=== PATIENT | male | born 2005 | race Hispanic/Latino ===

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

== ENCOUNTER 2023-07-24 20:32 | Emergency (ER) | payer OTHER ==
[~2023-07-24] VITALS: Ht 162.6 cm; Wt 83.9 kg
[~2023-07-24 20:32] MED LIST: HYDR-3421 PO
[2023-07-25] MEDS: 0.9%NACL 1000ML 1,000 ML IV ONE (00:01)
[2023-07-25] MEDS: KETOROLAC 30MG VIAL (30MG/ML) IVP ONE (00:01)
[2023-07-25] MEDS: METOCLOPRAMIDE 10 MG/2 ML VIAL IVP ONE (00:01)
[2023-07-25] MEDS: FAMOTIDINE 20MG VIAL IV ONE (00:01)
[2023-07-25 00:41] LABS: BASOPHILS # (AUTO) 0.09 K/uL (0.00-0.20); EOSINOPHILS # (AUTO) 0.29 K/uL (0.00-0.70); EOSINOPHILS % (AUTO) 3.1 % (0.0-8.0); HEMATOCRIT 44.3 % (42-54); IMMATURE GRANULOCYTE ABSOLUTE 0.05 K/uL (0-1); LYMPHOCYTES # (AUTO) 2.3 K/uL (1.0-4.8); LYMPHOCYTES % (AUTO) 24.4 % (21.0-51.0); MEAN CORPUSCULAR HEMOGLOBIN 29.5 pg (27.0-33.0); MEAN CORPUSCULAR HGB CONC 34.3 g/dL (32.0-36.0); MEAN CORPUSCULAR VOLUME 85.9 fL (80-100); MONOCYTES # (AUTO) 0.6 K/uL (0.1-1.0); MONOCYTES % (AUTO) 6.6 % (3.0-13.0); NEUTROPHILS # (AUTO) 5.9 K/uL (1.8-7.7); NEUTROPHILS % (AUTO) 64.4 % (40.0-77.0); PLATELET COUNT (AUTO) 288 K/uL (130-400); RED BLOOD CELL COUNT(AUTO) 5.16 MIL/uL (4.50-6.20); RED CELL DISTRIBUTION WIDTH 12.5 % (11.0-15.5); WHITE BLOOD COUNT (AUTO) 9.2 K/uL (4.8-10.8)
[2023-07-25 00:43] LABS: APPEARANCE,URINE CLEAR (CLEAR); BILIRUBIN,URINE NEGATIVE (NEGATIVE); COLOR,URINE LIGHT-YELLOW (YELLOW); GLUCOSE, URINE (UA) NEGATIVE (NEGATIVE); KETONES,URINE NEGATIVE (NEGATIVE); LEUKOCYTE ESTERASE ,URINE NEGATIVE Leu/uL (NEGATIVE); NITRATE,URINE NEGATIVE (NEGATIVE); OCCULT BLOOD,URINE NEGATIVE (NEGATIVE); PROTEIN,URINE 10 mg/dL (NEGATIVE); UROBILINOGEN,URINE 0.2 mg/dL (0.2-1.0)
[2023-07-25 00:46] LABS: ADD UA MICROSCOPIC NO
[2023-07-25 00:53] LABS: BACTERIA,URINE None Seen /HPF (None Seen); MUCUS,URINE Rare LPF (None Seen); WBC,URINE 0-1 /HPF (0-1)
[2023-07-25 01:43] LABS: CREATININE 0.8 mg/dL (0.5-1.5); POTASSIUM 4.1 mmol/L (3.5-5.1)
[2023-07-25 02:29] VITALS: BP 124/73; PULSE 80; RESP 18; O2SAT 99
== END 2023-07-25 02:30 | disposition home or self-care (01) ==
LOC: EDH 20:32
DX: S76.012A Strain of muscle, fascia and tendon of left hip, initial encounter (principal); X58.XXXA Exposure to other specified factors, initial encounter; Y93.89 Activity, other specified; Y92.89 Other specified places as the place of occurrence of the external cause; Y99.8 Other external cause status
CPT/HCPCS: 99284; 71045; 80048; 85025; 81001; 36415; 81003; 96374; 96375; J3490; J7030; J1885; J2765

== ENCOUNTER 2024-02-14 22:02 | Emergency (ER) | payer BC ==
[~2024-02-14] VITALS: Ht 165.1 cm; Wt 77.1 kg
[2024-02-14 22:04] VITALS: BP 140/78; PULSE 103; RESP 20; TEMP 98.4
[2024-02-14] MEDS ORDERED: ondanSETRON 4MG INJ IVP ONE (23:00)
[2024-02-14] MEDS ORDERED: 0.9%NACL 1000ML 1,000 ML IV ONE (23:00)
[2024-02-14 23:25] LABS: BASOPHILS # (AUTO) 0.05 K/uL (0.00-0.20); BASOPHILS % (AUTO) 0.5 % (0.0-5.0); EOSINOPHILS # (AUTO) 0.08 K/uL (0.00-0.70); EOSINOPHILS % (AUTO) 0.9 % (0.0-8.0); HEMATOCRIT 43.4 % (42-54); IMMATURE GRANULOCYTE ABSOLUTE 0.04 K/uL (0-1); LYMPHOCYTES % (AUTO) 21.2 % (21.0-51.0); MEAN CORPUSCULAR HEMOGLOBIN 29.2 pg (27.0-33.0); MEAN CORPUSCULAR HGB CONC 33.6 g/dL (32.0-36.0); MEAN CORPUSCULAR VOLUME 86.8 fL (80-100); MONOCYTES # (AUTO) 0.5 K/uL (0.1-1.0); MONOCYTES % (AUTO) 5.4 % (3.0-13.0); NEUTROPHILS # (AUTO) 6.7 K/uL (1.8-7.7); NEUTROPHILS % (AUTO) 71.6 % (40.0-77.0); PLATELET COUNT (AUTO) 283 K/uL (130-400); RED CELL DISTRIBUTION WIDTH 12.2 % (11.0-15.5); WHITE BLOOD COUNT (AUTO) 9.4 K/uL (4.8-10.8)
[2024-02-14 23:34] LABS: CREATININE 0.9 mg/dL (0.5-1.3); POTASSIUM 3.7 mmol/L (3.5-5.1)
[2024-02-14 23:36] LABS: APPEARANCE,URINE CLEAR (CLEAR); BILIRUBIN,URINE NEGATIVE (NEGATIVE); COLOR,URINE COLORLESS (YELLOW); GLUCOSE, URINE (UA) NEGATIVE (NEGATIVE); KETONES,URINE NEGATIVE (NEGATIVE); LEUKOCYTE ESTERASE ,URINE NEGATIVE Leu/uL (NEGATIVE); NITRATE,URINE NEGATIVE (NEGATIVE); OCCULT BLOOD,URINE NEGATIVE (NEGATIVE); PROTEIN,URINE NEGATIVE (NEGATIVE); UROBILINOGEN,URINE 0.2 mg/dL (0.2-1.0)
[2024-02-14 23:37] LABS: ADD UA MICROSCOPIC NO
[2024-02-14 23:40] LABS: ALBUMIN 3.8 g/dL (3.5-5.0); BILIRUBIN,DIRECT 0.1 mg/dL (0.0-0.3); BILIRUBIN,TOTAL 0.3 mg/dL (0.2-1.0); TOTAL PROTEIN, SERUM 7.6 g/dL (6.0-8.3)
[2024-02-14 23:43] LABS: AMPHET/METH SCREEN,URINE NEGATIVE (NEGATIVE); BARBITURATE SCREEN, URINE NEGATIVE (NEGATIVE); BENZODIAZEPINES SCREEN,URINE NEGATIVE (NEGATIVE); CANNABINOID SCREEN,URINE NEGATIVE (NEGATIVE); COCAINE SCREEN,URINE NEGATIVE (NEGATIVE); OPIATE SCREEN,URINE NEGATIVE (NEGATIVE); PHENCYCLIDINE SCREEN,URINE NEGATIVE (NEGATIVE)
[2024-02-16] MEDS ORDERED: FAMO-136 PO (17:30)
[2024-02-16] MEDS ORDERED: ONDA-243 PO (17:30)
== END 2024-02-15 04:16 | disposition left against medical advice (07) ==
LOC: EDH 22:02
DX: R42 Dizziness and giddiness (principal); R53.1 Weakness; F41.9 Anxiety disorder, unspecified; Z79.899 Other long term (current) drug therapy; Z53.29 Procedure and treatment not carried out because of patient's decision for other reasons
CPT/HCPCS: 36415; 80048; 80076; 80305; 81003; 82550; 83690; 85025

== ENCOUNTER 2024-02-16 15:52 | Emergency (ER) | payer BC ==
[~2024-02-16] VITALS: Ht 165.1 cm; Wt 80.7 kg
[2024-02-16 16:36] LABS: BASOPHILS # (AUTO) 0.05 K/uL (0.00-0.20); BASOPHILS % (AUTO) 0.6 % (0.0-5.0); EOSINOPHILS # (AUTO) 0.02 K/uL (0.00-0.70); EOSINOPHILS % (AUTO) 0.3 % (0.0-8.0); HEMATOCRIT 43.2 % (42-54); IMMATURE GRANULOCYTE ABSOLUTE 0.04 K/uL (0-1); LYMPHOCYTES # (AUTO) 1.5 K/uL (1.0-4.8); LYMPHOCYTES % (AUTO) 18.9 % (21.0-51.0); MEAN CORPUSCULAR HEMOGLOBIN 28.7 pg (27.0-33.0); MEAN CORPUSCULAR HGB CONC 33.6 g/dL (32.0-36.0); MEAN CORPUSCULAR VOLUME 85.5 fL (80-100); MONOCYTES # (AUTO) 0.4 K/uL (0.1-1.0); MONOCYTES % (AUTO) 4.4 % (3.0-13.0); NEUTROPHILS % (AUTO) 75.3 % (40.0-77.0); PLATELET COUNT (AUTO) 287 K/uL (130-400); RED BLOOD CELL COUNT(AUTO) 5.05 MIL/uL (4.50-6.20); RED CELL DISTRIBUTION WIDTH 12.1 % (11.0-15.5); WHITE BLOOD COUNT (AUTO) 7.9 K/uL (4.8-10.8)
[2024-02-16 16:41] LABS: CREATININE 0.9 mg/dL (0.5-1.3); POTASSIUM 4.1 mmol/L (3.5-5.1)
[2024-02-16] MEDS: ondanSETRON 4MG INJ IVP ONE (16:51)
[2024-02-16] MEDS: FAMOTIDINE 20MG VIAL IV ONE (16:51)
[2024-02-16] MEDS ORDERED: FAMO-136 PO (17:30)
[2024-02-16] MEDS ORDERED: ONDA-243 PO (17:30)
[2024-02-16 17:40] VITALS: BP 106/80; PULSE 92; RESP 18; TEMP 98.4; O2SAT 98
== END 2024-02-16 18:06 | disposition home or self-care (01) ==
LOC: EDH 15:52
DX: F41.9 Anxiety disorder, unspecified (principal); K29.70 Gastritis, unspecified, without bleeding; Z79.899 Other long term (current) drug therapy
CPT/HCPCS: 99284; 74176; 96374; 96375; 80048; 85025; 36415; 93005; J3490; J2405

== ENCOUNTER 2024-05-03 01:57 | Emergency (ER) | payer BC ==
[~2024-05-03] VITALS: Ht 165.1 cm; Wt 81.6 kg
[~2024-05-03 01:57] MED LIST changes: +FAMO-136 PO; +ONDA-243 PO
[2024-05-03 01:59] VITALS: TEMP 97.3
[2024-05-03 02:37] LABS: BASOPHILS # (AUTO) 0.05 K/uL (0.00-0.20); BASOPHILS % (AUTO) 0.6 % (0.0-5.0); EOSINOPHILS # (AUTO) 0.21 K/uL (0.00-0.70); EOSINOPHILS % (AUTO) 2.4 % (0.0-8.0); HEMATOCRIT 47.4 % (42-54); IMMATURE GRANULOCYTE ABSOLUTE 0.04 K/uL (0-1); LYMPHOCYTES # (AUTO) 2.7 K/uL (1.0-4.8); LYMPHOCYTES % (AUTO) 30.8 % (21.0-51.0); MEAN CORPUSCULAR HEMOGLOBIN 28.9 pg (27.0-33.0); MEAN CORPUSCULAR VOLUME 85.1 fL (80-100); MONOCYTES # (AUTO) 0.5 K/uL (0.1-1.0); NEUTROPHILS # (AUTO) 5.3 K/uL (1.8-7.7); NEUTROPHILS % (AUTO) 59.7 % (40.0-77.0); PLATELET COUNT (AUTO) 314 K/uL (130-400); RED BLOOD CELL COUNT(AUTO) 5.57 MIL/uL (4.50-6.20); RED CELL DISTRIBUTION WIDTH 12.3 % (11.0-15.5); WHITE BLOOD COUNT (AUTO) 8.9 K/uL (4.8-10.8)
[2024-05-03 02:39] VITALS: BP 120/75; PULSE 85; RESP 18; O2SAT 99
[2024-05-03 02:54] LABS: CARBON DIOXIDE 32 mmol/L (21-32); CHLORIDE 103 mmol/L (101-111); CREATINE KINASE, TOTAL 106 U/L (21-232); GLOMERULAR FILTR. RATE CALC 110 mL/min (>90); GLUCOSE,RANDOM 89 mg/dL (70-105); SODIUM SERUM 140 mmol/L (136-145); UREA NITROGEN, BLOOD 9 mg/dL (7-18)
--- NOTE | 2024-05-03 04:06 | ERN ---
General Chief Complaint: Multiple Complaints Stated Complaint: DIFFICULTY SLEEPING, SOB, MUSCLE CRAMPS, CONSTIPAT Time Seen by MD: 02:03 History of Present Illness Initial Comments 19-year-old male who comes in with a chief complaint of difficulty sleeping and shortness of breath. Patient reports he occasionally gets pain over his chest. Patient reports he has also having muscle cramps 3 Allergies: Coded Allergies: No Known Drug Allergies (Unverified Allergy, Unknown, 10/26/19) Home Meds Active Scripts Famotidine (Pepcid) 20 Mg Tablet, 20 MG PO DAILY for 5 Days, #5 TAB Prov:RAMON SAN 02/16/24 Ondansetron (Ondansetron Odt) 4 Mg Tab.rapdis, 4 MG PO BID for 7 Days, #14 TAB Prov:RAMON SAN 02/16/24 Hydroxyzine HCl (Hydroxyzine HCl) 25 Mg Tablet, 25 MG PO BID for anxiety, #15 TAB Prov:HERMELINDA PATEL 11/24/22 Past Medical History Past Medical History: No Pertinent History Past Surgical History: Other Surgical History Other: CHEST SX Social History Social History: ETOH ROS Dictation Constitutional: Negative for fever,chills, and weight loss Eyes: Negative for injury, pain,redness, and discharge ENT: Negative for injury,pain or swelling Cardiovascular: Positive for chest pain Respiratory: Positive shortness of breath Abdomen/GI: Negative for abdominal pain, nausea, vomiting, diarrhea, and constipation Back: Negative for injury and pain : Negative for injury, bleeding and discharge MS/Extremity: Negative for injury and deformity Skin: Negative for rash, and discoloration Neuro: Negative for headache, weakness, numbness, tingling, and seizure Psych: Negative for suicide ideation, homicidal ideation, and hallucinations Physical Exam Physical Exam Dictation General: awake, alert, NAD Head/Face: Normocephalic, atraumatic Eyes: PERRL, EOMI ENT: oral cavity clear, Neck: Trachea midline, suppl Cardiovascular: RRR, normal S1/S2, No MRGs, no JVD Respiratory: CTAB, no respiratory distress, No rales or wheezes Abdomen: Soft, non-tender, non-distended, normal bowel sounds, no guarding or rebound. Skin: Warm, dry, normal turgor, no rash MS/Extremity: Pulses equal, no cyanosis, neurovascular intact, FROM Neuro: COAx4, GCS 15, strength 5/5, CN 2-12 intact, normal cerebellar exam, normal gait, Psych: Normal behavior, mood, and affect normal General Appearance: (+) no apparent distress Results Laboratory and Microbiology Lab and Micro Result Laboratory Tests Test 05/03/24 02:30 White Blood Count 8.9 K/uL (4.8-10.8) Red Blood Count 5.57 MIL/uL (4.50-6.20) Hemoglobin 16.1 g/dL (14.0-18.0) Hematocrit 47.4 % (42-54) Mean Corpuscular Volume 85.1 fL (80-100) Mean Corpuscular Hemoglobin 28.9 pg (27.0-33.0) Mean Corpuscular Hemoglobin Concent 34.0 g/dL (32.0-36.0) Red Cell Distribution Width 12.3 % (11.0-15.5) Platelet Count 314 K/uL (130-400) Mean Platelet Volume 10.7 fL (7.5-10.5) H Immature Granulocyte % (Auto) 0.5 % (0-1) Neutrophils (%) (Auto) 59.7 % (40.0-77.0) Lymphocytes (%) (Auto) 30.8 % (21.0-51.0) Monocytes (%) (Auto) 6.0 % (3.0-13.0) Eosinophils (%) (Auto) 2.4 % (0.0-8.0) Basophils (%) (Auto) 0.6 % (0.0-5.0) Neutrophils # (Auto) 5.3 K/uL (1.8-7.7) Lymphocytes # (Auto) 2.7 K/uL (1.0-4.8) Monocytes # (Auto) 0.5 K/uL (0.1-1.0) Eosinophils # (Auto) 0.21 K/uL (0.00-0.70) Basophils # (Auto) 0.05 K/uL (0.00-0.20) Absolute Immature Granulocyte (auto 0.04 K/uL (0-1) Nucleated Red Blood Cells 0.0 % (0.0-0.19) Sodium Level 140 mmol/L (136-145) Potassium Level 4.0 mmol/L (3.5-5.1) Chloride Level 103 mmol/L (101-111) Carbon Dioxide Level 32 mmol/L (21-32) Blood Urea Nitrogen 9 mg/dL (7-18) Creatinine 1.0 mg/dL (0.5-1.3) Glomerular Filtration Rate Calc 110 mL/min (>90) Random Glucose 89 mg/dL (70-105) Total Calcium 9.3 mg/dL (8.5-10.1) Total Creatine Kinase 106 U/L (21-232) Troponin I High Sensitivity < 4.0 ng/L (4-75) L MDM Patient has a negative workup as labs and chest x-ray are within normal limits MDM: Differential diagnosis: Insomnia Rationale: Tests considered and ordered secondary to shared decision making include: Previous outside records reviewed: Old ER visits. Risk of complication and/or morbidity or mortality of patient management: None Medications-Per medication reconciliation Need for hospitalization: Patient does not meet criteria for hospitalization. Need for emergency major/minor surgery: No There are no social concerns with this patient. Prescription drug management Prescriptions will include symptomatic care Patient's prior external medical records from other ER visits were reviewed by me as indicated. Prior testing and results from previous visits were reviewed. Prior tests were taken into account with medical decision making and resource utilization, independent historian/historians were used to obtain complete medical history. I independently interpreted the test that were performed, results were reviewed by me and considered findings on radiology if ordered. Medical management and examination interpretation discussions were had by me with other qualified healthcare professionals as indicated for the patient's care. ED Course Orders Procedure Category Date Status Time Cbc With Differential LAB 05/03/24 Complete 02:14 Cardiac Panel LAB 05/03/24 Complete 02:14 Chest 1vw RAD 05/03/24 Taken 02:14 12 Lead Ekg Tracing- EKG 05/03/24 Logged Technical 02:14 Basic Metabolic Panel LAB 05/03/24 Complete 02:14 Vital Signs Date Time Temp Pulse Resp B/P (MAP) Pulse Ox O2 Delivery O2 Flow Rate FiO2 05/03/24 02:39 85 18 120/75 99 Room Air* 0 05/03/24 01:59 97.3 85 16 126/86 97 Room Air* 0 05/03/24 01:59 97.3 85 16 126/86 97 Room Air 0 DX & DISP Disposition: Discharge Departure Impression: Primary Impression: Anxiety Additional Impression: Insomnia Condition: Stable Additional Instructions: Please follow up with your primary care physician in the next 1-7 days to discuss your anxiety. Please make sure you have good sleep hygiene in not have any screen time 3 hours before he would like to go to bed Referrals: JERONIMO LARA MD (PCP) HERBIE CHANDLER MD May 03, 2024 04:05
--- NOTE | 2024-05-03 05:11 | EKG ---
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
--- NOTE | 2024-05-03 08:48 | HMCIMG ---
CHEST 1VW HISTORY: Shortness of breath COMPARISON: 07/25/2023 FINDINGS: A frontal projection of the chest was obtained. No acute pulmonary infiltrates is seen. The heart is normal in size. Prominent interstitial markings are seen. Degenerative changes are seen. No evidence of aortic calcification is seen. IMPRESSION: 1. No acute pulmonary infiltrate is seen.
== END 2024-05-03 04:20 | disposition home or self-care (01) ==
LOC: EDH 01:57
DX: G47.00 Insomnia, unspecified (principal); F41.9 Anxiety disorder, unspecified; Z79.899 Other long term (current) drug therapy; Z98.890 Other specified postprocedural states
CPT/HCPCS: 36415; 71045; 80048; 82550; 84484; 85025; 93005; 99284

== ENCOUNTER 2024-05-18 20:33 | Emergency (ER) | payer BC ==
[~2024-05-18] VITALS: Ht 165.1 cm; Wt 81.6 kg
[2024-05-18] MEDS: LACTATED RINGERS 1000ML 1,000 ML IV ONE (21:04)
[2024-05-18 21:05] LABS: BASOPHILS # (AUTO) 0.06 K/uL (0.00-0.20); BASOPHILS % (AUTO) 0.8 % (0.0-5.0); EOSINOPHILS # (AUTO) 0.13 K/uL (0.00-0.70); EOSINOPHILS % (AUTO) 1.8 % (0.0-8.0); HEMATOCRIT 43.5 % (42-54); IMMATURE GRANULOCYTE ABSOLUTE 0.03 K/uL (0-1); LYMPHOCYTES # (AUTO) 1.6 K/uL (1.0-4.8); LYMPHOCYTES % (AUTO) 22.2 % (21.0-51.0); MEAN CORPUSCULAR HEMOGLOBIN 29.1 pg (27.0-33.0); MEAN CORPUSCULAR VOLUME 85.5 fL (80-100); MONOCYTES # (AUTO) 0.5 K/uL (0.1-1.0); MONOCYTES % (AUTO) 6.8 % (3.0-13.0); NEUTROPHILS # (AUTO) 4.9 K/uL (1.8-7.7); PLATELET COUNT (AUTO) 278 K/uL (130-400); RED BLOOD CELL COUNT(AUTO) 5.09 MIL/uL (4.50-6.20); RED CELL DISTRIBUTION WIDTH 12.3 % (11.0-15.5); WHITE BLOOD COUNT (AUTO) 7.2 K/uL (4.8-10.8)
[2024-05-18] MEDS: ondanSETRON 4MG INJ IVP ONE (21:06)
[2024-05-18] MEDS: PANTOPrazole 40 MG/VIAL IVP ONE (21:06)
[2024-05-18 21:08] LABS: APPEARANCE,URINE CLEAR (CLEAR); BILIRUBIN,URINE NEGATIVE (NEGATIVE); COLOR,URINE LIGHT-YELLOW (YELLOW); GLUCOSE, URINE (UA) NEGATIVE (NEGATIVE); KETONES,URINE NEGATIVE (NEGATIVE); LEUKOCYTE ESTERASE ,URINE NEGATIVE Leu/uL (NEGATIVE); NITRATE,URINE NEGATIVE (NEGATIVE); OCCULT BLOOD,URINE NEGATIVE (NEGATIVE); PROTEIN,URINE NEGATIVE (NEGATIVE); UROBILINOGEN,URINE 0.2 mg/dL (0.2-1.0)
[2024-05-18 21:09] LABS: ADD UA MICROSCOPIC NO
[2024-05-18 21:15] LABS: AMPHET/METH SCREEN,URINE NEGATIVE (NEGATIVE); BARBITURATE SCREEN, URINE NEGATIVE (NEGATIVE); BENZODIAZEPINES SCREEN,URINE NEGATIVE (NEGATIVE); CANNABINOID SCREEN,URINE NEGATIVE (NEGATIVE); COCAINE SCREEN,URINE NEGATIVE (NEGATIVE); OPIATE SCREEN,URINE NEGATIVE (NEGATIVE); PHENCYCLIDINE SCREEN,URINE NEGATIVE (NEGATIVE)
[2024-05-18 21:28] LABS: CREATININE 0.9 mg/dL (0.5-1.3); POTASSIUM 4.3 mmol/L (3.5-5.1)
[2024-05-18 21:32] LABS: ALBUMIN 3.6 g/dL (3.5-5.0); BILIRUBIN,TOTAL 0.3 mg/dL (0.2-1.0); TOTAL PROTEIN, SERUM 7.6 g/dL (6.0-8.3)
[2024-05-18] MEDS ORDERED: PANT40TA55 PO (21:43)
--- NOTE | 2024-05-18 21:44 | ERN ---
General Chief Complaint: Nausea,Vomiting,Diarrhea Stated Complaint: WEAKNESS, NAUSEA, DIARRHEA X 1 DAY Time Seen by MD: 20:37 Source: patient, family History of Present Illness Initial Comments PATIENT IS A 19-YEAR-OLD MALE COMING IN TO BE EVALUATED FOR NAUSEOUSNESS AND VOMITING. HE STATES HE WAS TOLD BEFORE TO AVOID GREASY FOODS THAT THIS CAUSES GASTRITIS. HE STATES THAT HE HAS BEEN EATING GREASY FOODS SECONDARY TO THE HOLIDAYS. CAME IN TO BE EVALUATED FOR THESE SYMPTOMS. Allergies: Coded Allergies: No Known Drug Allergies (Unverified Allergy, Unknown, 10/26/19) Home Meds Active Scripts Famotidine (Pepcid) 20 Mg Tablet, 20 MG PO DAILY for 5 Days, #5 TAB Prov:RAMON SAN 02/16/24 Ondansetron (Ondansetron Odt) 4 Mg Tab.rapdis, 4 MG PO BID for 7 Days, #14 TAB Prov:RAMON SAN 02/16/24 Hydroxyzine HCl (Hydroxyzine HCl) 25 Mg Tablet, 25 MG PO BID for anxiety, #15 TAB Prov:HERMELINDA PATEL 11/24/22 Past Medical History Past Medical History: No Pertinent History Past Surgical History: None Surgical History Other: CHEST SX Social History Social History: ETOH ROS Dictation CONSTITUTIONAL: NO CHILLS, NO FEVER, NO WEAKNESS, NO DIAPHORESIS, NO MALAISE. HEAD/FACE: NO SIGNS OF TRAUMA. EENT: NO EYE PAIN, NO BLURRED VISION, NO TEARING, NO DOUBLE VISION, NO EAR PAIN, NO EAR DISCHARGE, NO NOSE PAIN, NO NASAL CONGESTION, NO THROAT PAIN, NO THROAT SWELLING, NO MOUTH PAIN. RESPIRATORY: NO COUGH, NO ORTHOPNEA, NO SOB, NO STRIDOR, NO WHEEZING. CARDIOVASCULAR: NO CHEST PAIN, NO EDEMA, NO PALPITATIONS, NO SYNCOPE. GASTROINTESTINAL/ABDOMINAL: NO ABDOMINAL PAIN, NO CONSTIPATION, DIARRHEA, NAUSEA, VOMITING. GENITOURINARY: NO ABNORMAL DISCHARGE, NO DYSURIA, NO FREQUENT URINATION, NO HEMATURIA. NO COMPLAINTS OF PAIN IN THE GENITALS. MUSCULOSKELETAL: NO BACK PAIN, NO GOUT, NO JOINT PAIN, NO JOINT SWELLING, NO MUSCLE PAIN, NO MUSCLE STIFFNESS, NO NECK PAIN. INTEGUMENTARY: NO CHANGE IN COLOR, NO CHANGE IN HAIR/NAILS, NO DRYNESS, NO LESION, NO LUMPS, NO RASH. NEUROLOGICAL/PSYCH: NO ANXIETY, NOT DEPRESSED, NO EMOTIONAL PROBLEM, NO HEADACHE, NO NUMBNESS, NO PRE-EXISTING DEFICIT, NO HISTORY OF SEIZURES, NO TREMORS, NO WEAKNESS. HEMATOLOGIC/LYMPHATIC: NOT ANEMIC, NO HISTORY OF BLOOD CLOTS, NO APPARENT BLEEDING, NO BRUISING, GLANDS NOT SWOLLEN. ALL SYSTEMS NEGATIVE, EXCEPT NOTED. Physical Exam Physical Exam Dictation VITAL SIGNS: REVIEWED. GENERAL APPEARANCE: ALERT, ORIENTED X3, NO ACUTE DISTRESS, OBESE. HEAD AND FACE: NON-TRAUMATIC. EYES: PERRL, PINK CONJUNCTIVAS, EYELID NO TRAUMA, ANTERIOR CHAMBER CLEAR. EARS: PINNAS INTACT AND NO SIGNS OF TRAUMA OR ERYTHEMA. EAR CANALS CLEAR AND NO DISCHARGE. TMS NO ERYTHEMA. NOSE: NO DISCHARGE, NO BLEEDING. OROPHARYNX: MOUTH NORMAL, TEETH NO CARIES, TONGUE PINK. PHARYNX CLEAR, NO ERYTHEMA. TONSILS NO EXUDATES, NO ABSCESSES NOTED. MUCOUS MEMBRANE MOIST. NECK: SUPPLE, NON-TENDER, NO THYROMEGALY, NO MASSES, NO JVD, NO BRUITS. BREAST: DEFERRED. CHEST: NO TENDERNESS, NO CREPITUS, NO PARADOXICAL MOVEMENT, NO RETRACTIONS. LUNGS: CLEAR, WELL-VENTILATED, SYMMETRIC, NO RALES, NO WHEEZING, NO RHONCHI, NO STRIDOR, GOOD BREATH SOUNDS BILATERALLY. HEART: REGULAR RATE, REGULAR RHYTHM, NO MURMUR, NO GALLOPS. VASCULAR: NO PERIPHERAL EDEMA. ABDOMEN: SOFT, POSITIVE BOWEL SOUNDS, NONDISTENDED, NO GUARDING, NONTENDER, NO REBOUND, NO MASSES NO HEPATOMEGALY, NO SPLENOMEGALY, NO DE LEON'S SIGN, NO HERNIAS. RECTAL: DEFERRED. GENITAL: DEFERRED. NEUROLOGICAL: NORMAL SPEECH, GROSS MOTOR FUNCTION INTACT, GROSS SENSORY FUNCTION INTACT. MUSCULOSKELETAL: NECK NONTENDER, FULL RANGE OF MOTION, BACK NONTENDER, FULL RANGE OF MOTION. EXTREMITIES: NONTENDER, FULL RANGE OF MOTION. SKIN: COLOR PINK, DRY, NO TURGOR, NO RASH, NO LACERATIONS, NO ABRASIONS, NO CONTUSIONS. LYMPHATICS: DEFERRED. Results Laboratory and Microbiology Lab and Micro Result Laboratory Tests Test 05/18/24 20:42 05/18/24 20:56 05/18/24 20:58 Urine Color LIGHT-YELLOW (YELLOW) Urine Appearance CLEAR (CLEAR) Urine pH 6.0 (5.0-8.0) Urine Specific Olga 1.024 (1.001-1.031) Urine Protein NEGATIVE mg/dL (NEGATIVE) Urine Glucose (UA) NEGATIVE mg/dL (NEGATIVE) Urine Ketones NEGATIVE mg/dL (NEGATIVE) Urine Occult Blood NEGATIVE (NEGATIVE) Urine Nitrate NEGATIVE (NEGATIVE) Urine Bilirubin NEGATIVE mg/dL (NEGATIVE) Urine Urobilinogen 0.2 mg/dL (0.2-1.0) Urine Leukocyte Esterase NEGATIVE Andre/uL Urine Opiates Screen NEGATIVE (NEGATIVE) Urine Barbiturates Screen NEGATIVE (NEGATIVE) Urine Phencyclidine Screen NEGATIVE (NEGATIVE) Urine Amphetamines Screen NEGATIVE (NEGATIVE) Urine Benzodiazepines Screen NEGATIVE (NEGATIVE) Urine Cocaine Screen NEGATIVE (NEGATIVE) Urine Marijuana (THC) Screen NEGATIVE (NEGATIVE) Sodium Level 143 mmol/L (136-145) Potassium Level 4.3 mmol/L (3.5-5.1) Chloride Level 104 mmol/L (101-111) Carbon Dioxide Level 29 mmol/L (21-32) Blood Urea Nitrogen 11 mg/dL (7-18) Creatinine 0.9 mg/dL (0.5-1.3) Glomerular Filtration Rate Calc 125 mL/min (>90) Random Glucose 80 mg/dL (70-105) Total Calcium 9.3 mg/dL (8.5-10.1) Total Bilirubin 0.3 mg/dL (0.2-1.0) Aspartate Amino Transf (AST/SGOT) 23 U/L (10-37) Alanine Aminotransferase (ALT/SGPT) 33 U/L (12-78) Alkaline Phosphatase 109 U/L (50-136) Total Creatine Kinase 102 U/L (21-232) Total Protein 7.6 g/dL (6.0-8.3) Albumin 3.6 g/dL (3.5-5.0) Lipase 15 U/L (16-77) L White Blood Count 7.2 K/uL (4.8-10.8) Red Blood Count 5.09 MIL/uL (4.50-6.20) Hemoglobin 14.8 g/dL (14.0-18.0) Hematocrit 43.5 % (42-54) Mean Corpuscular Volume 85.5 fL (80-100) Mean Corpuscular Hemoglobin 29.1 pg (27.0-33.0) Mean Corpuscular Hemoglobin Concent 34.0 g/dL (32.0-36.0) Red Cell Distribution Width 12.3 % (11.0-15.5) Platelet Count 278 K/uL (130-400) Mean Platelet Volume 10.8 fL (7.5-10.5) H Immature Granulocyte % (Auto) 0.4 % (0-1) Neutrophils (%) (Auto) 68.0 % (40.0-77.0) Lymphocytes (%) (Auto) 22.2 % (21.0-51.0) Monocytes (%) (Auto) 6.8 % (3.0-13.0) Eosinophils (%) (Auto) 1.8 % (0.0-8.0) Basophils (%) (Auto) 0.8 % (0.0-5.0) Neutrophils # (Auto) 4.9 K/uL (1.8-7.7) Lymphocytes # (Auto) 1.6 K/uL (1.0-4.8) Monocytes # (Auto) 0.5 K/uL (0.1-1.0) Eosinophils # (Auto) 0.13 K/uL (0.00-0.70) Basophils # (Auto) 0.06 K/uL (0.00-0.20) Absolute Immature Granulocyte (auto 0.03 K/uL (0-1) Nucleated Red Blood Cells 0.0 % (0.0-0.19) Labs Reviewed?: Yes EKG/XRAY/US/CT/MRI EKG Comment 05/18/2024 TIME 8:48 P.M. VENTRICULAR RATE [address] WAVE ELEVATION OR DEPRESSION AR 138 MDM MDM: DIFFERENTIAL DIAGNOSIS: VIRAL GASTROENTERITIS, NAUSEA AND VOMITING, HISTORY OF GASTRITIS, PATIENT IS A 19-YEAR-OLD GENTLEMAN COMING IN TO BE EVALUATED FOR NAUSEOUSNESS AND VOMITING. PER PATIENT THESE SYMPTOMS HAS BEEN ONGOING FOR SOME TIME HE WAS DIAGNOSED WITH A GASTRITIS AND WAS TOLD TO AVOID GREASY FOODS HE STATES THAT DURING THE HOLIDAYS HE MORE RECEIVE WITH A NORMAL. UPON EVALUATION HE STATES THERE IS NO FOCAL TENDERNESS IN HIS ABDOMEN. LABORATORY WORKUP DID NOT DISCLOSE ACUTE FINDINGS. PATIENT WILL BE DISCHARGED WITH A DIAGNOSIS OF VIRAL GASTROENTERITIS AND HISTORY OF GASTRITIS. MEDICATION WAS GIVEN AND PATIENT REMAINED ASYMPTOMATIC THROUGHOUT ER VISIT. ED Course Orders Procedure Category Date Status Time Cbc With Differential LAB 05/18/24 Complete 20:42 Comprehensive LAB 05/18/24 Complete Metabolic Panel 20:42 Urinalysis Profile LAB 05/18/24 Complete 20:42 12 Lead Ekg Tracing- EKG 05/18/24 Logged Technical 20:42 Lactated Ringers PHA 05/18/24 Complete 1000ml (Lactated 21:00 Ondansetron 4mg Inj PHA 05/18/24 Complete (Zofran 4mg Inj) 21:00 Pantoprazole 40mg Inj PHA 05/18/24 Complete (Protonix 40mg Inj 21:00 Creatine Kinase, Total LAB 05/18/24 Complete 20:42 Lipase LAB 05/18/24 Complete 20:42 Drug Screen Urine LAB 05/18/24 Complete 20:42 Current Medications Medications (Trade) Dose Ordered Sig/Braulio Route PRN Reason Start Time Stop Time Status Last Admin Dose Admin Lactated Ringer's 1,000 ml @ 0 mls/hr ONCE ONCE IV 05/18/24 21:00 05/18/24 21:01 DC 05/18/24 21:04 Ondansetron HCl (zoFRAN 4MG INJ) 4 mg ONCE ONCE IVP 05/18/24 21:00 05/18/24 21:01 DC 05/18/24 21:06 Pantoprazole Sodium (PROTonix 40MG INJ) 40 mg ONCE ONCE IVP 05/18/24 21:00 05/18/24 21:01 DC 05/18/24 21:06 Vital Signs Date Time Temp Pulse Resp B/P (MAP) Pulse Ox O2 Delivery O2 Flow Rate FiO2 05/18/24 20:36 98.2 90 16 108/75 99 Room Air 0 05/18/24 20:35 98.2 90 16 108/75 99 Room Air* 0 21 DX & DISP Disposition: Discharge Departure Impression: Primary Impression: Gastritis Additional Impression: Viral syndrome Condition: Stable Scripts Pantoprazole Sodium (Protonix) 40 Mg Ectab 1 TAB PO DAILY for 30 Days, #30 TAB 0 Refills Prov: HAYDER HE MD 05/18/24 Additional Instructions: FOLLOW-UP WITH PRIMARY CARE PROVIDER IN 1 TO 2 DAYS. TAKE MEDICATIONS DIRECTED HERE IN THE EMERGENCY ROOM. OKAY TO CONTINUE HOME MEDICATIONS UNLESS OTHERWISE DISCUSSED DURING YOUR VISIT IN THE EMERGENCY ROOM TODAY. RETURN TO YOUR NEAREST EMERGENCY ROOM IF SYMPTOMS WORSEN OR IF THERE IS NO IMPROVEMENT. CALL 911 IF YOU NEED IMMEDIATE ASSISTANCE. TAKE TYLENOL [id number] NEEDED AND IF NO CONTRAINDICATIONS ARE PRESENT. INCREASE ORAL HYDRATION. A WOUND CULTURE OR URINE CULTURE WAS ORDERED HERE IN THE EMERGENCY ROOM DEPARTMENT PLEASE FOLLOW-UP WITH PRIMARY CARE PROVIDER AND ADVISE THEM TO GET REPEAT PORTS FROM OUR FACILITY. IF YOU HAD ANY DONNA WRAP/SPLINTS THAT WERE APPLIED HERE, PLEASE DO NOT REMOVE THEM UNTIL YOU SEE YOUR PRIMARY CARE OR SPECIALTY. REFERRALS: Referrals: SELF,REFERRAL (PCP) RAMON CORRALES MD Time of Disposition: 21:42 HAYDER HE MD May 18, 2024 21:44
[2024-05-18 21:46] VITALS: BP 122/76; PULSE 86; RESP 16; TEMP 98.4; O2SAT 99
[2024-05-18] MEDS: acetaMINOPHEN 500 MG TABLET PO ONE (21:53)
--- NOTE | 2024-05-18 23:42 | EKG ---
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
== END 2024-05-18 21:59 | disposition home or self-care (01) ==
LOC: EDH 20:33
DX: K29.70 Gastritis, unspecified, without bleeding (principal); B34.9 Viral infection, unspecified; Z79.899 Other long term (current) drug therapy
CPT/HCPCS: 99284; 96374; 96375; 82550; 80053; 80305; 83690; 85025; 36415; 93005; 81003; J7120; J2405; J2470

== ENCOUNTER 2024-06-04 11:48 | Emergency (ER) | payer BC ==
[~2024-06-04] VITALS: Ht 165.1 cm; Wt 81.6 kg
[~2024-06-04 11:48] MED LIST changes: +PANT40TA55 PO
[2024-06-04 12:31] LABS: APPEARANCE,URINE CLEAR (CLEAR); BILIRUBIN,URINE NEGATIVE (NEGATIVE); COLOR,URINE COLORLESS (YELLOW); GLUCOSE, URINE (UA) NEGATIVE (NEGATIVE); KETONES,URINE NEGATIVE (NEGATIVE); LEUKOCYTE ESTERASE ,URINE NEGATIVE Leu/uL (NEGATIVE); NITRATE,URINE NEGATIVE (NEGATIVE); OCCULT BLOOD,URINE NEGATIVE (NEGATIVE); PH,URINE 6.5 (5.0-8.0); PROTEIN,URINE NEGATIVE (NEGATIVE); UROBILINOGEN,URINE 0.2 mg/dL (0.2-1.0)
[2024-06-04 12:35] LABS: RBC,URINE 0-1 /HPF (0-1); WBC,URINE 0-1 /HPF (0-1)
--- NOTE | 2024-06-04 13:04 | EKG ---
[facility] Test Date: 2024-06-04 Test Time: 12:56:53 Pat Name: ROGELIO HANEY Department: [facility] Patient ID: [id number] Room: Gender: M Deputy Probation Officer: [id number] : 2005 Requested By: ROD CARPENTER Order Number: [id number] Reading MD: Anjum Adler Measurements Intervals [place] Rate: 80 P: 71 [place]: 142 QRS: 61 QRSD: 86 T: 41 QT: 363 QTc: 419 Interpretive Statements Sinus rhythm Compared to ECG 05/18/2024 20:48:59 ST (T wave) deviation no longer present Electronically Signed On 06-05-2024 10:23:28 INCOMING FREIGHT CLERK by Anjum Adler Please click the below link to view image of tracing.
--- NOTE | 2024-06-04 13:14 | ERN ---
ED Note History of Present Illness Stated Complaint: LIGHTHEADEDNESS Chief Complaint: Blood Sugar Problem Time Seen by MD: 13:07 Dictation: 19-year-old male without past medical history presented to the ER complaining of dizziness, weakness times 3 to 5 days , but he has blamed that everything started around 3 weeks. Stated that he not skip meals, he does not have fever, chills. Patient denies illicit drugs. EMS reported the patient glucose level was low in the 40s, the D5 IV was given to him on the route to the hospital. Allergies: Coded Allergies: No Known Drug Allergies (Unverified Allergy, Unknown, 10/26/19) Home Meds Active Scripts Pantoprazole Sodium (Protonix) 40 Mg Ectab, 1 TAB PO DAILY for 30 Days, #30 TAB 0 Refills Prov:HAYDER HE MD 05/18/24 Famotidine (Pepcid) 20 Mg Tablet, 20 MG PO DAILY for 5 Days, #5 TAB Prov:RAMNO SAN 02/16/24 Ondansetron (Ondansetron Odt) 4 Mg Tab.rapdis, 4 MG PO BID for 7 Days, #14 TAB Prov:RAMON SAN 02/16/24 Hydroxyzine HCl (Hydroxyzine HCl) 25 Mg Tablet, 25 MG PO BID for anxiety, #15 TAB Prov:HERMELINDA PATEL 11/24/22 Past Medical History Past Medical History: No Pertinent History Surgical History: None Surgical History Other: CHEST SX Social History: ETOH Review of System Dictation NEGATIVE EXCEPT PER HPI Constitutional: Negative for fever,chills, and weight loss. Eyes: Negative for injury, pain,redness, and discharge ENT: Negative for injury,pain or swelling Cardiovascular: denies chest pain, palpitations, and edema Respiratory: Negative for shortness of breath, cough, and wheezing, Abdomen/GI: Negative for abdominal pain, nausea, vomiting, diarrhea, and constipation Back: Negative for injury and pain : Negative for injury, bleeding and discharge MS/Extremity: Negative for injury and deformity Skin: Negative for rash, and discoloration Neuro: Reports dizziness, Psych: Negative for suicide ideation, homicidal ideation, and hallucinations Initial Vital Sign VS Vital Signs Date Time Temp Pulse Resp B/P (MAP) Pulse Ox O2 Delivery O2 Flow Rate FiO2 06/04/24 11:50 91 17 113/67 99 Room Air 0 06/04/24 12:30 98.2 21 Physical Exam Dictation General: awake, alert, NAD Head/Face: Normocephalic, atraumatic Eyes: PERRL, EOMI, vision at baseline ENT: oral cavity clear, TMs clear, no signs of infection Neck: Trachea midline, supple, no nuchal rigidity Cardiovascular: RRR, normal S1/S2, No MRGs, no JVD Respiratory: CTAB, no respiratory distress, No rales or wheezes Abdomen: Soft , no tender Skin: Warm, dry, normal turgor, no rash MS/Extremity: Pulses equal, no cyanosis, neurovascular intact, FROM Neuro: COAx4, GCS 15, strength 5/5, CN 2-12 intact, normal cerebellar exam, normal gait, Psych: Normal behavior, mood, and affect normal Results (Laboratory/Radiology) Laboratory/Radiology Laboratory Tests Test 06/04/24 12:08 06/04/24 12:55 06/04/24 13:21 06/04/24 14:48 Urine Color COLORLESS (YELLOW) Urine Appearance CLEAR (CLEAR) Urine pH 6.5 (5.0-8.0) Urine Specific [place] 1.004 (1.001-1.031) Urine Protein NEGATIVE mg/dL (NEGATIVE) Urine Glucose (UA) NEGATIVE mg/dL (NEGATIVE) Urine Ketones NEGATIVE mg/dL (NEGATIVE) Urine Occult Blood NEGATIVE (NEGATIVE) Urine Nitrate NEGATIVE (NEGATIVE) Urine Bilirubin NEGATIVE mg/dL (NEGATIVE) Urine Urobilinogen 0.2 mg/dL (0.2-1.0) Urine Leukocyte Esterase NEGATIVE Andre/uL Urine RBC 0-1 /HPF (0-1) Urine WBC 0-1 /HPF (0-1) Urine Bacteria None /HPF (None Seen) White Blood Count 7.8 K/uL (4.8-10.8) Red Blood Count 5.32 MIL/uL (4.50-6.20) Hemoglobin 15.5 g/dL (14.0-18.0) Hematocrit 45.7 % (42-54) Mean Corpuscular Volume 85.9 fL (80-100) Mean Corpuscular Hemoglobin 29.1 pg (27.0-33.0) Mean Corpuscular Hemoglobin Concent 33.9 g/dL (32.0-36.0) Red Cell Distribution Width 12.5 % (11.0-15.5) Platelet Count 289 K/uL (130-400) Mean Platelet Volume 10.9 fL (7.5-10.5) H Immature Granulocyte % (Auto) 0.3 % (0-1) Neutrophils (%) (Auto) 64.1 % (40.0-77.0) Lymphocytes (%) (Auto) 24.9 % (21.0-51.0) Monocytes (%) (Auto) 5.4 % (3.0-13.0) Eosinophils (%) (Auto) 4.5 % (0.0-8.0) Basophils (%) (Auto) 0.8 % (0.0-5.0) Neutrophils # (Auto) 5.0 K/uL (1.8-7.7) Lymphocytes # (Auto) 2.0 K/uL (1.0-4.8) Monocytes # (Auto) 0.4 K/uL (0.1-1.0) Eosinophils # (Auto) 0.35 K/uL (0.00-0.70) Basophils # (Auto) 0.06 K/uL (0.00-0.20) Absolute Immature Granulocyte (auto 0.02 K/uL (0-1) Nucleated Red Blood Cells 0.0 % (0.0-0.19) Sodium Level 139 mmol/L (136-145) Potassium Level 3.6 mmol/L (3.5-5.1) Chloride Level 100 mmol/L (101-111) L Carbon Dioxide Level 30 mmol/L (21-32) Blood Urea Nitrogen 9 mg/dL (7-18) Creatinine 0.9 mg/dL (0.5-1.3) Glomerular Filtration Rate Calc 125 mL/min (>90) Random Glucose 118 mg/dL (70-105) H Total Calcium 9.1 mg/dL (8.5-10.1) Troponin I High Sensitivity < 4 ng/L (4-75) L Whole Blood Glucose 132 MG/DL (70-110) H 90 MG/DL (70-110) ED Course ED Course Orders Procedure Category Date Status Time Cbc With Differential LAB 06/04/24 Complete 12:10 Basic Metabolic Panel LAB 06/04/24 Complete 12:10 12 Lead Ekg Tracing- EKG 06/04/24 Complete Technical 12:10 Troponin I High LAB 06/04/24 Complete Sensitivity 12:10 Urinalysis LAB 06/04/24 Complete W/Microscopic 12:10 Vital Signs Date Time Temp Pulse Resp B/P (MAP) Pulse Ox O2 Delivery O2 Flow Rate FiO2 06/04/24 14:31 98.2 85 16 97/56 97 Room Air* 0 06/04/24 12:30 98.2 87 16 106/63 99 Room Air* 0 06/04/24 11:50 91 17 113/67 99 Room Air 0 Medical Decision Making MDM 19-year-old male with hypoglycemia symptoms, dizziness, weakness. He received D5 NS on route to the hospital per EMS. Glucose level was performed here and it was above 100, last glucose level was 118 in the lab, after 2 hours it was rechecked and was 90. Hypoglycemia Patient he will need a further evaluation by primary care physician. Recommendation is to check glucose level often chills for q.6 hours home, make a log and take it to primary care physician. DX & DISP Disposition: Discharge Departure Impression: Primary Impression: Hypoglycemia Condition: Stable Additional Instructions: RETURN TO ER FOR ANY ACUTE OR WORSENING SYMPTOMS. FOLLOW-UP IN 1-2 DAYS WITH PRIMARY PROVIDER FOR RECHECK OF TODAY'S SYMPTOMS. Referrals: SELF,REFERRAL (PCP) Time of Disposition: 15:01 ADAMA HUERTA MD Jun 04, 2024 13:13
[2024-06-04 13:15] LABS: BASOPHILS # (AUTO) 0.06 K/uL (0.00-0.20); BASOPHILS % (AUTO) 0.8 % (0.0-5.0); EOSINOPHILS # (AUTO) 0.35 K/uL (0.00-0.70); EOSINOPHILS % (AUTO) 4.5 % (0.0-8.0); HEMATOCRIT 45.7 % (42-54); IMMATURE GRANULOCYTE ABSOLUTE 0.02 K/uL (0-1); LYMPHOCYTES % (AUTO) 24.9 % (21.0-51.0); MEAN CORPUSCULAR HEMOGLOBIN 29.1 pg (27.0-33.0); MEAN CORPUSCULAR HGB CONC 33.9 g/dL (32.0-36.0); MEAN CORPUSCULAR VOLUME 85.9 fL (80-100); MONOCYTES # (AUTO) 0.4 K/uL (0.1-1.0); MONOCYTES % (AUTO) 5.4 % (3.0-13.0); NEUTROPHILS % (AUTO) 64.1 % (40.0-77.0); PLATELET COUNT (AUTO) 289 K/uL (130-400); RED BLOOD CELL COUNT(AUTO) 5.32 MIL/uL (4.50-6.20); RED CELL DISTRIBUTION WIDTH 12.5 % (11.0-15.5); WHITE BLOOD COUNT (AUTO) 7.8 K/uL (4.8-10.8)
[2024-06-04 13:25] LABS: CREATININE 0.9 mg/dL (0.5-1.3); POTASSIUM 3.6 mmol/L (3.5-5.1)
[2024-06-04 15:44] VITALS: BP 103/60; PULSE 91; RESP 16; TEMP 98.2; O2SAT 99
== END 2024-06-04 15:58 | disposition home or self-care (01) ==
LOC: EDH 11:48
DX: E16.2 Hypoglycemia, unspecified (principal); Z79.899 Other long term (current) drug therapy
CPT/HCPCS: 36415; 80048; 81001; 82948; 84484; 85025; 93005; 99284

== ENCOUNTER 2024-07-04 04:12 | Emergency (ER) | payer BC ==
[~2024-07-04] VITALS: Ht 165.1 cm; Wt 81.6 kg
--- NOTE | 2024-07-04 04:33 | ERN ---
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 According to the EMS assessment, his blood sugar level was recorded at 48, prompting treatment with D5, which successfully elevated his blood sugar to 98. The patient has experienced similar episodes in the past month and is currently presenting with hypoglycemia. He is cognizant of his hypoglycemic episodes and sometimes checks his blood sugar using his grandmother's glucometer when he feels unwell. He reports no current use of alcohol, tobacco, or illicit drugs. Allergies: Coded Allergies: No Known Drug Allergies (Unverified Allergy, Unknown, 10/26/19) Home Meds Active Scripts Pantoprazole Sodium (Protonix) 40 Mg Ectab, 1 TAB PO DAILY for 30 Days, #30 TAB 0 Refills Prov:HAYDER HE MD 05/18/24 Famotidine (Pepcid) 20 Mg Tablet, 20 MG PO DAILY for 5 Days, #5 TAB Prov:RAMON SAN 02/16/24 Ondansetron (Ondansetron Odt) 4 Mg Tab.rapdis, 4 MG PO BID for 7 Days, #14 TAB Prov:RAMON SAN 02/16/24 Hydroxyzine HCl (Hydroxyzine HCl) 25 Mg Tablet, 25 MG PO BID for anxiety, #15 TAB Prov:HERMELINDA PATEL 11/24/22 Past Medical History Past Medical History: No Pertinent History Surgical History: None Surgical History Other: CHEST SX Social History: ETOH Review of System Dictation REVIEW OF SYSTEMS CONSTITUTIONAL: Denies fevers, chills, or night sweats. No unintentional weight loss reported. NEUROLOGICAL: Denies headache, amaurosis fugax, motor weakness, sensory deficit, vertigo/spinning sensation, gait abnormalities, or tremors. ENT: No hearing loss, otalgia, otorrhea, rhinitis, rhinorrhea, hoarseness, or sore throat. CARDIOVASCULAR: Denies any exertional angina, dyspnea on exertion, orthopnea, paroxysmal nocturnal dyspnea, palpitations, life-threatening arrhythmias, claudication. PULMONARY: Denies any shortness of breath, cough, phlegm/sputum, hemoptysis, pleuritic chest pain. SLEEP: Denies morning headaches, daytime somnolence or napping. Denies difficulty falling asleep, staying asleep, waking from sleep. Denies knowledge of snoring. GASTROINTESTINAL: Denies any type of dysphagia to either liquids or solids. Denies nausea, vomiting, pyrosis, early satiety, abdominal pain, diarrhea, constipation, or changes in stool consistency or caliber. Denies coffee-ground emesis, hematemesis, hematochezia, or melanotic stools. GENITOURINARY: Denies frequency, urgency, nocturia, hematuria or incontinence (Storage/Irritative symptoms.) Low urinary stream, straining to void, urinary intermittency or hesitancy, splitting of the voiding stream, terminal dribbling. ENDOCRINOLOGIC: Denies polyuria, polydipsia, polyphagia or heat/cold intolerances. HEMATOLOGIC: Denies thrombophilia/previous clots, or coagulopathy/bleeding disorders. ONCOLOGIC: Denies personal history of malignancy. DERMATOLOGIC: Denies rashes or pruritus. PSYCHIATRIC: Denies any suicidal or homicidal ideation. Denies hallucinations. Initial Vital Sign VS Vital Signs Date Time Temp Pulse Resp B/P (MAP) Pulse Ox O2 Delivery O2 Flow Rate FiO2 07/04/24 04:13 98.4 91 16 123/85 98 Room Air* 0 21 Physical Exam Dictation PHYSICAL EXAM GENERAL APPEARANCE: The patient is awake, alert, and oriented, in no acute cardiopulmonary distress. NEUROLOGICAL: Cranial nerves II-XII grossly intact. Motor is 5/5 in bilateral upper and lower extremities proximal to distal. No sensory deficits. HEENT: Face is symmetric. Pupils are equal and reactive. Extraocular movements are intact. NECK: Supple. No JVD. No thyromegaly. No submental, submandibular, pre- /postauricular, occipital or supraclavicular lymphadenopathy. CHEST: Normal chest expansion. No Telemetry. LUNGS: Absence of any rales, rhonchi or any wheezing. CARDIOVASCULAR: Regular. S1 and S2 normal. No appreciable rubs, murmurs or gallops. ABDOMEN: Soft, nontender, and nondistended. There is no rebound, voluntary guarding, or rigidity. : Deferred. No Hobson. EXTREMITIES: Non-edematous and not cyanotic. No clubbing. Good capillary refill. SKIN: No skin breakdown. Results (Laboratory/Radiology) Laboratory/Radiology Laboratory Tests Test 07/04/24 04:24 07/04/24 04:40 Whole Blood Glucose 113 MG/DL (70-110) H White Blood Count 10.4 K/uL (4.8-10.8) Red Blood Count 5.40 MIL/uL (4.50-6.20) Hemoglobin 15.7 g/dL (14.0-18.0) Hematocrit 47.1 % (42-54) Mean Corpuscular Volume 87.2 fL (80-100) Mean Corpuscular Hemoglobin 29.1 pg (27.0-33.0) Mean Corpuscular Hemoglobin Concent 33.3 g/dL (32.0-36.0) Red Cell Distribution Width 12.2 % (11.0-15.5) Platelet Count 288 K/uL (130-400) Mean Platelet Volume 10.5 fL (7.5-10.5) Immature Granulocyte % (Auto) 0.5 % (0-1) Neutrophils (%) (Auto) 68.0 % (40.0-77.0) Lymphocytes (%) (Auto) 19.1 % (21.0-51.0) L Monocytes (%) (Auto) 6.2 % (3.0-13.0) Eosinophils (%) (Auto) 5.5 % (0.0-8.0) Basophils (%) (Auto) 0.7 % (0.0-5.0) Neutrophils # (Auto) 7.1 K/uL (1.8-7.7) Lymphocytes # (Auto) 2.0 K/uL (1.0-4.8) Monocytes # (Auto) 0.6 K/uL (0.1-1.0) Eosinophils # (Auto) 0.57 K/uL (0.00-0.70) Basophils # (Auto) 0.07 K/uL (0.00-0.20) Absolute Immature Granulocyte (auto 0.05 K/uL (0-1) Nucleated Red Blood Cells 0.0 % (0.0-0.19) Sodium Level 141 mmol/L (136-145) Potassium Level 3.8 mmol/L (3.5-5.1) Chloride Level 102 mmol/L (101-111) Carbon Dioxide Level 33 mmol/L (21-32) H Blood Urea Nitrogen 6 mg/dL (7-18) L Creatinine 0.9 mg/dL (0.5-1.3) Glomerular Filtration Rate Calc 125 mL/min (>90) Random Glucose 107 mg/dL (70-105) H Total Calcium 9.2 mg/dL (8.5-10.1) Troponin I High Sensitivity < 4 ng/L (4-75) L ED Course ED Course Orders Procedure Category Date Status Time Cbc With Differential LAB 07/04/24 Complete 04:16 Basic Metabolic Panel LAB 07/04/24 Complete 04:16 Troponin I High LAB 07/04/24 Complete Sensitivity 04:16 Vital Signs Date Time Temp Pulse Resp B/P (MAP) Pulse Ox O2 Delivery O2 Flow Rate FiO2 07/04/24 05:39 98.4 87 12 119/83 98 Room Air* 0 07/04/24 05:16 98.4 93 12 113/80 99 Room Air* 0 07/04/24 04:25 98.8 90 14 124/84 98 Room Air* 0 07/04/24 04:14 98.4 91 16 123/85 98 Room Air 0 07/04/24 04:13 98.4 91 16 123/85 98 Room Air* 0 21 Medical Decision Making [facility] MDM Differential diagnosis: Hypoglycemia, Anxiety disorder Rationale: Tests considered and ordered secondary to shared decision making include: Previous outside records reviewed: Old ER visits. Risk of complication and/or morbidity or mortality of patient management: None Medications-Per medication reconciliation Need for hospitalization: Patient does not meet criteria for hospitalization. Need for emergency major/minor surgery: No There are no social concerns with this patient. Prescription drug management Prescriptions will include symptomatic care Patient's prior external medical records from other ER visits were reviewed by me as indicated. Prior testing and results from previous visits were reviewed. Prior tests were taken into account with medical decision making and resource utilization, independent historian/historians were used to obtain complete medical history. I independently interpreted the test that were performed, results were reviewed by me and considered findings on radiology if ordered. DX & DISP Disposition: Discharge Departure Impression: Primary Impression: Hypoglycemia Additional Impression: Anxiety disorder Condition: Stable Additional Instructions: Signs and symptoms of hypoglycemia: Feeling confused, Having trouble speaking or slurred speech, Blurry vision or seeing double, Loss of balance or trouble walking, and Suddenly feeling very weak or sleepy. Treatment: eat or drink 15 grams of carbohydrates, wait 15 minutes, and then check your blood sugar again Eat a balanced snack or meal with protein and carbs Prevention Eat meals at set times Have snacks between meals Don't skip or delay meals or snacks Limit foods high in sugar and concentrated sweets on their own Visit the nearest emergency department or call 911 should the symptoms get wo rse. Referrals: SELF,REFERRAL (PCP) I have reviewed the case, and I agree with, Diagnosis and Plan I have examined patient, & reviewed all documents, & agreed W/ the Diagnosis, and Plan I performed a substantive portion of the visit. I have reviewed and personally made and approve the management plan that is documented in the notes by myself with MARLON/resident. I acknowledged full responsibility for the patient's management plan. BHARATH MACIAS MD Jul 04, 2024 04:33 CATERINA FRANCO DO Jul 04, 2024 06:08
[2024-07-04 04:49] LABS: BASOPHILS # (AUTO) 0.07 K/uL (0.00-0.20); BASOPHILS % (AUTO) 0.7 % (0.0-5.0); EOSINOPHILS # (AUTO) 0.57 K/uL (0.00-0.70); EOSINOPHILS % (AUTO) 5.5 % (0.0-8.0); HEMATOCRIT 47.1 % (42-54); IMMATURE GRANULOCYTE ABSOLUTE 0.05 K/uL (0-1); LYMPHOCYTES % (AUTO) 19.1 % (21.0-51.0); MEAN CORPUSCULAR HEMOGLOBIN 29.1 pg (27.0-33.0); MEAN CORPUSCULAR HGB CONC 33.3 g/dL (32.0-36.0); MEAN CORPUSCULAR VOLUME 87.2 fL (80-100); MONOCYTES # (AUTO) 0.6 K/uL (0.1-1.0); MONOCYTES % (AUTO) 6.2 % (3.0-13.0); NEUTROPHILS # (AUTO) 7.1 K/uL (1.8-7.7); PLATELET COUNT (AUTO) 288 K/uL (130-400); RED CELL DISTRIBUTION WIDTH 12.2 % (11.0-15.5); WHITE BLOOD COUNT (AUTO) 10.4 K/uL (4.8-10.8)
[2024-07-04 05:12] LABS: CREATININE 0.9 mg/dL (0.5-1.3); POTASSIUM 3.8 mmol/L (3.5-5.1)
[2024-07-04 05:39] VITALS: BP 119/83; PULSE 87; RESP 12; TEMP 98.5; O2SAT 98
== END 2024-07-04 05:51 | disposition home or self-care (01) ==
LOC: EDH 04:12
DX: E16.2 Hypoglycemia, unspecified (principal); F41.9 Anxiety disorder, unspecified; Z79.899 Other long term (current) drug therapy
CPT/HCPCS: 36415; 80048; 82948; 84484; 85025; 99283

== ENCOUNTER 2024-07-18 17:04 | Emergency (ER) | payer BC ==
[~2024-07-18] VITALS: Ht 165.1 cm; Wt 81.6 kg
--- NOTE | 2024-07-18 17:29 | ERN ---
ED Note History of Present Illness Stated Complaint: DIZZINESS Chief Complaint: Dizzy/Light Headed Time Seen by MD: 17:05 Time Seen by Midlevel: 17:05 Dictation: The patient is a 19-year-old with a history of hypoglycemia who presents to the emergency department with complaints of dizziness, weakness while at work about an hour prior to arrival. Patient reports he has had this episodes in the past. Reports he felt the symptoms and had some pizza in his sprite. When EMS picked up patient blood glucose was in the 90s. Patient denies any falls or head trauma. Reports some nausea but no vomiting. No other complaints reported. Allergies: Coded Allergies: No Known Drug Allergies (Unverified Allergy, Unknown, 10/26/19) Home Meds Active Scripts Pantoprazole Sodium (Protonix) 40 Mg Ectab, 1 TAB PO DAILY for 30 Days, #30 TAB 0 Refills Prov:HAYDER HE MD 05/18/24 Famotidine (Pepcid) 20 Mg Tablet, 20 MG PO DAILY for 5 Days, #5 TAB Prov:RAMON SAN 02/16/24 Ondansetron (Ondansetron Odt) 4 Mg Tab.rapdis, 4 MG PO BID for 7 Days, #14 TAB Prov:RAMON SAN 02/16/24 Hydroxyzine HCl (Hydroxyzine HCl) 25 Mg Tablet, 25 MG PO BID for anxiety, #15 TAB Prov:HERMELINDA PATEL 11/24/22 Past Medical History Past Medical History: No Pertinent History Surgical History: Other Surgical History Other: R SHOULDER CYST REMOVAL. Social History: ETOH Review of System Dictation Constitutional: Negative for fever,chills, and weight loss Eyes: Negative for injury, pain,redness, and discharge ENT: Negative for injury,pain or swelling Cardiovascular: Negative for chest pain, palpitations, and edema Respiratory: Negative for shortness of breath, cough, and wheezing, Abdomen/GI: Negative for abdominal pain, vomiting, diarrhea, and constipation positive for nausea Back: Negative for injury and pain : Negative for injury, bleeding and discharge MS/Extremity: Negative for injury and deformity Skin: Negative for rash, and discoloration Neuro: Negative for headache, numbness, tingling, and seizure positive for dizziness, weakness, Psych: Negative for suicide ideation, homicidal ideation, and hallucinations Initial Vital Sign VS Vital Signs Date Time Temp Pulse Resp B/P (MAP) Pulse Ox O2 Delivery O2 Flow Rate FiO2 07/18/24 17:05 97.9 91 16 117/77 98 Room Air 0 Physical Exam Dictation Vital Signs reviewed General Appearance: Alert, oriented x 3, no acute distress, well developed, nourished. Head and Face: non-traumatic. Eyes: PERRL, pink conjunctivas, eyelid no trauma, anterior chamber with arcus senilis. Ears: Pinnas intact and no signs of trauma or erythema ear canals clear and no discharge TM no erythema Nose: No discharge, no bleeding. Oropharynx: Mouth normal, tongue pink. pharynx clear,no erythema, tonsils no exudates, no abscesses noted, mucous membrane moist Neck: Supple, non-tender, no thyromegaly, no masses, no JVD, no bruits Breast:Deferred Chest:No tenderness, no crepitus, no paradoxical movement, no retractions Lungs:Clear, well-ventilated, symmetric, no rales, no wheezing, no rhonchi, no stridor, good breath sounds bilaterally Heart: Regular rate, regular rhythm, no murmur, no gallops Vascular: no peripheral edema, Abdomen: Soft, positive bowel sounds, nondistended, no guarding, nontender, no rebound, no masses no hepatomegaly, no splenomegaly, no Ngo's sign, no hernias. Rectal: Deferred Genital: Deferred Neurological: Normal speech, motor function intact, sensory function intact , upper extremities equal in strength, lower extremities equal in strength, steady gait Musculoskeletal: Neck nontender, full range of motion, back nontender, full range of motion, Extremities: nontender, full range of motion Skin: Color pink, dry, no turgor, no rash, no lacerations, no abrasions, no contusions. Lymphatic: Deferred Results (Laboratory/Radiology) Laboratory/Radiology Laboratory Tests Test 07/18/24 17:40 07/18/24 18:34 White Blood Count 7.2 K/uL (4.8-10.8) Red Blood Count 5.21 MIL/uL (4.50-6.20) Hemoglobin 15.1 g/dL (14.0-18.0) Hematocrit 45.5 % (42-54) Mean Corpuscular Volume 87.3 fL (80-100) Mean Corpuscular Hemoglobin 29.0 pg (27.0-33.0) Mean Corpuscular Hemoglobin Concent 33.2 g/dL (32.0-36.0) Red Cell Distribution Width 12.4 % (11.0-15.5) Platelet Count 302 K/uL (130-400) Mean Platelet Volume 10.4 fL (7.5-10.5) Immature Granulocyte % (Auto) 0.4 % (0-1) Neutrophils (%) (Auto) 70.4 % (40.0-77.0) Lymphocytes (%) (Auto) 22.1 % (21.0-51.0) Monocytes (%) (Auto) 4.2 % (3.0-13.0) Eosinophils (%) (Auto) 1.9 % (0.0-8.0) Basophils (%) (Auto) 1.0 % (0.0-5.0) Neutrophils # (Auto) 5.1 K/uL (1.8-7.7) Lymphocytes # (Auto) 1.6 K/uL (1.0-4.8) Monocytes # (Auto) 0.3 K/uL (0.1-1.0) Eosinophils # (Auto) 0.14 K/uL (0.00-0.70) Basophils # (Auto) 0.07 K/uL (0.00-0.20) Absolute Immature Granulocyte (auto 0.03 K/uL (0-1) Nucleated Red Blood Cells 0.0 % (0.0-0.19) Sodium Level 138 mmol/L (136-145) Potassium Level 4.2 mmol/L (3.5-5.1) Chloride Level 101 mmol/L (101-111) Carbon Dioxide Level 33 mmol/L (21-32) H Blood Urea Nitrogen 13 mg/dL (7-18) Creatinine 0.9 mg/dL (0.5-1.3) Glomerular Filtration Rate Calc 125 mL/min (>90) Random Glucose 85 mg/dL (70-105) Total Calcium 9.4 mg/dL (8.5-10.1) Troponin I High Sensitivity < 4 ng/L (4-75) L Whole Blood Glucose 79 MG/DL (70-110) Labs Reviewed?: Yes EKG: (+) rhythm (Sinus rhythm) EKG Comment: Date:07/18/2024 Time:1737 Ventricular rate:87 MO interval:136 QRS duration:82 QT/QTc:414 EKG interpretation: Sinus rhythm Reviewed by ED Attending no STEMI ED Course ED Course Orders Procedure Category Date Status Time Cbc With Differential LAB 07/18/24 Complete 17:19 Troponin I High LAB 07/18/24 Complete Sensitivity 17:19 12 Lead Ekg Tracing- EKG 07/18/24 Complete Technical 17:19 Basic Metabolic Panel LAB 07/18/24 Complete 17:19 Ondansetron Odt 4mg PHA 07/18/24 In Process Tab (Zofran 4mg Odt) 17:30 Bedside Glucose CPOE 07/18/24 Transmitted Fingerstick 18:56 Current Medications Medications (Trade) Dose Ordered Sig/Braulio Route PRN Reason Start Time Stop Time Status Last Admin Dose Admin Ondansetron HCl (zoFRAN 4MG ODT) 4 mg ONCE SL 07/18/24 17:30 07/18/24 22:30 07/18/24 17:36 Vital Signs Date Time Temp Pulse Resp B/P (MAP) Pulse Ox O2 Delivery O2 Flow Rate FiO2 07/18/24 17:05 97.9 91 16 117/77 98 Room Air 0 Medical Decision Making MDM The patient is a 19-year-old with a history of hypoglycemia who presents to the emergency department with complaints of dizziness, weakness while at work about an hour prior to arrival. Patient reports he has had this episodes in the past. Reports he felt the symptoms and had some pizza in his sprite. When EMS picked up patient blood glucose was in the 90s. Patient denies any falls or head trauma. Reports some nausea but no vomiting. No other complaints reported. CBC showed no leukocytosis, no anemia, chemistry showed no electrolyte imbal ance, glucose of 80, trend down to 79. Patient able to tolerate oral intake. Patient instructed to follow up with primary doctor. Patient has symptoms related to hypoglycemia episode at work. Patient no acute distress, nontoxic appearance. Neurologically intact. No need for further imaging at this time. Vital signs stable. Differential diagnosis: Dehydration, hypoglycemia, electrolyte imbalance Need for hospitalization: Patient does not meet criteria for hospitalization. There are no social concerns with this patient. DX & DISP Disposition: Discharge Departure Impression: Primary Impression: Dizziness Additional Impression: History of hypoglycemia Condition: Stable Additional Instructions: Please follow up with your primary doctor in 1-2 days. If symptoms worsen please return to ER. FOLLOW-UP WITH PRIMARY CARE PROVIDER IN 1 TO 2 DAYS. TAKE MEDICATIONS DIRECTED HERE IN THE EMERGENCY ROOM. OKAY TO CONTINUE HOME MEDICATIONS UNLESS OTHERWISE DISCUSSED DURING YOUR VISIT IN THE EMERGENCY ROOM TODAY. RETURN TO YOUR NEAREST EMERGENCY ROOM IF SYMPTOMS WORSEN OR IF THERE IS NO IMPROVEMENT. CALL 911 IF YOU NEED IMMEDIATE ASSISTANCE. TAKE TYLENOL OR MOTRIN [id number] NEEDED AND IF NO CONTRAINDICATIONS ARE PRESENT. INCREASE ORAL HYDRATION. A WOUND CULTURE OR URINE CULTURE WAS ORDERED HERE IN THE EMERGENCY ROOM DEPARTMENT PLEASE FOLLOW-UP WITH PRIMARY CARE PROVIDER AND ADVISE THEM TO GET REPEAT PORTS FROM OUR FACILITY. IF YOU HAD ANY DONNA WRAP/SPLINTS THAT WERE APPLIED HERE, PLEASE DO NOT REMOVE THEM UNTIL YOU SEE YOUR PRIMARY CARE OR SPECIALTY. Referrals: JAMES WALDRON (PCP) Time of Disposition: 19:31 I have reviewed the case, and I agree with, Diagnosis and Plan TETE COVARRUBIAS Jul 18, 2024 17:29
[2024-07-18] MEDS: ondanSETRON ODT 4MG TAB SL SCH (17:36)
--- NOTE | 2024-07-18 17:45 | EKG ---
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
[2024-07-18 17:53] LABS: BASOPHILS # (AUTO) 0.07 K/uL (0.00-0.20); EOSINOPHILS # (AUTO) 0.14 K/uL (0.00-0.70); EOSINOPHILS % (AUTO) 1.9 % (0.0-8.0); HEMATOCRIT 45.5 % (42-54); IMMATURE GRANULOCYTE ABSOLUTE 0.03 K/uL (0-1); LYMPHOCYTES # (AUTO) 1.6 K/uL (1.0-4.8); LYMPHOCYTES % (AUTO) 22.1 % (21.0-51.0); MEAN CORPUSCULAR HGB CONC 33.2 g/dL (32.0-36.0); MEAN CORPUSCULAR VOLUME 87.3 fL (80-100); MONOCYTES # (AUTO) 0.3 K/uL (0.1-1.0); MONOCYTES % (AUTO) 4.2 % (3.0-13.0); NEUTROPHILS # (AUTO) 5.1 K/uL (1.8-7.7); NEUTROPHILS % (AUTO) 70.4 % (40.0-77.0); PLATELET COUNT (AUTO) 302 K/uL (130-400); RED BLOOD CELL COUNT(AUTO) 5.21 MIL/uL (4.50-6.20); RED CELL DISTRIBUTION WIDTH 12.4 % (11.0-15.5); WHITE BLOOD COUNT (AUTO) 7.2 K/uL (4.8-10.8)
[2024-07-18 18:01] LABS: CREATININE 0.9 mg/dL (0.5-1.3); POTASSIUM 4.2 mmol/L (3.5-5.1)
[2024-07-18 19:43] VITALS: BP 120/78; PULSE 88; RESP 18; TEMP 98.5; O2SAT 99
== END 2024-07-18 19:44 | disposition home or self-care (01) ==
LOC: EDH 17:04
DX: R42 Dizziness and giddiness (principal); R53.1 Weakness; R11.0 Nausea; Z79.899 Other long term (current) drug therapy
CPT/HCPCS: 36415; 80048; 82948; 84484; 85025; 93005; 99284

== ENCOUNTER 2024-09-26 16:32 | Emergency (ER) | payer BC ==
[~2024-09-26] VITALS: Ht 165.1 cm; Wt 85.3 kg
--- NOTE | 2024-09-26 16:42 | ERN ---
ED Note History of Present Illness Stated Complaint: ABDOMINAL PAIN Chief Complaint: Abdominal Pain Time Seen by MD: 16:33 Time Seen by Midlevel: 16:35 Dictation: Mr. Torres is a 19 year old male with history of anxiety, GERD, and hypoglycemia who was transported via EMS to the Emergency Department this afternoon for evaluation of dysuria. He reports 48 hours of intermittent diffuse abdominal pain accompanied by nausea with bilious emesis x 2 (last night). He states he has been experiencing frequent urination with burning, dizziness, and low blood glucose readings. He states yesterday his blood sugar dropped to 60. He denies use of alcohol or recreational drugs. He denies having fever, chills, shortness of breath, cough, chest pain, palpitations, e kamini, hematemesis, constipation, diarrhea, melena, hematochezia, hematuria, flank pain, or headache. Paramedics noted blood glucose 85. He denies having fever, chills, shortness of breath, cough, chest pain, palpitations, edema, vomiting, hematemesis, constipation, diarrhea, melena, hematochezia, painful urination, hematuria, difficulty speaking, difficulty swallowing, vision francisco nges, or headache. Allergies: Coded Allergies: No Known Drug Allergies (Unverified Allergy, Unknown, 10/26/19) Home Meds Active Scripts Pantoprazole Sodium (Protonix) 40 Mg Ectab, 1 TAB PO DAILY for 30 Days, #30 TAB 0 Refills Prov:HAYDER HE MD 05/18/24 Famotidine (Pepcid) 20 Mg Tablet, 20 MG PO DAILY for 5 Days, #5 TAB Prov:RAMON SAN 02/16/24 Ondansetron (Ondansetron Odt) 4 Mg Tab.rapdis, 4 MG PO BID for 7 Days, #14 TAB Prov:RAMON SAN 02/16/24 Hydroxyzine HCl (Hydroxyzine HCl) 25 Mg Tablet, 25 MG PO BID for anxiety, #15 TAB Prov:HERMELINDA PATEL 11/24/22 Past Medical History Past Medical History: Anxiety, GERD Surgical History: Other Surgical History Other: R SHOULDER CYST REMOVAL. PSYCH History: anxiety Social History: ETOH RN Note Reviewed/Agreed w/PFSH: Yes Review of System Dictation REVIEW OF SYSTEMS: CONSTITUTIONAL: Patient denies fevers, chills, sweats and weight changes. Reports fatigue and general weakness. EYES: Patient denies any visual symptoms. EARS, NOSE, AND THROAT: No difficulties with hearing. No symptoms of rhinitis or sore throat. CARDIOVASCULAR: Patient denies chest pains, palpitations, orthopnea and paroxysmal nocturnal dyspnea. RESPIRATORY: No dyspnea on exertion, no wheezing or cough. GI: No diarrhea, constipation, hematochezia or melena.Reports abdominal pain with nausea. He states he had two episodes of vomiting which he described as bright yellow and "sour" : No urinary hesitancy or dribbling. No nocturia. No hematuria. No abnormal urethral discharge. Denies flank pain. Reports frequent urination. Reports burning with urination. MUSCULOSKELETAL: No myalgias or arthralgias. NEUROLOGIC: No chronic headaches, no seizures. Patient denies numbness, tingling or weakness. PSYCHIATRIC: Patient denies problems with mood disturbance. No problems with anxiety. ENDOCRINE: No excessive urination or excessive thirst. Reports low blood glucose readings. States blood sugar dropped to 60 yesterday. DERMATOLOGIC: Patient denies any rashes or skin changes. Initial Vital Sign VS Vital Signs Date Time Temp Pulse Resp B/P (MAP) Pulse Ox O2 Delivery O2 Flow Rate FiO2 09/26/24 16:33 97.9 90 16 126/80 99 Room Air* 0 21 Physical Exam Dictation Vital signs: Reviewed. Afebrile. Constitutional: No acute distress. Non-toxic appearing. Significant other at bedside. Head/Face: Normocephalic, atraumatic. Eyes: Periorbital areas with no swelling, redness, or edema. Lids and lashes are normal. Conjunctival injection is absent. Sclera anicteric. Pupils equal, round, reactive to light. ENT: Pinnas intact and no signs of trauma or erythema. Ear canals clear and no discharge. TMs no erythema. No nasal discharge or bleeding noted. Oropharynx with no exudate, redness, swelling, masses, exudates, or evidence of obstruction. Uvula midline. Mucous membranes dry. Neck: Trachea midline, no masses palpated, and no cervical lymphadenopathy. No swelling. Supple, full range of motion. Chest/Axilla: No tenderness, no crepitus, no paradoxical movement, no retractions. Cardiovascular: Regular rate, regular rhythm, no murmur, no gallops. Symmetric pulses. No peripheral edema. Respiratory: Respirations even and unlabored. Lung sounds clear; no wheezes, rales or rhonchi. Room air spo2 99% Gastrointestinal: Obese. No distention is appreciated. Bowel sounds are normal. No mass or organomegaly . There is no tenderness. No rebound. No rigidity. No voluntary or involuntary guarding. No Ngo's sign. : Urine is pale yellow. Negative CVA tenderness bilaterally. Neurological: Normal speech, gross motor function intact, gross sensory function intact. No focal weakness/Paresthesia. Musculoskeletal/Extremities: All extremities have full range of motion, no pain or tenderness on palpation. Symmetric pulses. Integumentary: Intact. Skin is normal color, warm and dry. Cap refill less than 2 seconds. Results (Laboratory/Radiology) Laboratory/Radiology Laboratory Tests Test 09/26/24 16:35 09/26/24 16:47 09/26/24 16:50 Whole Blood Glucose 84 MG/DL (70-110) White Blood Count 5.8 K/uL (4.8-10.8) Red Blood Count 5.22 MIL/uL (4.50-6.20) Hemoglobin 15.4 g/dL (14.0-18.0) Hematocrit 45.5 % (42-54) Mean Corpuscular Volume 87.2 fL (80-100) Mean Corpuscular Hemoglobin 29.5 pg (27.0-33.0) Mean Corpuscular Hemoglobin Concent 33.8 g/dL (32.0-36.0) Red Cell Distribution Width 12.4 % (11.0-15.5) Platelet Count 271 K/uL (130-400) Mean Platelet Volume 10.3 fL (7.5-10.5) Immature Granulocyte % (Auto) 0.7 % (0-1) Neutrophils (%) (Auto) 61.6 % (40.0-77.0) Lymphocytes (%) (Auto) 28.3 % (21.0-51.0) Monocytes (%) (Auto) 6.6 % (3.0-13.0) Eosinophils (%) (Auto) 1.9 % (0.0-8.0) Basophils (%) (Auto) 0.9 % (0.0-5.0) Neutrophils # (Auto) 3.6 K/uL (1.8-7.7) Lymphocytes # (Auto) 1.6 K/uL (1.0-4.8) Monocytes # (Auto) 0.4 K/uL (0.1-1.0) Eosinophils # (Auto) 0.11 K/uL (0.00-0.70) Basophils # (Auto) 0.05 K/uL (0.00-0.20) Absolute Immature Granulocyte (auto 0.04 K/uL (0-1) Nucleated Red Blood Cells 0.0 % (0.0-0.19) Sodium Level 141 mmol/L (136-145) Potassium Level 4.5 mmol/L (3.5-5.1) Chloride Level 104 mmol/L (101-111) Carbon Dioxide Level 28 mmol/L (21-32) Blood Urea Nitrogen 10 mg/dL (7-18) Creatinine 0.8 mg/dL (0.5-1.3) Glomerular Filtration Rate Calc 129 mL/min (>90) Random Glucose 86 mg/dL (70-105) Total Calcium 8.8 mg/dL (8.5-10.1) Lipase 16 U/L (16-77) Urine Color LIGHT-YELLOW (YELLOW) Urine Appearance CLEAR (CLEAR) Urine pH 7.0 (5.0-8.0) Urine Specific [place] 1.016 (1.001-1.031) Urine Protein NEGATIVE mg/dL (NEGATIVE) Urine Glucose (UA) NEGATIVE mg/dL (NEGATIVE) Urine Ketones NEGATIVE mg/dL (NEGATIVE) Urine Occult Blood NEGATIVE (NEGATIVE) Urine Nitrate NEGATIVE (NEGATIVE) Urine Bilirubin NEGATIVE mg/dL (NEGATIVE) Urine Urobilinogen 0.2 mg/dL (0.2-1.0) Urine Leukocyte Esterase NEGATIVE Andre/uL Labs Reviewed?: Yes ED Course ED Course Orders Procedure Category Date Status Time Urinalysis Profile LAB 09/26/24 Complete 16:34 Basic Metabolic Panel LAB 09/26/24 Complete 16:34 Cbc With Differential LAB 09/26/24 Complete 16:34 Ondansetron Odt 4mg PHA 09/26/24 In Process Tab (Zofran 4mg Odt) 17:00 0.9%Nacl 1000ml (Ns PHA 09/26/24 In Process 1000ml) 17:00 Lipase LAB 09/26/24 Complete 16:47 Current Medications Medications (Trade) Dose Ordered Sig/Braulio Route PRN Reason Start Time Stop Time Status Last Admin Dose Admin Ondansetron HCl (zoFRAN 4MG ODT) 4 mg ONCE SL 09/26/24 17:00 09/26/24 21:00 09/26/24 16:56 Sodium Chloride 1,000 ml @ 0 mls/hr ONCE IV 09/26/24 17:00 09/27/24 16:59 09/26/24 17:23 Vital Signs Date Time Temp Pulse Resp B/P (MAP) Pulse Ox O2 Delivery O2 Flow Rate FiO2 09/26/24 16:34 97.9 90 16 126/80 98 Room Air 0 09/26/24 16:33 97.9 90 16 126/80 99 Room Air* 0 21 Uneventful ED course. Vital signs remained stable; afebrile and normotensive room air SpO2 98 99%. Laboratory findings as noted below. No elevation of WBCs. No electrolyte derangement. UA is clear. Glucose level 84. He received dose Zofran ODT as well as NS 1000 mL IV as bolus. Findings were discussed with patient and all questions were answered. he was instructed to follow up with his PCP for recurrent hypoglycemic episodes. Medical Decision Making MDM MDM: Differential diagnosis: hypoglycemia/electrolyte derangement, dehydration, UTI, gastritis Rationale: Tests considered and ordered secondary to shared decision making include: LAB, EKG Previous outside records reviewed: Old ER visits. Risk of complication and/or morbidity or mortality of patient management: None Medications-Per medication reconciliation Need for hospitalization: Patient does not meet criteria for hospitalization. Need for emergency major/minor surgery: No There are no social concerns with this patient. Prescription drug management: pepcid, zofran Prescriptions will include symptomatic care Patient's prior external medical records from other ER visits were reviewed by me as indicated. Prior testing and results from previous visits were reviewed. Prior tests were taken into account with medical decision making and resource utilization, independent historian/historians were used to obtain complete medical history. I independently interpreted the test that were performed, results were reviewed by me and considered findings on radiology if ordered. Medical management and examination interpretation discussions were had by me with other qualified healthcare professionals as indicated for the patient's care. DX & DISP Disposition: Discharge Departure Impression: Primary Impression: Hypoglycemia Additional Impressions: Nausea, Gastritis Condition: Stable Scripts Famotidine (Famotidine) 20 Mg Tablet 1 TAB PO BID for 30 Days, #60 TAB 0 Refills Prov: MEGA TORRES NP 09/26/24 Ondansetron (Ondansetron Odt) 4 Mg Tab.rapdis 4 MG PO Q6HPRN PRN for nausea, #15 TAB 0 Refills Prov: MEGA TORRES NP 09/26/24 Additional Instructions: Continue to monitor for signs of hypoglycemia: Shakiness, sweating, weakness, dizziness, fainting, blurred vision, hunger, and headache. Avoid skipping meals or strenuous exercise without proper nutrition. Avoid alcohol (especially on an empty stomach). Your meals should include a balanced of protein, fiber, and healthy carbs. Keeps an actually crackers, fruit juice and granola bars on hand. He a log of symptoms and blood glucose readings. Follow up with your primary care provider early next week for follow up you may need additional blood testing such as glucose tolerance test, A1c and/or referral to en docrinologist. Return to the emergency department for worsening of symptoms or concerns. Referrals: JAMES WALDRON (PCP) Time of Disposition: 17:33 MEGA TORRES NP September 26, 2024 16:42
[2024-09-26 16:53] LABS: BASOPHILS # (AUTO) 0.05 K/uL (0.00-0.20); BASOPHILS % (AUTO) 0.9 % (0.0-5.0); EOSINOPHILS # (AUTO) 0.11 K/uL (0.00-0.70); EOSINOPHILS % (AUTO) 1.9 % (0.0-8.0); HEMATOCRIT 45.5 % (42-54); IMMATURE GRANULOCYTE ABSOLUTE 0.04 K/uL (0-1); LYMPHOCYTES # (AUTO) 1.6 K/uL (1.0-4.8); LYMPHOCYTES % (AUTO) 28.3 % (21.0-51.0); MEAN CORPUSCULAR HEMOGLOBIN 29.5 pg (27.0-33.0); MEAN CORPUSCULAR HGB CONC 33.8 g/dL (32.0-36.0); MEAN CORPUSCULAR VOLUME 87.2 fL (80-100); MONOCYTES # (AUTO) 0.4 K/uL (0.1-1.0); MONOCYTES % (AUTO) 6.6 % (3.0-13.0); NEUTROPHILS # (AUTO) 3.6 K/uL (1.8-7.7); NEUTROPHILS % (AUTO) 61.6 % (40.0-77.0); PLATELET COUNT (AUTO) 271 K/uL (130-400); RED BLOOD CELL COUNT(AUTO) 5.22 MIL/uL (4.50-6.20); RED CELL DISTRIBUTION WIDTH 12.4 % (11.0-15.5); WHITE BLOOD COUNT (AUTO) 5.8 K/uL (4.8-10.8)
[2024-09-26] MEDS: ondanSETRON ODT 4MG TAB SL SCH (16:56)
[2024-09-26 17:05] LABS: ADD UA MICROSCOPIC NO; APPEARANCE,URINE CLEAR (CLEAR); BILIRUBIN,URINE NEGATIVE (NEGATIVE); COLOR,URINE LIGHT-YELLOW (YELLOW); GLUCOSE, URINE (UA) NEGATIVE (NEGATIVE); KETONES,URINE NEGATIVE (NEGATIVE); LEUKOCYTE ESTERASE ,URINE NEGATIVE Leu/uL (NEGATIVE); NITRATE,URINE NEGATIVE (NEGATIVE); OCCULT BLOOD,URINE NEGATIVE (NEGATIVE); PROTEIN,URINE NEGATIVE (NEGATIVE); UROBILINOGEN,URINE 0.2 mg/dL (0.2-1.0)
[2024-09-26 17:05] LABS: CREATININE 0.8 mg/dL (0.5-1.3); POTASSIUM 4.5 mmol/L (3.5-5.1)
[2024-09-26] MEDS: 0.9%NACL 1000ML 1,000 ML IV SCH (17:23)
[2024-09-26] MEDS ORDERED: ONDA-243 PO (17:32)
[2024-09-26] MEDS ORDERED: FAMO20TA8 PO (17:32)
[2024-09-26 17:36] VITALS: BP 122/74; PULSE 78; RESP 16; TEMP 97.9; O2SAT 98
--- NOTE | 2024-09-26 17:37 | NUR ---
WAITING FOR FLUIDS TO FINISH BEFORE D/C
== END 2024-09-26 17:56 | disposition home or self-care (01) ==
LOC: EDH 16:32
DX: E16.2 Hypoglycemia, unspecified (principal); R11.0 Nausea; K29.70 Gastritis, unspecified, without bleeding; F41.9 Anxiety disorder, unspecified; Z79.899 Other long term (current) drug therapy
CPT/HCPCS: 99283; 96360; 80048; 83690; 85025; 82948; 81003; 36415; J7030

== ENCOUNTER 2024-11-04 01:53 | Emergency (ER) | payer BC ==
[~2024-11-04] VITALS: Ht 165.1 cm; Wt 81.6 kg
[~2024-11-04 01:53] MED LIST changes: +FAMO20TA8 PO
--- NOTE | 2024-11-04 01:59 | NUR ---
PT PLACED IN ED 14. PT CARE ASSUMED.
--- NOTE | 2024-11-04 02:04 | ERN ---
ED Note History of Present Illness Stated Complaint: LLQ ABDOMINAL PAIN Chief Complaint: Abdominal Pain Time Seen by MD: 02:09 Time Seen by Midlevel: 02:00 Dictation: Mr. Torres is a 19 year old male with history of anxiety and GERD who was transported via EMS to the Emergency Department this morning for evaluation of abdominal pain. He reports 3 days of left lower quadrant abdominal pain x 3 days. He states that he feels like his stomach is "bubbling" and has had several episodes of diarrhea. He states he feels like he is dehydrated. He states that that he felt dizzy and thought he was going to faint so he called 911. He Denies fever, chills, shortness of breath, cough, chest pain, palpitations, edema, nausea, vomiting, hematemesis, constipation, melena, hematochezia, dysuria, headache, or focal weakness/paresthesia Allergies: Coded Allergies: No Known Drug Allergies (Unverified Allergy, Unknown, 10/26/19) Home Meds Active Scripts Dicyclomine HCl (Bentyl) 20 Mg Tab, 20 MG PO q12 hours PRN for abdominal pain/cramping, #10 TAB 0 Refills Prov:MEGA TORRES NP 11/04/24 Ondansetron (Ondansetron Odt) 8 Mg Tab.rapdis, 4 MG PO Q6H for nausea/vomiting for 3 Days, #12 TAB 0 Refills Prov:MEGA TORRES NP 11/04/24 Famotidine (Famotidine) 20 Mg Tablet, 1 TAB PO BID for 30 Days, #60 TAB 0 Refills Prov:MEGA TORRES NP 09/26/24 Ondansetron (Ondansetron Odt) 4 Mg Tab.rapdis, 4 MG PO Q6HPRN PRN for nausea, #15 TAB 0 Refills Prov:MEGA TORRES NP 09/26/24 Pantoprazole Sodium (Protonix) 40 Mg Ectab, 1 TAB PO DAILY for 30 Days, #30 TAB 0 Refills Prov:HAYDER HE MD 05/18/24 Famotidine (Pepcid) 20 Mg Tablet, 20 MG PO DAILY for 5 Days, #5 TAB Prov:RAMON SAN 02/16/24 Ondansetron (Ondansetron Odt) 4 Mg Tab.rapdis, 4 MG PO BID for 7 Days, #14 TAB Prov:RAMON SAN 02/16/24 Hydroxyzine HCl (Hydroxyzine HCl) 25 Mg Tablet, 25 MG PO BID for anxiety, #15 TAB Prov:HERMELINDA PATEL 11/24/22 Past Medical History Past Medical History: Anxiety, GERD Surgical History: Other Surgical History Other: R SHOULDER CYST REMOVAL. Social History: ETOH RN Note Reviewed/Agreed w/PFSH: Yes Review of System Dictation REVIEW OF SYSTEMS: CONSTITUTIONAL: Patient denies fevers, chills, sweats and weight changes. Reports fatigue and general weakness. EYES: Patient denies any visual symptoms. EARS, NOSE, AND THROAT: No difficulties with hearing. No symptoms of rhinitis or sore throat. CARDIOVASCULAR: Patient denies chest pains, palpitations, orthopnea and paroxysmal nocturnal dyspnea. RESPIRATORY: No dyspnea on exertion, no wheezing or cough. GI: No nausea, vomiting, constipation, hematochezia or melena. Reports left- sided abdominal pain x3 days with diarrhea. He states he feels like his stomach is bubbling. : No urinary hesitancy or dribbling. No nocturia or urinary frequency. No abnormal urethral discharge. MUSCULOSKELETAL: No myalgias or arthralgias. NEUROLOGIC: No chronic headaches, no seizures. Patient denies numbness, tingling or weakness. States he became dizzy and thought he was going to pass out PSYCHIATRIC: Patient denies problems with mood disturbance. No problems with anxiety. ENDOCRINE: No excessive urination or excessive thirst. DERMATOLOGIC: Patient denies any rashes or skin changes. Initial Vital Sign VS Vital Signs Date Time Temp Pulse Resp B/P (MAP) Pulse Ox O2 Delivery O2 Flow Rate FiO2 11/04/24 02:00 98.8 80 17 122/73 98 Room Air* 0 21 Physical Exam Dictation Vital signs: Reviewed. Afebrile Constitutional: No acute distress. Non-toxic appearing. Unkempt. Slightly anxious Head/Face: Normocephalic, atraumatic. Eyes: Periorbital areas with no swelling, redness, or edema. Lids and lashes are normal. Conjunctival injection is absent. Sclera anicteric. Pupils equal, round, reactive to light. ENT: Pinnas intact and no signs of trauma or erythema. Ear canals clear and no discharge. TMs no erythema. No nasal discharge or bleeding noted. Oropharynx with no exudate, redness, swelling, masses, exudates, or evidence of obstruction. Uvula midline. Mucous membranes dry Neck: Trachea midline, no masses palpated, and no cervical lymphadenopathy. No swelling. Supple, full range of motion. Chest/Axilla: No tenderness, no crepitus, no paradoxical movement, no retractions. Cardiovascular: Regular rate, regular rhythm, no murmur, no gallops. Symmetric pulses. No peripheral edema. Normotensive. Respiratory: Respirations even and unlabored. Lung sounds clear; no wheezes, rales or rhonchi. Room air spo2 99%. Gastrointestinal: Inspection is normal. No distention is appreciated. Bowel sounds are normal. No mass or organomegaly . There is no tenderness upon light or deep palpation.. No rebound. No rigidity. No voluntary or involuntary guarding. No Ngo's sign. : negative CVA tenderness bilaterally. Neurological: Normal speech, gross motor function intact, gross sensory function intact. No focal weakness/Paresthesia. Musculoskeletal/Extremities: All extremities have full range of motion, no pain or tenderness on palpation. Symmetric pulses. Integumentary: Intact. Skin is normal color, warm and dry. Cap refill less than 2 seconds. Results (Laboratory/Radiology) Laboratory/Radiology Laboratory Tests Test 11/04/24 02:04 White Blood Count 7.5 K/uL (4.8-10.8) Red Blood Count 4.98 MIL/uL (4.50-6.20) Hemoglobin 14.6 g/dL (14.0-18.0) Hematocrit 42.1 % (42-54) Mean Corpuscular Volume 84.5 fL (80-100) Mean Corpuscular Hemoglobin 29.3 pg (27.0-33.0) Mean Corpuscular Hemoglobin Concent 34.7 g/dL (32.0-36.0) Red Cell Distribution Width 12.5 % (11.0-15.5) Platelet Count 278 K/uL (130-400) Mean Platelet Volume 10.3 fL (7.5-10.5) Immature Granulocyte % (Auto) 0.7 % (0-1) Neutrophils (%) (Auto) 59.6 % (40.0-77.0) Lymphocytes (%) (Auto) 30.1 % (21.0-51.0) Monocytes (%) (Auto) 5.8 % (3.0-13.0) Eosinophils (%) (Auto) 3.1 % (0.0-8.0) Basophils (%) (Auto) 0.7 % (0.0-5.0) Neutrophils # (Auto) 4.5 K/uL (1.8-7.7) Lymphocytes # (Auto) 2.3 K/uL (1.0-4.8) Monocytes # (Auto) 0.4 K/uL (0.1-1.0) Eosinophils # (Auto) 0.23 K/uL (0.00-0.70) Basophils # (Auto) 0.05 K/uL (0.00-0.20) Absolute Immature Granulocyte (auto 0.05 K/uL (0-1) Nucleated Red Blood Cells 0.0 % (0.0-0.19) Sodium Level 139 mmol/L (136-145) Potassium Level 3.7 mmol/L (3.5-5.1) Chloride Level 104 mmol/L (101-111) Carbon Dioxide Level 29 mmol/L (21-32) Blood Urea Nitrogen 9 mg/dL (7-18) Creatinine 0.9 mg/dL (0.5-1.3) Glomerular Filtration Rate Calc 125 mL/min (>90) Random Glucose 100 mg/dL (70-105) Total Calcium 8.8 mg/dL (8.5-10.1) Total Bilirubin 0.2 mg/dL (0.2-1.0) Direct Bilirubin 0.1 mg/dL (0.0-0.3) Aspartate Amino Transf (AST/SGOT) 17 U/L (10-37) Alanine Aminotransferase (ALT/SGPT) 42 U/L (12-78) Alkaline Phosphatase 102 U/L (50-136) Total Protein 7.3 g/dL (6.0-8.3) Albumin 3.6 g/dL (3.5-5.0) Lipase 15 U/L (16-77) L Labs Reviewed?: Yes ED Course ED Course Orders Procedure Category Date Status Time Cbc With Differential LAB 11/04/24 Complete 02:00 Basic Metabolic Panel LAB 11/04/24 Complete 02:00 Hepatic Function Panel LAB 11/04/24 Complete 02:00 Lipase LAB 11/04/24 Complete 02:00 Famotidine 20mg Vial PHA 11/04/24 Complete (Pepcid 20mg Vial) 02:00 Mag/Alum/Simeth 30ml PHA 11/04/24 Complete (Maalox Plus 30ml) 02:00 Dicyclomine Hcl PHA 11/04/24 Complete (Bentyl 10mg/5ml 02:00 Lidocaine Hcl 2% PHA 11/04/24 Complete Viscous (Lidocaine Hcl 02:00 0.9%Nacl 1000ml (Ns PHA 11/04/24 Complete 1000ml) 02:30 Current Medications Medications (Trade) Dose Ordered Sig/Braulio Route PRN Reason Start Time Stop Time Status Last Admin Dose Admin Al Hydroxide/Mg Hydroxide (MAALox PLUS 30ML) 15 ml ONCE ONCE PO 11/04/24 02:00 11/04/24 02:05 DC 11/04/24 02:37 Dicyclomine HCl (Bentyl 10mg/5ml Syrup) 10 mg ONCE ONCE PO 11/04/24 02:00 11/04/24 02:05 DC 11/04/24 02:37 Famotidine (Pepcid 20mg Vial) 20 mg ONCE ONCE IV 11/04/24 02:00 11/04/24 02:05 DC 11/04/24 02:38 Lidocaine HCl (Lidocaine HCl 2% Viscous) 10 ml ONCE ONCE PO 11/04/24 02:00 11/04/24 02:05 DC 11/04/24 02:37 Sodium Chloride 1,000 ml @ 0 mls/hr ONCE ONCE IV 11/04/24 02:30 11/04/24 02:31 DC 11/04/24 02:39 Vital Signs Date Time Temp Pulse Resp B/P (MAP) Pulse Ox O2 Delivery O2 Flow Rate FiO2 11/04/24 03:54 98.1 86 15 113/69 98 Room Air* 0 21 11/04/24 03:00 98.1 79 15 119/74 98 Room Air* 0 21 11/04/24 02:00 98.8 80 17 122/73 98 Room Air* 0 21 Uneventful ED course. Vital signs stable; afebrile and normotensive with room air SpO2 99%. Laboratory findings as noted below. No elevation of WBCs. H&H are stable. No electrolyte derangement. No elevation of LFT or lipase. He received doses Pepcid, GI cocktail, and NS 1000 mL IV as bolus. He has no abdominal distention, bowel sounds are present, and he has no pain with light or deep palpation. He has had no further diarrhea stools. He is t olerating p.o. fluids and ambulating with steady gait. Medical Decision Making MDM MDM: Differential diagnosis: Gastroenteritis, dehydration, electrolyte derangement Rationale: Tests considered and ordered secondary to shared decision making include: Previous outside records reviewed: Old ER visits. Risk of complication and/or morbidity or mortality of patient management: None Medications-Per medication reconciliation Need for hospitalization: Patient does not meet criteria for hospitalization. Need for emergency major/minor surgery: No There are no social concerns with this patient. Prescription drug management: Stephanie Zelaya Prescriptions will include symptomatic care Patient's prior external medical records from other ER visits were reviewed by me as indicated. Prior testing and results from previous visits were reviewed. Prior tests were taken into account with medical decision making and resource utilization, independent historian/historians were used to obtain complete medical history. I independently interpreted the test that were performed, results were reviewed by me and considered findings on radiology if ordered. Medical management and examination interpretation discussions were had by me with other qualified healthcare professionals as indicated for the patient's care. DX & DISP Disposition: Discharge Departure Impression: Primary Impression: Mild dehydration Additional Impression: Gastritis Condition: Stable Scripts Dicyclomine HCl (Bentyl) 20 Mg Tab 20 MG PO q12 hours PRN for abdominal pain/cramping, #10 TAB 0 Refills Prov: MEGA TORRES BARK FITTER 11/04/24 Ondansetron (Ondansetron Odt) 8 Mg Tab.rapdis 4 MG PO Q6H for nausea/vomiting for 3 Days, #12 TAB 0 Refills Prov: MEGA TORRES BARK FITTER 11/04/24 Additional Instructions: You have gastritis, commonly caused by a virus or symptoms bacteria. It leads to inflammation of the stomach and intestine, causing diarrhea, nausea, vomiting, and/or abdominal cramps. Hydration is lopez: Drink plenty of fluids (water, electrolyte drinks a, or broth. Take small, frequent sips of nauseated. Avoid alcohol, caffeine, and sugary or dairy rich drinks. Eat bland foods as tolerated: Rice, toes, bananas, applesauce, and crackers. Avoid spicy, greasy, or high-fiber foods until symptoms resolve. May take Tylenol as needed for fever or pain. May take Zofran ODT every 6-8 hours as needed for nausea. May take Bentyl every 12 hours as needed for abdominal pain/cramping. Return to ER or PCP for signs of dehydration (dry mouth, no urine for 8 hours, or dizziness). Bloody diarrhea or persistent fever, diarrhea lasting greater than three days without improvement. Severe abdominal pain or vomiting that prevents fluid intake. Weakness, confusions or other concerning symptoms. Referrals: JAMES WALDRON (PCP) Time of Disposition: 02:36 MEGA TORRES NP Nov 04, 2024 02:04 CATERINA FRANCO DO Nov 04, 2024 06:56
[2024-11-04 02:14] LABS: BASOPHILS # (AUTO) 0.05 K/uL (0.00-0.20); BASOPHILS % (AUTO) 0.7 % (0.0-5.0); EOSINOPHILS # (AUTO) 0.23 K/uL (0.00-0.70); EOSINOPHILS % (AUTO) 3.1 % (0.0-8.0); HEMATOCRIT 42.1 % (42-54); IMMATURE GRANULOCYTE ABSOLUTE 0.05 K/uL (0-1); LYMPHOCYTES # (AUTO) 2.3 K/uL (1.0-4.8); LYMPHOCYTES % (AUTO) 30.1 % (21.0-51.0); MEAN CORPUSCULAR HEMOGLOBIN 29.3 pg (27.0-33.0); MEAN CORPUSCULAR HGB CONC 34.7 g/dL (32.0-36.0); MEAN CORPUSCULAR VOLUME 84.5 fL (80-100); MONOCYTES # (AUTO) 0.4 K/uL (0.1-1.0); MONOCYTES % (AUTO) 5.8 % (3.0-13.0); NEUTROPHILS # (AUTO) 4.5 K/uL (1.8-7.7); NEUTROPHILS % (AUTO) 59.6 % (40.0-77.0); PLATELET COUNT (AUTO) 278 K/uL (130-400); RED BLOOD CELL COUNT(AUTO) 4.98 MIL/uL (4.50-6.20); RED CELL DISTRIBUTION WIDTH 12.5 % (11.0-15.5); WHITE BLOOD COUNT (AUTO) 7.5 K/uL (4.8-10.8)
[2024-11-04 02:23] LABS: CREATININE 0.9 mg/dL (0.5-1.3); POTASSIUM 3.7 mmol/L (3.5-5.1)
[2024-11-04 02:27] LABS: ALBUMIN 3.6 g/dL (3.5-5.0); BILIRUBIN,DIRECT 0.1 mg/dL (0.0-0.3); BILIRUBIN,TOTAL 0.2 mg/dL (0.2-1.0); TOTAL PROTEIN, SERUM 7.3 g/dL (6.0-8.3)
[2024-11-04] MEDS ORDERED: ONDA-245 PO (02:34)
[2024-11-04] MEDS ORDERED: DICY20TA2 PO (02:34)
[2024-11-04] MEDS: DICYCLOMINE HCL 10 MG/5 ML ML PO ONE (02:37)
[2024-11-04] MEDS: MAG/ALUM/SIMETH 30 ML UDCUP PO ONE (02:37)
[2024-11-04] MEDS: LIDOCAINE HCL 2% VISCOUS 15 ML UDCUP PO ONE (02:37)
[2024-11-04] MEDS: FAMOTIDINE 20MG VIAL IV ONE (02:38)
[2024-11-04] MEDS: 0.9%NACL 1000ML 1,000 ML IV ONE (02:39)
[2024-11-04 03:54] VITALS: BP 113/69; PULSE 86; RESP 15; TEMP 98.1; O2SAT 98
== END 2024-11-04 04:08 | disposition home or self-care (01) ==
LOC: EDH 01:53
DX: E86.0 Dehydration (principal); K29.70 Gastritis, unspecified, without bleeding; F41.9 Anxiety disorder, unspecified; Z79.899 Other long term (current) drug therapy
CPT/HCPCS: 99284; 96374; 96361; 80076; 80048; 83690; 85025; 36415; J3490; J7030

== ENCOUNTER 2025-01-01 22:02 | Emergency (ER) | payer BC ==
[~2025-01-01] VITALS: Ht 165.1 cm; Wt 85.7 kg
[~2025-01-01 22:02] MED LIST changes: +DICY20TA2 PO; +ONDA-245 PO
--- NOTE | 2025-01-01 22:32 | ERN ---
ED Note History of Present Illness Stated Complaint: DIARRHEA, DIZZINESS, H/A X 3 WEEKS Chief Complaint: Diarrhea Time Seen by MD: 22:14 Dictation: This is a 19-year-old male who is overweight came into the emergency room complaining of diarrhea and dizziness for the past 3 weeks. Apparently 3 weeks ago he was diagnosed with a COVID-19 infection and he was recommended just observation and supportive care. He stated that since then he began experiencing initially liquidy watery stool but now increased frequency. He has been drinking body armor electrolyte water, orange juice and electrolyte solutions. No hematemesis or melena Temperature 99 pulse 116 respirations 18 blood pressure 130/84 with a pulse oximetry of 99% on room air His chronic medical problems include anxiety, gastroesophageal reflux, gastritis, episodes of hypoglycemia Allergies: Coded Allergies: No Known Drug Allergies (Unverified Allergy, Unknown, 10/26/19) Home Meds Active Scripts Dicyclomine HCl (Bentyl) 20 Mg Tab, 20 MG PO q12 hours PRN for abdominal pain/cramping, #10 TAB 0 Refills Prov:MEGA TORRES NP 11/04/24 Ondansetron (Ondansetron Odt) 8 Mg Tab.rapdis, 4 MG PO Q6H for nausea/vomiting for 3 Days, #12 TAB 0 Refills Prov:MEGA TORRES NP 11/04/24 Famotidine (Famotidine) 20 Mg Tablet, 1 TAB PO BID for 30 Days, #60 TAB 0 Refills Prov:MEGA TORRES NP 09/26/24 Ondansetron (Ondansetron Odt) 4 Mg Tab.rapdis, 4 MG PO Q6HPRN PRN for nausea, #15 TAB 0 Refills Prov:MEGA TORRES NP 09/26/24 Pantoprazole Sodium (Protonix) 40 Mg Ectab, 1 TAB PO DAILY for 30 Days, #30 TAB 0 Refills Prov:HAYDER HE MD 05/18/24 Famotidine (Pepcid) 20 Mg Tablet, 20 MG PO DAILY for 5 Days, #5 TAB Prov:RAMON SAN 02/16/24 Ondansetron (Ondansetron Odt) 4 Mg Tab.rapdis, 4 MG PO BID for 7 Days, #14 TAB Prov:RAMON SAN 02/16/24 Hydroxyzine HCl (Hydroxyzine HCl) 25 Mg Tablet, 25 MG PO BID for anxiety, #15 TAB Prov:HERMELINDA PATEL PAC 11/24/22 Past Medical History Past Medical History: Anxiety, GERD Surgical History: Other Surgical History Other: R SHOULDER CYST REMOVAL. Social History: ETOH RN Note Reviewed/Agreed w/PFSH: Yes Review of System Dictation Constitutional: Negative for fever,chills, and weight loss Eyes: Negative for injury, pain,redness, and discharge ENT: Negative for injury,pain or swelling Cardiovascular: Negative for chest pain, palpitations, and edema Respiratory: Negative for shortness of breath, cough, and wheezing, Abdomen/GI: Negative for abdominal pain, nausea, vomiting, and constipation positive for diarrhea, Back: Negative for injury and pain : Negative for injury, bleeding and discharge MS/Extremity: Negative for injury and deformity Skin: Negative for rash, and discoloration Neuro: Negative for headache, weakness, numbness, tingling, and seizure positive for dizziness Psych: Negative for suicide ideation, homicidal ideation, and hallucinations Initial Vital Sign VS Vital Signs Date Time Temp Pulse Resp B/P (MAP) Pulse Ox O2 Delivery O2 Flow Rate FiO2 01/01/25 22:03 99.0 116 18 130/84 99 Nasal Cannula 2.0 01/01/25 22:29 21 Physical Exam Dictation General: awake, alert, NAD Head/Face: Normocephalic, atraumatic Eyes: PERRL, EOMI, vision at baseline ENT: oral cavity clear, TMs clear, no signs of infection Neck: Trachea midline, supple, no nuchal rigidity Cardiovascular: RRR, normal S1/S2, No MRGs, no JVD Respiratory: CTAB, no respiratory distress, No rales or wheezes Abdomen: Soft, non-tender, non-distended, normal bowel sounds, no guarding or rebound. Skin: Warm, dry, normal turgor, no rash MS/Extremity: Pulses equal, no cyanosis, neurovascular intact, FROM Neuro: COAx4, GCS 15, strength 5/5, CN 2-12 intact, normal cerebellar exam, normal gait, Psych: Normal behavior, mood, and affect normal Extremities-trace edema without any palpable cords, Homans sign is negative Results (Laboratory/Radiology) Laboratory/Radiology Laboratory Tests Test 01/01/25 22:34 01/01/25 23:05 Urine Color COLORLESS (YELLOW) Urine Appearance CLEAR (CLEAR) Urine pH 7.0 (5.0-8.0) Urine Specific [place] 1.005 (1.001-1.031) Urine Protein NEGATIVE mg/dL (NEGATIVE) Urine Glucose (UA) 200 mg/dL (NEGATIVE) H Urine Ketones NEGATIVE mg/dL (NEGATIVE) Urine Occult Blood NEGATIVE (NEGATIVE) Urine Nitrate NEGATIVE (NEGATIVE) Urine Bilirubin NEGATIVE mg/dL (NEGATIVE) Urine Urobilinogen 0.2 mg/dL (0.2-1.0) Urine Leukocyte Esterase NEGATIVE Andre/uL Urine RBC None /HPF (0-1) Urine WBC 0-1 /HPF (0-1) Urine Squamous Epithelial Cells RARE /HPF (0-2) Urine Bacteria None /HPF (None Seen) White Blood Count 9.4 K/uL (4.8-10.8) Red Blood Count 5.39 MIL/uL (4.50-6.20) Hemoglobin 15.6 g/dL (14.0-18.0) Hematocrit 46.6 % (42-54) Mean Corpuscular Volume 86.5 fL (80-100) Mean Corpuscular Hemoglobin 28.9 pg (27.0-33.0) Mean Corpuscular Hemoglobin Concent 33.5 g/dL (32.0-36.0) Red Cell Distribution Width 12.2 % (11.0-15.5) Platelet Count 305 K/uL (130-400) Mean Platelet Volume 10.6 fL (7.5-10.5) H Immature Granulocyte % (Auto) 0.6 % (0-1) Neutrophils (%) (Auto) 71.6 % (40.0-77.0) Lymphocytes (%) (Auto) 20.2 % (21.0-51.0) L Monocytes (%) (Auto) 6.1 % (3.0-13.0) Eosinophils (%) (Auto) 1.0 % (0.0-8.0) Basophils (%) (Auto) 0.5 % (0.0-5.0) Neutrophils # (Auto) 6.8 K/uL (1.8-7.7) Lymphocytes # (Auto) 1.9 K/uL (1.0-4.8) Monocytes # (Auto) 0.6 K/uL (0.1-1.0) Eosinophils # (Auto) 0.09 K/uL (0.00-0.70) Basophils # (Auto) 0.05 K/uL (0.00-0.20) Absolute Immature Granulocyte (auto 0.06 K/uL (0-1) Nucleated Red Blood Cells 0.0 % (0.0-0.19) Sodium Level 139 mmol/L (136-145) Potassium Level 4.0 mmol/L (3.5-5.1) Chloride Level 104 mmol/L (101-111) Carbon Dioxide Level 31 mmol/L (21-32) Blood Urea Nitrogen 9 mg/dL (7-18) Creatinine 0.8 mg/dL (0.5-1.3) Glomerular Filtration Rate Calc 129 mL/min (>90) Random Glucose 88 mg/dL (70-105) Hemoglobin A1c 5.2 % (4.0-6.0) Estimated Average Glucose (eAG) 103 mg/dL (70-126) Whole Blood Ketones Quantitative 0.3 mmol/L (0.0-0.6) Total Calcium 8.8 mg/dL (8.5-10.1) Thyroid Stimulating Hormone (TSH) 0.45 uIU/mL (0.36-3.74) Labs Reviewed?: Yes ED Course ED Course Orders Procedure Category Date Status Time Cbc With Differential LAB 01/01/25 Complete 22:30 Basic Metabolic Panel LAB 01/01/25 Complete 22:30 Ketone Blood LAB 01/01/25 Complete Quantitative 22:30 Hemoglobin A1c LAB 01/01/25 Complete 22:30 Cortisol Pm LAB 01/01/25 Logged 22:30 Thyroid Stimulating LAB 01/01/25 Complete Hormone 22:30 Dextrose 5 %-0.45 % PHA 01/01/25 In Process Nacl (D5 1/2ns) 22:30 Urinalysis Profile LAB 01/01/25 Complete 23:08 Current Medications Medications (Trade) Dose Ordered Sig/Braulio Route PRN Reason Start Time Stop Time Status Last Admin Dose Admin Dextrose/Sodium Chloride 1,000 ml @ 125 mls/hr ONCE ONCE IV 01/01/25 22:30 01/02/25 06:29 01/02/25 00:09 Vital Signs Date Time Temp Pulse Resp B/P (MAP) Pulse Ox O2 Delivery O2 Flow Rate FiO2 01/01/25 22:29 98.2 101 18 145/81 99 Room Air* 0 21 01/01/25 22:03 99.0 116 18 130/84 99 Nasal Cannula 2.0 We will perform diagnostic labs, and administer medications according to the patient's complaint. Once the results are available, will review and personally interpreted the labs to rule out any acute life-threatening emergency the trach require immediate intervention and treatment. I will then re-evaluate the patient after treatment and diagnostic exams have return to determine whether the patient requires any further testing, can safely be discharged home or need further admission to hospital for additional treatment and evaluation. Labs reviewed CBC with a normal limits BNP 7 with a normal limits. CBC showed white count of 9.4 platelets 325. TSH 0.45 urinalysis unremarkable for any acute infection does have some glycosuria. Hemoglobin A1c 5.2 I had a long discussion with the patient and partner about 2 major issues 1. Episodes of hypoglycemia-may simply be because of his dietary indiscretions and eating only meat. And very poor eating habits, the other possibilities are adrenal insufficiency, carcinoid syndrome, insulinoma or pancreatic insufficiency 2. Diarrhea-this has been only since his COVID diagnosis 3 weeks ago, the other differential could be inflammatory bowel disease, irritable bowel syndrome I updated the patient and partner on all the available results and my thoughts and differential diagnoses and recommendations to have either primary care physician or a occupational health nurse supervisor consultation. They both verbalized full understanding . Medical Decision Making MDM Differential diagnosis: Colitis, pancreatitis, exocrine pancreatic insufficiency, irritable bowel syndrome, inflammatory bowel disease, endocrine abnormalities including hyperthyroidism, adrenal insufficiency or insulinoma. Patient's symptoms have been only for the past 3 weeks. With a benign exam, I doubt anything acute at this time however patient should still get outpatient evaluation done Rationale: Tests considered and ordered secondary to shared decision making include: Previous outside records reviewed: Old ER visits. Risk of complication and/or morbidity or mortality of patient management: None Medications-Per medication reconciliation Need for hospitalization: Patient does not meet criteria for hospitalization. Need for emergency major/minor surgery: No There are no social concerns with this patient. Prescription drug management Prescriptions will include symptomatic care Patient's prior external medical records from other ER visits were reviewed by me as indicated. Prior testing and results from previous visits were reviewed. Prior tests were taken into account with medical decision making and resource utilization, independent historian/historians were used to obtain complete medical history. I independently interpreted the test that were performed, results were reviewed by me and considered findings on radiology if ordered. Medical management and examination interpretation discussions were had by me with other qualified healthcare professionals as indicated for the patient's care. Problem List Problem List: (1) Hypoglycemia (2) Dizziness (3) Anxiety (4) Mild dehydration DX & DISP Disposition: Discharge Departure Impression: Primary Impression: Hypoglycemia Additional Impressions: Dizziness, Mild dehydration, COVID-19, Anxiety Condition: Stable Additional Instructions: Patient and the caregiver have been informed of all the diagnostic tests and the imaging conducted during the today's visit to the emergency room and has verbalized understanding of the results I have personally reviewed and interpreted all diagnostic exams performed here in the ER today as well as the vital signs documented by the nursing staff. The patient is now being discharged to home and should follow up with the primary care physician or the specialist as directed by the ER staff. Follow-up with primary care provider in 1 to 2 days. Take medications as directed here in the emergency room. Okay to continue home medications unless otherwise discussed during your visit in the emergency room today. Return to your nearest emergency room if symptoms worsen or if there is no improvement. Call 911 if you need immediate assistance. Take Tylenol or Motrin [id number] as needed and if no contraindications are present. Increase oral hydration. A wound culture or urine culture was ordered here in the emergency room department please follow-up with primary care provider and advise them to get repeat ports from our facility. If you had any Bunny wrap/splints that were applied here, please do not remove them until you see your primary care or specialty. Patient needs to follow up with primary care physician to further evaluate the periods of hypoglycemia-needs cortisol and ACTH stim test, workup for insulinoma or carcinoid syndrome I recommended that he follow up with the occupational health nurse supervisor to further evaluate the diarrhea. Referrals: JAMES WALDRON (PCP) JING MARTINEZ MD Jan 01, 2025 22:32
[2025-01-01 23:17] LABS: APPEARANCE,URINE CLEAR (CLEAR); GLUCOSE, URINE (UA) 200 mg/dL (NEGATIVE); LEUKOCYTE ESTERASE ,URINE NEGATIVE Leu/uL (NEGATIVE); NITRATE,URINE NEGATIVE (NEGATIVE); OCCULT BLOOD,URINE NEGATIVE (NEGATIVE)
[2025-01-01 23:24] LABS: ADD UA MICROSCOPIC YES
[2025-01-01 23:25] LABS: IMMATURE GRANULOCYTE ABSOLUTE 0.06 K/uL (0-1); NUCLEATED RED BLOOD CELLS 0.0 % (0.0-0.19); PLATELET COUNT (AUTO) 305 K/uL (130-400); RED BLOOD CELL COUNT(AUTO) 5.39 MIL/uL (4.50-6.20); RED CELL DISTRIBUTION WIDTH 12.2 % (11.0-15.5); WHITE BLOOD COUNT (AUTO) 9.4 K/uL (4.8-10.8)
[2025-01-01 23:28] LABS: SQUAMOUS EPITHELIAL CELL,UR RARE /HPF (0-2)
[2025-01-01 23:34] LABS: CREATININE 0.8 mg/dL (0.5-1.3); GLOMERULAR FILTR. RATE CALC 129.0 mL/min (>90); GLUCOSE,RANDOM 88.0 mg/dL (70-105); SODIUM SERUM 139.0 mmol/L (136-145); UREA NITROGEN, BLOOD 9.0 mg/dL (7-18)
[2025-01-02] MEDS: DEXTROSE 5 %-0.45 % NACL 1,000 ML IV ONE (00:09)
[2025-01-02 01:17] VITALS: BP 115/54; PULSE 79; RESP 18; TEMP 98.1; O2SAT 98
== END 2025-01-02 01:30 | disposition home or self-care (01) ==
LOC: EDH 22:02
DX: U07.1 COVID-19 (principal); E86.0 Dehydration; F41.9 Anxiety disorder, unspecified; E16.2 Hypoglycemia, unspecified; Z79.899 Other long term (current) drug therapy
CPT/HCPCS: 99284; 83036; 84443; 80048; 85025; 82010; 81001; 36415; 96374; J7042

== ENCOUNTER 2025-01-07 09:52 | Emergency (ER) | payer BC ==
[~2025-01-07] VITALS: Ht 165.1 cm; Wt 87.5 kg
[2025-01-07] MEDS: MAG/ALUM/SIMETH 30 ML UDCUP PO ONE (10:11)
[2025-01-07] MEDS: LIDOCAINE HCL 2% VISCOUS 15 ML UDCUP PO ONE (10:11)
[2025-01-07] MEDS: 0.9%NACL 1000ML 1,000 ML IV ONE (10:11)
[2025-01-07 10:33] VITALS: BP 121/85; PULSE 99; RESP 19; TEMP 98.4; O2SAT 99
[2025-01-07 10:37] LABS: IMMATURE GRANULOCYTE ABSOLUTE 0.05 K/uL (0-1); NUCLEATED RED BLOOD CELLS 0.0 % (0.0-0.19); PLATELET COUNT (AUTO) 317 K/uL (130-400); RED BLOOD CELL COUNT(AUTO) 5.59 MIL/uL (4.50-6.20); RED CELL DISTRIBUTION WIDTH 12.3 % (11.0-15.5); WHITE BLOOD COUNT (AUTO) 10.4 K/uL (4.8-10.8)
[2025-01-07 10:45] LABS: CREATININE 1.0 mg/dL (0.5-1.3); GLOMERULAR FILTR. RATE CALC 110.0 mL/min (>90); GLUCOSE,RANDOM 98.0 mg/dL (70-105); SODIUM SERUM 138.0 mmol/L (136-145); UREA NITROGEN, BLOOD 13.0 mg/dL (7-18)
[2025-01-07 10:46] LABS: ADD UA MICROSCOPIC NO; APPEARANCE,URINE CLEAR (CLEAR); GLUCOSE, URINE (UA) NEGATIVE (NEGATIVE); LEUKOCYTE ESTERASE ,URINE NEGATIVE Leu/uL (NEGATIVE); NITRATE,URINE NEGATIVE (NEGATIVE); OCCULT BLOOD,URINE NEGATIVE (NEGATIVE)
[2025-01-07 10:50] LABS: ASPARTATE AMINOTRANSFERASE 21.0 U/L (10-37); CREATINE KINASE, TOTAL 107.0 U/L (21-232); TOTAL PROTEIN, SERUM 8.4 g/dL (6.0-8.3)
[2025-01-07] MEDS ORDERED: LACT-356 PO (11:03)
--- NOTE | 2025-01-07 11:03 | ERN ---
General Chief Complaint: Diarrhea Stated Complaint: DIARRHEA Time Seen by MD: 09:56 Source: patient, family History of Present Illness Initial Comments In his is a 19-year-old gentleman coming in with the diarrhea. Per patient he has been having on and off diarrhea for three weeks. Patient has been evaluated by his PCP stool cultures are pending. Patient states that he was feeling a little weak so he decided to come in for further evaluation. Allergies: Coded Allergies: No Known Drug Allergies (Unverified Allergy, Unknown, 10/26/19) Home Meds Active Scripts Dicyclomine HCl (Bentyl) 20 Mg Tab, 20 MG PO q12 hours PRN for abdominal pain/cramping, #10 TAB 0 Refills Prov:MEGA TORRES BELT WORKER 11/04/24 Ondansetron (Ondansetron Odt) 8 Mg Tab.rapdis, 4 MG PO Q6H for nausea/vomiting for 3 Days, #12 TAB 0 Refills Prov:MEGA TORRES BELT WORKER 11/04/24 Famotidine (Famotidine) 20 Mg Tablet, 1 TAB PO BID for 30 Days, #60 TAB 0 R efills Prov:BHARGAVMEGA Weinstein Lucy BELT WORKER 09/26/24 Ondansetron (Ondansetron Odt) 4 Mg Tab.rapdis, 4 MG PO Q6HPRN PRN for nausea, #15 TAB 0 Refills Prov:MEGA TORRES BELT WORKER 09/26/24 Pantoprazole Sodium (Protonix) 40 Mg Ectab, 1 TAB PO DAILY for 30 Days, #30 TAB 0 Refills Prov:HAYDER HE MD 05/18/24 Famotidine (Pepcid) 20 Mg Tablet, 20 MG PO DAILY for 5 Days, #5 TAB Prov:RAMON SAN 02/16/24 Ondansetron (Ondansetron Odt) 4 Mg Tab.rapdis, 4 MG PO BID for 7 Days, #14 TAB Prov:RAMON SAN 02/16/24 Hydroxyzine HCl (Hydroxyzine HCl) 25 Mg Tablet, 25 MG PO BID for anxiety, #15 TAB Prov:HERMELINDA PATEL 11/24/22 Past Medical History Past Medical History: No Pertinent History Past Surgical History: Other Surgical History Other: RT SHOULDER SKIN LESION REMOVAL Social History Social History: ETOH ROS Dictation CONSTITUTIONAL: No chills, no fever, weakness, no diaphoresis, no malaise. HEAD/FACE: No signs of trauma. EENT: No eye pain, no blurred vision, no tearing, no double vision, no ear pain, no ear discharge, no nose pain, no nasal congestion, no throat pain, no throat swelling, no mouth pain. RESPIRATORY: No cough, no orthopnea, no SOB, no stridor, no wheezing. CARDIOVASCULAR: No chest pain, no edema, no palpitations, no syncope. GASTROINTESTINAL/ABDOMINAL: No abdominal pain, no constipation, diarrhea, no nausea, no vomiting. GENITOURINARY: No abnormal discharge, no dysuria, no frequent urination, no hematuria. No complaints of pain in the genitals. MUSCULOSKELETAL: No back pain, no gout, no joint pain, no joint swelling, no muscle pain, no muscle stiffness, no neck pain. INTEGUMENTARY: No change in color, no change in hair/nails, no dryness, no lesion, no lumps, no rash. NEUROLOGICAL/PSYCH: No anxiety, not depressed, no emotional problem, no headache, no numbness, no pre-existing deficit, no history of seizures, no tremors, no weakness. HEMATOLOGIC/LYMPHATIC: Not anemic, no history of blood clots, no apparent bleeding, no bruising, glands not swollen. All Systems Negative, Except as Noted. Physical Exam Physical Exam Dictation VITAL SIGNS: Reviewed. GENERAL APPEARANCE: Alert, oriented x3, no acute distress, obese. HEAD AND FACE: Non-traumatic. EYES: PERRL, pink conjunctivas, eyelid no trauma, anterior chamber clear. EARS: Pinnas intact and no signs of trauma or erythema. Ear canals clear and no discharge. TMs no erythema. NOSE: No discharge, no bleeding. OROPHARYNX: Mouth normal, teeth no caries, tongue pink. Pharynx clear, no erythema. Tonsils no exudates, no abscesses noted. Mucous membrane moist. NECK: Supple, non-tender, no thyromegaly, no masses, no JVD, no bruits. BREAST: Deferred. CHEST: No tenderness, no crepitus, no paradoxical movement, no retractions. LUNGS: Clear, well-ventilated, symmetric, no rales, no wheezing, no rhonchi, no stridor, good breath sounds bilaterally. HEART: Regular rate, regular rhythm, no murmur, no gallops. VASCULAR: No peripheral edema. ABDOMEN: Soft, positive bowel sounds, nondistended, no guarding, nontender, no rebound, no masses no hepatomegaly, no splenomegaly, no Ngo's sign, no hernias. RECTAL: Deferred. GENITAL: Deferred. NEUROLOGICAL: Normal speech, gross motor function intact, gross sensory function intact. MUSCULOSKELETAL: Neck nontender, full range of motion, back nontender, full range of motion. EXTREMITIES: Nontender, full range of motion. SKIN: Color pink, dry, no turgor, no rash, no lacerations, no abrasions, no contusions. LYMPHATICS: Deferred. Results Laboratory and Microbiology Lab and Micro Result Laboratory Tests Test 01/07/25 10:05 01/07/25 10:33 Urine Color LIGHT-YELLOW (YELLOW) Urine Appearance CLEAR (CLEAR) Urine pH 5.5 (5.0-8.0) Urine Specific [place] 1.019 (1.001-1.031) Urine Protein NEGATIVE mg/dL (NEGATIVE) Urine Glucose (UA) NEGATIVE mg/dL (NEGATIVE) Urine Ketones NEGATIVE mg/dL (NEGATIVE) Urine Occult Blood NEGATIVE (NEGATIVE) Urine Nitrate NEGATIVE (NEGATIVE) Urine Bilirubin NEGATIVE mg/dL (NEGATIVE) Urine Urobilinogen 0.2 mg/dL (0.2-1.0) Urine Leukocyte Esterase NEGATIVE Andre/uL White Blood Count 10.4 K/uL (4.8-10.8) Red Blood Count 5.59 MIL/uL (4.50-6.20) Hemoglobin 16.4 g/dL (14.0-18.0) Hematocrit 47.9 % (42-54) Mean Corpuscular Volume 85.7 fL (80-100) Mean Corpuscular Hemoglobin 29.3 pg (27.0-33.0) Mean Corpuscular Hemoglobin Concent 34.2 g/dL (32.0-36.0) Red Cell Distribution Width 12.3 % (11.0-15.5) Platelet Count 317 K/uL (130-400) Mean Platelet Volume 10.5 fL (7.5-10.5) Immature Granulocyte % (Auto) 0.5 % (0-1) Neutrophils (%) (Auto) 69.2 % (40.0-77.0) Lymphocytes (%) (Auto) 22.0 % (21.0-51.0) Monocytes (%) (Auto) 5.4 % (3.0-13.0) Eosinophils (%) (Auto) 2.2 % (0.0-8.0) Basophils (%) (Auto) 0.7 % (0.0-5.0) Neutrophils # (Auto) 7.2 K/uL (1.8-7.7) Lymphocytes # (Auto) 2.3 K/uL (1.0-4.8) Monocytes # (Auto) 0.6 K/uL (0.1-1.0) Eosinophils # (Auto) 0.23 K/uL (0.00-0.70) Basophils # (Auto) 0.07 K/uL (0.00-0.20) Absolute Immature Granulocyte (auto 0.05 K/uL (0-1) Nucleated Red Blood Cells 0.0 % (0.0-0.19) Sodium Level 138 mmol/L (136-145) Potassium Level 3.7 mmol/L (3.5-5.1) Chloride Level 100 mmol/L (101-111) L Carbon Dioxide Level 32 mmol/L (21-32) Blood Urea Nitrogen 13 mg/dL (7-18) Creatinine 1.0 mg/dL (0.5-1.3) Glomerular Filtration Rate Calc 110 mL/min (>90) Random Glucose 98 mg/dL (70-105) Total Calcium 9.0 mg/dL (8.5-10.1) Total Bilirubin 0.3 mg/dL (0.2-1.0) Aspartate Amino Transf (AST/SGOT) 21 U/L (10-37) Alanine Aminotransferase (ALT/SGPT) 76 U/L (12-78) Alkaline Phosphatase 113 U/L (50-136) Total Creatine Kinase 107 U/L (21-232) Total Protein 8.4 g/dL (6.0-8.3) H Albumin 4.2 g/dL (3.5-5.0) Lipase 15 U/L (16-77) L Labs Reviewed?: Yes MDM MDM: Differential diagnosis: Viral gastroenteritis, gastroenteritis, diarrhea, Rationale: Tests considered and ordered secondary to shared decision making include: Previous outside records reviewed: Old ER visits. Risk of complication and/or morbidity or mortality of patient management: None Medications-Per medication reconciliation Need for hospitalization: Patient does not meet criteria for hospitalization. Need for emergency major/minor surgery: No Patient is a 19-year-old gentleman coming in complaining of diarrhea for three weeks. Patient has been evaluated by his PCP in his pending laboratory workup. In the ED patient's labs were within normal limits. I did advised him appropriate follow up with PCP. Patient was hydrated with IV fluids and will be discharged in stable condition. ED Course Orders Procedure Category Date Status Time Cbc With Differential LAB 01/07/25 Complete 10:02 Comprehensive LAB 01/07/25 Complete Metabolic Panel 10:02 0.9%Nacl 1000ml (Ns PHA 01/07/25 Complete 1000ml) 10:30 Lidocaine Hcl 2% PHA 01/07/25 Complete Viscous (Lidocaine Hcl 10:30 Mag/Alum/Simeth 30ml PHA 01/07/25 Complete (Maalox Plus 30ml) 10:30 Pantoprazole 40mg Inj PHA 01/07/25 Complete (Protonix 40mg Inj 10:30 Creatine Kinase, Total LAB 01/07/25 Complete 10:02 Lipase LAB 01/07/25 Complete 10:02 Urinalysis Profile LAB 01/07/25 Complete 10:25 Current Medications Medications (Trade) Dose Ordered Sig/Braulio Route PRN Reason Start Time Stop Time Status Last Admin Dose Admin Al Hydroxide/Mg Hydroxide (MAALox PLUS 30ML) 30 ml ONCE ONCE PO 01/07/25 10:30 01/07/25 10:31 DC 01/07/25 10:11 Lidocaine HCl (Lidocaine HCl 2% Viscous) 10 ml ONCE ONCE PO 01/07/25 10:30 01/07/25 10:31 DC 01/07/25 10:11 Pantoprazole Sodium (PROTonix 40MG INJ) 40 mg ONCE ONCE IVP 01/07/25 10:30 01/07/25 10:31 DC 01/07/25 10:11 Sodium Chloride 1,000 ml @ 0 mls/hr ONCE ONCE IV 01/07/25 10:30 01/07/25 10:31 DC 01/07/25 10:11 Vital Signs Date Time Temp Pulse Resp B/P (MAP) Pulse Ox O2 Delivery O2 Flow Rate FiO2 01/07/25 10:33 98.4 99 19 121/85 99 Room Air* 0 21 01/07/25 09:56 98.1 97 18 127/91 99 Room Air 0 DX & DISP Disposition: Discharge Departure Impression: Primary Impression: Mild dehydration Additional Impression: Viral gastroenteritis Condition: Stable Scripts Lactobacillus Acidophilus (Acidophilus Probiotic) 500 Million Cell Capsule 1 CAP PO DAILY for 30 Days, #30 CAP 0 Refills Prov: HAYDER HE MD 01/07/25 Additional Instructions: FOLLOW-UP WITH PRIMARY CARE PROVIDER IN 1 TO 2 DAYS. TAKE MEDICATIONS DIRECTED HERE IN THE EMERGENCY ROOM. OKAY TO CONTINUE HOME MEDICATIONS UNLESS OTHERWISE DISCUSSED DURING YOUR VISIT IN THE EMERGENCY ROOM TODAY. RETURN TO YOUR NEAREST EMERGENCY ROOM IF SYMPTOMS WORSEN OR IF THERE IS NO IMPROVEMENT. CALL 911 IF YOU NEED IMMEDIATE ASSISTANCE. TAKE TYLENOL [id number] NEEDED AND IF NO CONTRAINDICATIONS ARE PRESENT. INCREASE ORAL HYDRATION. A WOUND CULTURE OR URINE CULTURE WAS ORDERED HERE IN THE EMERGENCY ROOM DEPARTMENT PLEASE FOLLOW-UP WITH PRIMARY CARE PROVIDER AND ADVISE THEM TO GET REPORTS FROM OUR FACILITY. IF YOU HAD ANY DONNA WRAP/SPLINTS THAT WERE APPLIED HERE, PLEASE DO NOT REMOVE THEM UNTIL YOU SEE YOUR PRIMARY CARE OR SPECIALTY. Referrals: Referrals: JAMES WALDRON (PCP) Time of Disposition: 11:03 HAYDER HE MD Jan 07, 2025 11:03
== END 2025-01-07 11:19 | disposition home or self-care (01) ==
LOC: EDH 09:52
DX: A08.4 Viral intestinal infection, unspecified (principal); E86.0 Dehydration; Z79.899 Other long term (current) drug therapy
CPT/HCPCS: 99284; 96374; 96361; 82550; 80053; 83690; 85025; 81003; 36415; J7030; J2470

== ENCOUNTER 2025-01-13 16:15 | Emergency (ER) | payer BC ==
[~2025-01-13] VITALS: Ht 165.1 cm; Wt 88.5 kg
[~2025-01-13 16:15] MED LIST changes: +LACT-356 PO
[2025-01-13 17:17] LABS: IMMATURE GRANULOCYTE ABSOLUTE 0.08 K/uL (0-1); NUCLEATED RED BLOOD CELLS 0.0 % (0.0-0.19); PLATELET COUNT (AUTO) 288 K/uL (130-400); RED BLOOD CELL COUNT(AUTO) 5.08 MIL/uL (4.50-6.20); RED CELL DISTRIBUTION WIDTH 12.2 % (11.0-15.5); WHITE BLOOD COUNT (AUTO) 9.1 K/uL (4.8-10.8)
[2025-01-13 17:26] LABS: CREATININE 0.9 mg/dL (0.5-1.3); GLOMERULAR FILTR. RATE CALC 125.0 mL/min (>90); GLUCOSE,RANDOM 111.0 mg/dL (70-105); SODIUM SERUM 139.0 mmol/L (136-145); UREA NITROGEN, BLOOD 11.0 mg/dL (7-18)
[2025-01-13 17:33] LABS: RAPID GROUP A STREP negative (NEGATIVE)
[2025-01-13 17:36] LABS: SARS-CoV-2, RNA, NAAT NEGATIVE SARS CoV-2 (NEGATIVE)
[2025-01-13 17:42] LABS: INFLUENZA TYPE A Negative For Type A (NEGATIVE); INFLUENZA TYPE B Negative For Type B (NEGATIVE)
[2025-01-13 17:49] LABS: ADD UA MICROSCOPIC NO; APPEARANCE,URINE CLEAR (CLEAR); GLUCOSE, URINE (UA) NEGATIVE (NEGATIVE); LEUKOCYTE ESTERASE ,URINE NEGATIVE Leu/uL (NEGATIVE); NITRATE,URINE NEGATIVE (NEGATIVE); OCCULT BLOOD,URINE NEGATIVE (NEGATIVE)
[2025-01-13] MEDS: 0.9%NACL 1000ML 1,000 ML IV ONE (18:28)
--- NOTE | 2025-01-13 18:52 | ERN ---
ED Note History of Present Illness Stated Complaint: WEAKNESS Chief Complaint: Weakness Time Seen by MD: 17:10 Time Seen by Midlevel: 17:10 Dictation: The Patient is a 19-year-old male with no significant past medical history who presents to the emergency department with complaints of nonbloody diarrhea onset four weeks ago associated with nausea. Patient reports he began to feel lightheaded today and thinks he is dehydrated. Patient reports occasional generalized abdominal pain. Denies any fevers. Reports he is following up with the his primary doctor and they are checking his stool for any bacteria. Allergies: Coded Allergies: No Known Drug Allergies (Unverified Allergy, Unknown, 10/26/19) Home Meds Active Scripts Lactobacillus Acidophilus (Acidophilus Probiotic) 500 Million Cell Capsule, 1 CAP PO DAILY for 30 Days, #30 CAP 0 Refills Prov:HAYDER HE MD 01/07/25 Dicyclomine HCl (Bentyl) 20 Mg Tab, 20 MG PO q12 hours PRN for abdominal pain/cramping, #10 TAB 0 Refills Prov:MEGA TORRES NP 11/04/24 Ondansetron (Ondansetron Odt) 8 Mg Tab.rapdis, 4 MG PO Q6H for nausea/vomiting for 3 Days, #12 TAB 0 Refills Prov:MEGA TORRES NP 11/04/24 Famotidine (Famotidine) 20 Mg Tablet, 1 TAB PO BID for 30 Days, #60 TAB 0 Refills Prov:MEGA TORRES NP 09/26/24 Ondansetron (Ondansetron Odt) 4 Mg Tab.rapdis, 4 MG PO Q6HPRN PRN for nausea, #15 TAB 0 Refills Prov:MEGA TORRES NP 09/26/24 Pantoprazole Sodium (Protonix) 40 Mg Ectab, 1 TAB PO DAILY for 30 Days, #30 TAB 0 Refills Prov:HAYDER HE MD 05/18/24 Famotidine (Pepcid) 20 Mg Tablet, 20 MG PO DAILY for 5 Days, #5 TAB Prov:RAMON SAN 02/16/24 Ondansetron (Ondansetron Odt) 4 Mg Tab.rapdis, 4 MG PO BID for 7 Days, #14 TAB Prov:RAMON SAN 02/16/24 Hydroxyzine HCl (Hydroxyzine HCl) 25 Mg Tablet, 25 MG PO BID for anxiety, #15 TAB Prov:HERMELINDA PATEL PAC 11/24/22 Past Medical History Past Medical History: No Pertinent History Surgical History: Other Surgical History Other: CYST REMOVAL TO RIGHT SHOULDER. Social History: ETOH RN Note Reviewed/Agreed w/PFSH: Yes Review of System Dictation Constitutional: Negative for fever,chills, and weight loss Eyes: Negative for injury, pain,redness, and discharge ENT: Negative for injury,pain or swelling Cardiovascular: Negative for chest pain, palpitations, and edema Respiratory: Negative for shortness of breath, cough, and wheezing, Abdomen/GI: Negative for vomiting, and constipation positive for abdominal pain, nausea, diarrhea Back: Negative for injury and pain : Negative for injury, bleeding and discharge MS/Extremity: Negative for injury and deformity Skin: Negative for rash, and discoloration Neuro: Negative for headache, numbness, tingling, and seizure positive for weakness, Psych: Negative for suicide ideation, homicidal ideation, and hallucinations Initial Vital Sign VS Vital Signs Date Time Temp Pulse Resp B/P (MAP) Pulse Ox O2 Delivery O2 Flow Rate FiO2 01/13/25 16:29 98.1 110 19 114/69 99 Room Air 01/13/25 17:23 0 21 Physical Exam Dictation Vital Signs reviewed General Appearance: Alert, oriented x 3, no acute distress, well developed, nourished. Head and Face: non-traumatic. Eyes: PERRL, pink conjunctivas, eyelid no trauma, anterior chamber with arcus senilis. Ears: Pinnas intact and no signs of trauma or erythema ear canals clear and no discharge TM no erythema Nose: No discharge, no bleeding. Oropharynx: Mouth normal, tongue pink. pharynx clear,no erythema, tonsils no exudates, no abscesses noted, mucous membrane moist Neck: Supple, non-tender, no thyromegaly, no masses, no JVD, no bruits Breast:Deferred Chest:No tenderness, no crepitus, no paradoxical movement, no retractions Lungs:Clear, well-ventilated, symmetric, no rales, no wheezing, no rhonchi, no stridor, good breath sounds bilaterally Heart: Regular rate, regular rhythm, no murmur, no gallops Vascular: no peripheral edema, Abdomen: Soft, positive bowel sounds, nondistended, no guarding, nontender, no rebound, no masses no hepatomegaly, no splenomegaly, no Ngo's sign, no hernias. Rectal: Deferred Genital: Deferred Neurological: Normal speech, motor function intact, sensory function intact , upper extremities equal in strength, lower extremities equal in strength Musculoskeletal: Neck nontender, full range of motion, back nontender, full range of motion, Extremities: nontender, full range of motion Skin: Color pink, dry, no turgor, no rash, no lacerations, no abrasions, no contusions. Lymphatic: Deferred Results (Laboratory/Radiology) Laboratory/Radiology Laboratory Tests Test 01/13/25 16:52 01/13/25 17:12 01/13/25 18:23 White Blood Count 9.1 K/uL (4.8-10.8) Red Blood Count 5.08 MIL/uL (4.50-6.20) Hemoglobin 14.9 g/dL (14.0-18.0) Hematocrit 43.9 % (42-54) Mean Corpuscular Volume 86.4 fL (80-100) Mean Corpuscular Hemoglobin 29.3 pg (27.0-33.0) Mean Corpuscular Hemoglobin Concent 33.9 g/dL (32.0-36.0) Red Cell Distribution Width 12.2 % (11.0-15.5) Platelet Count 288 K/uL (130-400) Mean Platelet Volume 11.0 fL (7.5-10.5) H Immature Granulocyte % (Auto) 0.9 % (0-1) Neutrophils (%) (Auto) 67.5 % (40.0-77.0) Lymphocytes (%) (Auto) 22.3 % (21.0-51.0) Monocytes (%) (Auto) 6.4 % (3.0-13.0) Eosinophils (%) (Auto) 2.1 % (0.0-8.0) Basophils (%) (Auto) 0.8 % (0.0-5.0) Neutrophils # (Auto) 6.1 K/uL (1.8-7.7) Lymphocytes # (Auto) 2.0 K/uL (1.0-4.8) Monocytes # (Auto) 0.6 K/uL (0.1-1.0) Eosinophils # (Auto) 0.19 K/uL (0.00-0.70) Basophils # (Auto) 0.07 K/uL (0.00-0.20) Absolute Immature Granulocyte (auto 0.08 K/uL (0-1) Nucleated Red Blood Cells 0.0 % (0.0-0.19) Sodium Level 139 mmol/L (136-145) Potassium Level 3.8 mmol/L (3.5-5.1) Chloride Level 102 mmol/L (101-111) Carbon Dioxide Level 30 mmol/L (21-32) Blood Urea Nitrogen 11 mg/dL (7-18) Creatinine 0.9 mg/dL (0.5-1.3) Glomerular Filtration Rate Calc 125 mL/min (>90) Random Glucose 111 mg/dL (70-105) H Total Calcium 8.8 mg/dL (8.5-10.1) Urine Color COLORLESS (YELLOW) Urine Appearance CLEAR (CLEAR) Urine pH 7.0 (5.0-8.0) Urine Specific Pablo 1.008 (1.001-1.031) Urine Protein NEGATIVE mg/dL (NEGATIVE) Urine Glucose (UA) NEGATIVE mg/dL (NEGATIVE) Urine Ketones NEGATIVE mg/dL (NEGATIVE) Urine Occult Blood NEGATIVE (NEGATIVE) Urine Nitrate NEGATIVE (NEGATIVE) Urine Bilirubin NEGATIVE mg/dL (NEGATIVE) Urine Urobilinogen 0.2 mg/dL (0.2-1.0) Urine Leukocyte Esterase NEGATIVE Andre/uL Influenza Type A Antigen Negative For Type A Influenza Type B Antigen Negative For Type B SARS-CoV-2, RNA, NAAT NEGATIVE SARS CoV-2 Group A Streptococcus Rapid negative (NEGATIVE) Whole Blood Glucose 106 MG/DL (70-110) Labs Reviewed?: Yes ED Course ED Course Orders Procedure Category Date Status Time Cbc With Differential LAB 01/13/25 Complete 16:32 Basic Metabolic Panel LAB 01/13/25 Complete 16:32 Urinalysis Profile LAB 01/13/25 Complete 16:32 Covid Rna Naat LAB 01/13/25 Complete 16:32 Influenza Type A & B, LAB 01/13/25 Complete Rapid 16:32 Rapid (Group A Strep) LAB 01/13/25 Complete 16:32 0.9%Nacl 1000ml (Ns PHA 01/13/25 Complete 1000ml) 18:00 Ondansetron 4mg Inj PHA 01/13/25 Complete (Zofran 4mg Inj) 18:00 Current Medications Medications (Trade) Dose Ordered Sig/Braulio Route PRN Reason Start Time Stop Time Status Last Admin Dose Admin Ondansetron HCl (zoFRAN 4MG INJ) 4 mg ONCE ONCE IVP 01/13/25 18:00 01/13/25 18:01 DC 01/13/25 18:29 Sodium Chloride 1,000 ml @ 0 mls/hr ONCE ONCE IV 01/13/25 18:00 01/13/25 18:01 DC 01/13/25 18:28 Vital Signs Date Time Temp Pulse Resp B/P (MAP) Pulse Ox O2 Delivery O2 Flow Rate FiO2 01/13/25 17:23 98.1 89 16 112/68 98 Room Air* 0 21 01/13/25 16:29 98.1 110 19 114/69 99 Room Air Medical Decision Making MDM The Patient is a 19-year-old male with no significant past medical history who presents to the emergency department with complaints of nonbloody diarrhea onset four weeks ago associated with nausea. Patient reports he began to feel lightheaded today and thinks he is dehydrated. Patient reports occasional generalized abdominal pain. Denies any fevers. Reports he is following up with the his primary doctor and they are checking his stool for any bacteria. CBC showed no leukocytosis, no anemia, chemistry showed no electrolyte imbalance, normal renal function, urinalysis unremarkable, serology negative. Patient received IV fluids and Zofran in ER. On physical exam patient is in no acute distress, nontender abdomen to palpation, neurologically intact. Patient with stable vital signs. We will be discharged to follow up with PCP. Differential diagnosis: Dehydration, electrolyte imbalance, gastroenteritis, acute kidney injury Need for hospitalization: Patient does not meet criteria for hospitalization. There are no social concerns with this patient. DX & DISP Disposition: Discharge Departure Impression: Primary Impression: Viral gastroenteritis Additional Impression: Mild dehydration Condition: Stable Additional Instructions: Your labs were unremarkable. You were slightly dehydrated. Continue oral hydration at home. Follow up with your primary doctor in 1-2 days. If anything worsens please return to ER. FOLLOW-UP WITH PRIMARY CARE PROVIDER IN 1 TO 2 DAYS. TAKE MEDICATIONS DIRECTED HERE IN THE EMERGENCY ROOM. OKAY TO CONTINUE HOME MEDICATIONS UNLESS OTHERWISE DISCUSSED DURING YOUR VISIT IN THE EMERGENCY ROOM TODAY. RETURN TO YOUR NEAREST EMERGENCY ROOM IF SYMPTOMS WORSEN OR IF THERE IS NO IMPROVEMENT. CALL 911 IF YOU NEED IMMEDIATE ASSISTANCE. TAKE TYLENOL [id number] NEEDED AND IF NO CONTRAINDICATIONS ARE PRESENT. INCREASE ORAL HYDRATION. A WOUND CULTURE OR URINE CULTURE WAS ORDERED HERE IN THE EMERGENCY ROOM DEPARTMENT PLEASE FOLLOW-UP WITH PRIMARY CARE PROVIDER AND ADVISE THEM TO GET REPEAT PORTS FROM OUR FACILITY. IF YOU HAD ANY DONNA WRAP/SPLINTS THAT WERE APPLIED HERE, PLEASE DO NOT REMOVE THEM UNTIL YOU SEE YOUR PRIMARY CARE OR SPECIALTY. Referrals: JAMES WALDRON (PCP) Time of Disposition: 18:56 I have reviewed the case, and I agree with, Diagnosis and Plan TETE COVARRUBIAS [facility] Jan 13, 2025 18:52
[2025-01-13 19:09] VITALS: BP 116/68; PULSE 85; RESP 16; TEMP 98; O2SAT 98
== END 2025-01-13 19:14 | disposition home or self-care (01) ==
LOC: EDH 16:15
DX: A08.4 Viral intestinal infection, unspecified (principal); E86.0 Dehydration; Z79.899 Other long term (current) drug therapy; Z20.822 Contact with and (suspected) exposure to COVID-19
CPT/HCPCS: 99284; 96374; 87635; 80048; 85025; 87880; 87804 ×2; 82948; 81003; 36415; J7030; J2405

== ENCOUNTER 2025-01-16 20:16 | Emergency (ER) | payer BC ==
[~2025-01-16] VITALS: Ht 165.1 cm; Wt 88.5 kg
--- NOTE | 2025-01-16 20:26 | ERN ---
ED Note History of Present Illness Stated Complaint: ABD PAIN, N/D Chief Complaint: Abdominal Pain Time Seen by MD: 20:21 Time Seen by Midlevel: 20:22 Dictation: is a 19-year-old male with no reported chronic health issues who presented to the emergency department this evening for evaluation of diarrhea. He reports daily episodes of diarrhea x1 month. He states he also has been experiencing blood glucose drops so much though that he bought a glucometer. He states today he took his blood glucose level and it was at 90. He states a friend took him out for dinner at [employer] today and while eating some pasta and chicken he developed 7/10 abdominal pain/cramping accompanied by dull headache, nausea, and dizziness. He states he feels dehydrated and that his mouth is very dry. He has been to his PCP with last visit one week ago. He states he had some stool studies performed which revealed moderate yeast but no parasites. He was prescribed Diflucan which he has already taken. Receive referral for GI but states he does not have the funds to to go. Upon arrival to the emergency department Accu-Chek 115. He denies fever, chills, shortness of breath, cough, chest pain, palpitations, edema,vomiting, hematemesis, constipation,melena, he matochezia, dysuria, or focal weakness/paresthesia. PCP: Dr. Placido Torres Allergies: Coded Allergies: No Known Drug Allergies (Unverified Allergy, Unknown, 10/26/19) Home Meds Active Scripts Ondansetron (Ondansetron Odt) 4 Mg Tab.rapdis, 4 MG PO Q6HPRN PRN for nausea, #15 TAB 0 Refills Prov:MEGA TORRES NP 01/16/25 Dicyclomine HCl (Bentyl) 10 Mg Cap, 1 CAP PO Q6HPRN PRN for irritable bowel symptoms, #15 CAP 0 Refills Prov:MEGA TORRES NP 01/16/25 Lactobacillus Acidophilus (Acidophilus Probiotic) 500 Million Cell Capsule, 1 CAP PO DAILY for 30 Days, #30 CAP 0 Refills Prov:HAYDER HE MD 01/07/25 Dicyclomine HCl (Bentyl) 20 Mg Tab, 20 MG PO q12 hours PRN for abdominal pain/cramping, #10 TAB 0 Refills Prov:MEGA TORRES NETWORK ACCOUNT MANAGER 11/04/24 Ondansetron (Ondansetron Odt) 8 Mg Tab.rapdis, 4 MG PO Q6H for nausea/vomiting for 3 Days, #12 TAB 0 Refills Prov:MEGA TORRES NETWORK ACCOUNT MANAGER 11/04/24 Famotidine (Famotidine) 20 Mg Tablet, 1 TAB PO BID for 30 Days, #60 TAB 0 Refills Prov:MEGA TORRES NETWORK ACCOUNT MANAGER 09/26/24 Ondansetron (Ondansetron Odt) 4 Mg Tab.rapdis, 4 MG PO Q6HPRN PRN for nausea, #15 TAB 0 Refills Prov:MEGA TORRES NETWORK ACCOUNT MANAGER 09/26/24 Pantoprazole Sodium (Protonix) 40 Mg Ectab, 1 TAB PO DAILY for 30 Days, #30 TAB 0 Refills Prov:HAYDER HE MD 05/18/24 Famotidine (Pepcid) 20 Mg Tablet, 20 MG PO DAILY for 5 Days, #5 TAB Prov:RAMON SAN 02/16/24 Ondansetron (Ondansetron Odt) 4 Mg Tab.rapdis, 4 MG PO BID for 7 Days, #14 TAB Prov:RAMON SAN 02/16/24 Hydroxyzine HCl (Hydroxyzine HCl) 25 Mg Tablet, 25 MG PO BID for anxiety, #15 TAB Prov:HERMELINDA PATEL PAC 11/24/22 Past Medical History Past Medical History: No Pertinent History Surgical History: Other Surgical History Other: CYST REMOVAL TO RIGHT SHOULDER. Family History: DM (Wrap) Social History: ETOH RN Note Reviewed/Agreed w/PFSH: Yes Review of System Dictation REVIEW OF SYSTEMS: CONSTITUTIONAL: Patient denies fevers, chills, sweats and weight changes. Reports fatigue and general weakness EYES: Patient denies any visual symptoms. EARS, NOSE, AND THROAT: No difficulties with hearing. No symptoms of rhinitis or sore throat. Reports dry mouth CARDIOVASCULAR: Patient denies chest pains, palpitations, orthopnea and paroxysmal nocturnal dyspnea. RESPIRATORY: No dyspnea on exertion, no wheezing or cough. GI: No vomiting, constipation, hematochezia or melena. Reports one month of daily diarrhea. States he saw his PCP and stool studies were ordered. You states that they were negative for parasites but showed + 100 use. He states he took the prescribed dose of Diflucan. He states this evening while at a restaurant he developed 7/10 abdominal pain/cramping. : No urinary hesitancy or dribbling. No nocturia or urinary frequency. No abnormal urethral discharge. MUSCULOSKELETAL: No myalgias or arthralgias. NEUROLOGIC: No seizures. Patient denies numbness, tingling or weakness. PSYCHIATRIC: Patient denies problems with mood disturbance. Reports feeling anxious ENDOCRINE: No excessive urination or excessive thirst. DERMATOLOGIC: Patient denies any rashes or skin changes. Initial Vital Sign VS Vital Signs Date Time Temp Pulse Resp B/P (MAP) Pulse Ox O2 Delivery O2 Flow Rate FiO2 01/16/25 20:17 98.2 115 20 141/89 97 Room Air 01/16/25 20:43 0 21 Physical Exam Dictation Vital signs: Reviewed. Afebrile Constitutional: No acute distress. Non-toxic appearing. Head/Face: Normocephalic, atraumatic. Eyes: Periorbital areas with no swelling, redness, or edema. Lids and lashes are normal. Conjunctival injection is absent. Sclera anicteric. Pupils equal, round, reactive to light. ENT: Pinnas intact and no signs of trauma or erythema. Ear canals clear and no discharge. TMs no erythema. No nasal discharge or bleeding noted. Oropharynx with no exudate, redness, swelling, masses, exudates, or evidence of obstruction. Uvula midline. Mucous membranes slightly dry. Neck: Trachea midline, no masses palpated, and no cervical lymphadenopathy. No swelling. Supple, full range of motion. Chest/Axilla: No tenderness, no crepitus, no paradoxical movement, no retractions. Cardiovascular: Regular rate, regular rhythm, no murmur, no gallops. Symmetric pulses. No peripheral edema. Respiratory: Respirations even and unlabored. Lung sounds clear; no wheezes, rales or rhonchi. Room air SpO2 99% Gastrointestinal: Nondistended. Bowel sounds are normal. No mass or organomegaly . Tenderness diffusely. No rebound. No rigidity. No voluntary or involuntary guarding. No Ngo's sign. Neurological: Normal speech, gross motor function intact, gross sensory function intact. No focal weakness/Paresthesia. Musculoskeletal/Extremities: All extremities have full range of motion, no pain or tenderness on palpation. Symmetric pulses. Integumentary: Intact. Skin is normal color, warm and dry. Cap refill less than 2 seconds. Results (Laboratory/Radiology) Laboratory/Radiology Laboratory Tests Test 01/16/25 20:20 01/16/25 20:37 01/16/25 20:39 01/16/25 21:20 Whole Blood Glucose 115 MG/DL (70-110) H 116 MG/DL (70-110) H Urine Color COLORLESS (YELLOW) Urine Appearance CLEAR (CLEAR) Urine pH 6.0 (5.0-8.0) Urine Specific [place] 1.009 (1.001-1.031) Urine Protein NEGATIVE mg/dL (NEGATIVE) Urine Glucose (UA) NEGATIVE mg/dL (NEGATIVE) Urine Ketones NEGATIVE mg/dL (NEGATIVE) Urine Occult Blood NEGATIVE (NEGATIVE) Urine Nitrate NEGATIVE (NEGATIVE) Urine Bilirubin NEGATIVE mg/dL (NEGATIVE) Urine Urobilinogen 0.2 mg/dL (0.2-1.0) Urine Leukocyte Esterase NEGATIVE Andre/uL White Blood Count 9.6 K/uL (4.8-10.8) Red Blood Count 5.26 MIL/uL (4.50-6.20) Hemoglobin 15.3 g/dL (14.0-18.0) Hematocrit 44.9 % (42-54) Mean Corpuscular Volume 85.4 fL (80-100) Mean Corpuscular Hemoglobin 29.1 pg (27.0-33.0) Mean Corpuscular Hemoglobin Concent 34.1 g/dL (32.0-36.0) Red Cell Distribution Width 12.4 % (11.0-15.5) Platelet Count 299 K/uL (130-400) Mean Platelet Volume 10.8 fL (7.5-10.5) H Immature Granulocyte % (Auto) 0.7 % (0-1) Neutrophils (%) (Auto) 68.2 % (40.0-77.0) Lymphocytes (%) (Auto) 21.0 % (21.0-51.0) Monocytes (%) (Auto) 6.4 % (3.0-13.0) Eosinophils (%) (Auto) 3.1 % (0.0-8.0) Basophils (%) (Auto) 0.6 % (0.0-5.0) Neutrophils # (Auto) 6.5 K/uL (1.8-7.7) Lymphocytes # (Auto) 2.0 K/uL (1.0-4.8) Monocytes # (Auto) 0.6 K/uL (0.1-1.0) Eosinophils # (Auto) 0.30 K/uL (0.00-0.70) Basophils # (Auto) 0.06 K/uL (0.00-0.20) Absolute Immature Granulocyte (auto 0.07 K/uL (0-1) Nucleated Red Blood Cells 0.0 % (0.0-0.19) Erythrocyte Sedimentation Rate 5 MM/HR (0-15) Sodium Level 137 mmol/L (136-145) Potassium Level 3.9 mmol/L (3.5-5.1) Chloride Level 101 mmol/L (101-111) Carbon Dioxide Level 31 mmol/L (21-32) Blood Urea Nitrogen 13 mg/dL (7-18) Creatinine 1.1 mg/dL (0.5-1.3) Glomerular Filtration Rate Calc 98 mL/min (>90) Random Glucose 115 mg/dL (70-105) H Total Calcium 9.3 mg/dL (8.5-10.1) Phosphorus Level 4.3 mg/dL (2.5-4.9) Magnesium Level 2.00 mg/dL (1.80-2.40) Total Bilirubin 0.2 mg/dL (0.2-1.0) Direct Bilirubin 0.1 mg/dL (0.0-0.3) Aspartate Amino Transf (AST/SGOT) 16 U/L (10-37) Alanine Aminotransferase (ALT/SGPT) 57 U/L (12-78) Alkaline Phosphatase 118 U/L (50-136) Total Protein 7.8 g/dL (6.0-8.3) Albumin 3.8 g/dL (3.5-5.0) Thyroid Stimulating Hormone (TSH) 0.64 uIU/mL (0.36-3.74) # Labs Reviewed?: Yes EKG Comment: EKG Interpretation: Time Reviewed: 2030 Ventricular rate: 108 bpm AL Interval: 126 ms QRS duration: [address] segment elevation or depression. Clinical impression: sinus tachycardia EKG Reviewed and interpreted by Dr. Grider ED Course ED Course Orders Procedure Category Date Status Time 0.9%Nacl 1000ml (Ns PHA 01/16/25 Complete 1000ml) 20:30 Dicyclomine Hcl PHA 01/16/25 Complete (Bentyl 20mg Inj) 20:30 Cbc With Differential LAB 01/16/25 Complete 20:24 Basic Metabolic Panel LAB 01/16/25 Complete 20:24 Hepatic Function Panel LAB 01/16/25 Complete 20:24 Magnesium LAB 01/16/25 Complete 20:24 Phosphorus LAB 01/16/25 Complete 20:24 Erythrocyte Sed Rate LAB 01/16/25 Complete 20:24 Thyroid Stimulating LAB 01/16/25 Complete Hormone 20:24 12 Lead Ekg Tracing- EKG 01/16/25 Complete Technical 20:24 Urinalysis Profile LAB 01/16/25 Complete 20:24 Ondansetron 4mg Inj PHA 01/16/25 Complete (Zofran 4mg Inj) 20:30 Bedside Glucose CPOE 01/16/25 Transmitted Fingerstick 20:28 Current Medications Medications (Trade) Dose Ordered Sig/Braulio Route PRN Reason Start Time Stop Time Status Last Admin Dose Admin Dicyclomine HCl (Bentyl 20mg Inj) 10 mg ONCE ONCE IM 01/16/25 20:30 01/16/25 20:31 DC 01/16/25 21:11 Ondansetron HCl (zoFRAN 4MG INJ) 4 mg ONCE ONCE IVP 01/16/25 20:30 01/16/25 20:31 DC 01/16/25 21:11 Sodium Chloride 1,000 ml @ 0 mls/hr ONCE ONCE IV 01/16/25 20:30 01/16/25 20:31 DC 01/16/25 21:12 Vital Signs Date Time Temp Pulse Resp B/P (MAP) Pulse Ox O2 Delivery O2 Flow Rate FiO2 01/16/25 22:37 98.2 80 16 118/60 98 Room Air* 0 21 01/16/25 20:43 98.2 86 16 117/66 98 Room Air* 0 21 01/16/25 20:17 98.2 115 20 141/89 97 Room Air Uneventful ED course. Vital signs remained stable; afebrile and normotensive with room air SpO2 97-98%. Laboratory findings as noted below. No elevation of WBCs. H&H are stable. Glucose 115. Urine is clear. He has had no further emesis or diarrhea stool. He received doses Bentyl, Zofran, and NS 1000 mL IV as bolus. He has been instructed to follow up with his primary care physician. Medical Decision Making MDM MDM: DIFFERENTIAL DIAGNOSIS: HYPOGLYCEMIA, ELECTROLYTE DERANGEMENT, ACUTE DEHYDRATION, GASTROENTERITIS RATIONALE: TESTS CONSIDERED AND ORDERED SECONDARY TO SHARED DECISION MAKING INCLUDE: LAB PREVIOUS OUTSIDE RECORDS REVIEWED: OLD ER VISITS. RISK OF COMPLICATION AND/OR MORBIDITY OR MORTALITY OF PATIENT MANAGEMENT: NONE MEDICATIONS-PER MEDICATION RECONCILIATION NEED FOR HOSPITALIZATION: PATIENT DOES NOT MEET CRITERIA FOR HOSPITALIZATION. NEED FOR EMERGENCY MAJOR/MINOR SURGERY: NO THERE ARE NO SOCIAL CONCERNS WITH THIS PATIENT. PRESCRIPTION DRUG MANAGEMENT: BUT NO, ZOFRAN PRESCRIPTIONS WILL INCLUDE SYMPTOMATIC CARE PATIENT'S PRIOR EXTERNAL MEDICAL RECORDS FROM OTHER ER VISITS WERE REVIEWED BY ME INDICATED. PRIOR TESTING AND RESULTS FROM PREVIOUS VISITS WERE REVIEWED. PRIOR TESTS WERE TAKEN INTO ACCOUNT WITH MEDICAL DECISION MAKING AND RESOURCE UTILIZATION, INDEPENDENT HISTORIAN/HISTORIANS WERE USED TO OBTAIN COMPLETE MEDICAL HISTORY. I INDEPENDENTLY INTERPRETED THE TEST THAT WERE PERFORMED, RESULTS WERE REVIEWED BY ME AND CONSIDERED FINDINGS ON RADIOLOGY IF ORDERED. MEDICAL MANAGEMENT AND EXAMINATION INTERPRETATION DISCUSSIONS WERE HAD BY ME WITH OTHER QUALIFIED HEALTHCARE PROFESSIONALS INDICATED FOR THE PATIENT'S CARE. DX & DISP Disposition: Discharge Departure Impression: Primary Impression: Diarrhea Condition: Stable Scripts Ondansetron (Ondansetron Odt) 4 Mg Tab.rapdis 4 MG PO Q6HPRN PRN for nausea, #15 TAB 0 Refills Prov: MEGA TORRES NETWORK ACCOUNT MANAGER 01/16/25 Dicyclomine HCl (Bentyl) 10 Mg Cap 1 CAP PO Q6HPRN PRN for irritable bowel symptoms, #15 CAP 0 Refills Prov: MEGA TORRES NETWORK ACCOUNT MANAGER 01/16/25 Additional Instructions: WERE SEEN AT THE EMERGENCY DEPARTMENT FOR DIARRHEA AND ABDOMINAL CRAMPS. YOU RECEIVED IV FLUIDS AND MEDICINE FOR CRAMPING (BENTYL AND MEDICINE FOR NAUSEA (ZOFRAN. YOUR LAB WORK, ELECTROLYTES, AND URINE WERE NORMAL. YOUR GLUCOSE LEVELS WERE WITHIN NORMAL LIMITS. CONTINUE TO MONITOR YOUR GLUCOSE LEVELS. YOU NEED TO REMAIN HYDRATED. DRINK PLENTY OF FLUIDS (WATER, ELECTROLYTE SOLUTIONS LIKE PEDIALYTE OR GATORADE). AVOID ALCOHOL AND CAFFEINE. EAT SMALL, LIGHT MEALS STICK TO A BLAND FLUIDS (RICE, BANANAS, TOAST, AND ABSCESS) UNTIL SYMPTOMS IMPROVE. AVOID FATTY, SPICY, GREASY FLUIDS. TAKE BENTYL EVERY 6 HOURS NEEDED FOR ABDOMINAL CRAMPING. TAKE ZOFRAN NEEDED FOR NAUSEA. RETURN TO THE EMERGENCY DEPARTMENT IF YOU DEVELOP: SEVERE ABDOMINAL PAIN/SWELLING, BLOODY/BLACK STOOLS, HIGH FEVER SHAKING/CHILLS, SIGNS OF DEHYDRATION (DIZZINESS, VERY LITTLE URINE, DRY MOUTH, FAINTING) OR VOMITING NC FROM KEEPING FLUIDS DOWN. SEE YOUR PRIMARY CARE PHYSICIAN WITH THE NEXT 3-5 DAYS IF SYMPTOMS DO NOT IMPROVE. Referrals: JAMES TORRES (PCP) Time of Disposition: 22:26 MEGA TORRES NP Jan 16, 2025 20:26
--- NOTE | 2025-01-16 20:26 | NUR ---
UA CUP PROVIDED
--- NOTE | 2025-01-16 20:36 | EKG ---
[facility] Test Date: 2025-01-16 Test Time: 20:30:13 Pat Name: ROGELIO HANEY Department: [facility] Room: Gender: M Die Engraver: [id number] : 2005 Requested By: MEGA TORRES Order Number: [id number] Reading MD: Araseli Waggoner Measurements Intervals [place] Rate: 108 P: 52 [place]: 126 QRS: 62 QRSD: 82 T: 36 QT: 320 QTc: 429 Interpretive Statements Sinus tachycardia Compared to ECG 07/18/2024 17:37:59 Sinus rhythm no longer present ST (T wave) deviation no longer present Electronically Signed On 01-19-2025 12:39:23 CDT by Araseli Waggoner Please click the below link to view image of tracing.
--- NOTE | 2025-01-16 20:43 | NUR ---
PT CARE ASSUMED AT THIS TIME
--- NOTE | 2025-01-16 20:44 | NUR ---
REPORT TO GERALDO LEE
[2025-01-16 20:46] LABS: IMMATURE GRANULOCYTE ABSOLUTE 0.07 K/uL (0-1); NUCLEATED RED BLOOD CELLS 0.0 % (0.0-0.19); PLATELET COUNT (AUTO) 299 K/uL (130-400); RED BLOOD CELL COUNT(AUTO) 5.26 MIL/uL (4.50-6.20); RED CELL DISTRIBUTION WIDTH 12.4 % (11.0-15.5); WHITE BLOOD COUNT (AUTO) 9.6 K/uL (4.8-10.8)
[2025-01-16 20:48] LABS: APPEARANCE,URINE CLEAR (CLEAR); GLUCOSE, URINE (UA) NEGATIVE (NEGATIVE); LEUKOCYTE ESTERASE ,URINE NEGATIVE Leu/uL (NEGATIVE); NITRATE,URINE NEGATIVE (NEGATIVE); OCCULT BLOOD,URINE NEGATIVE (NEGATIVE)
--- NOTE | 2025-01-16 20:55 | NUR ---
BLANKET PROVIDED TO PT AND FAMILY MEMBER
[2025-01-16 20:56] LABS: CREATININE 1.1 mg/dL (0.5-1.3); GLOMERULAR FILTR. RATE CALC 98.0 mL/min (>90); GLUCOSE,RANDOM 115.0 mg/dL (70-105); SODIUM SERUM 137.0 mmol/L (136-145); UREA NITROGEN, BLOOD 13.0 mg/dL (7-18)
[2025-01-16 21:02] LABS: ERYTHROCYTE SEDIMENTATION RATE 5 MM/HR (0-15)
[2025-01-16 21:03] LABS: ADD UA MICROSCOPIC NO
[2025-01-16 21:08] LABS: ASPARTATE AMINOTRANSFERASE 16.0 U/L (10-37); PHOSPHORUS 4.3 mg/dL (2.5-4.9); TOTAL PROTEIN, SERUM 7.8 g/dL (6.0-8.3)
[2025-01-16] MEDS: DICYCLOMINE 20MG (10MG/ML) AMP IM ONE (21:11)
[2025-01-16] MEDS: 0.9%NACL 1000ML 1,000 ML IV ONE (21:12)
--- NOTE | 2025-01-16 21:20 | NUR ---
GLUCOSE BEDSIDE CHECK DONE AT THIS TIME. CLIFTON AYOUB NOTIFIED.
[2025-01-16] MEDS ORDERED: DICY10 PO (22:24)
[2025-01-16 22:37] VITALS: BP 118/60; PULSE 80; RESP 16; TEMP 98.2; O2SAT 98
== END 2025-01-16 22:40 | disposition home or self-care (01) ==
LOC: EDH 20:16
DX: R19.7 Diarrhea, unspecified (principal); Z79.899 Other long term (current) drug therapy; Z98.890 Other specified postprocedural states
CPT/HCPCS: 99284; 96374; 96361; 84443; 80076; 83735; 84100; 80048; 85025; 85651; 82948 ×2; 81003; 36415; 93005; 96372; J7030; J2405; J0500

== ENCOUNTER 2025-01-18 14:15 | Emergency (ER) | payer BC ==
[~2025-01-18] VITALS: Ht 165.1 cm; Wt 86.2 kg
[~2025-01-18 14:15] MED LIST changes: +DICY10 PO
[2025-01-18 15:20] LABS: IMMATURE GRANULOCYTE ABSOLUTE 0.07 K/uL (0-1); NUCLEATED RED BLOOD CELLS 0.0 % (0.0-0.19); PLATELET COUNT (AUTO) 290 K/uL (130-400); RED BLOOD CELL COUNT(AUTO) 5.41 MIL/uL (4.50-6.20); RED CELL DISTRIBUTION WIDTH 12.4 % (11.0-15.5); WHITE BLOOD COUNT (AUTO) 8.7 K/uL (4.8-10.8)
[2025-01-18 15:23] LABS: CREATININE 0.9 mg/dL (0.5-1.3); GLOMERULAR FILTR. RATE CALC 125.0 mL/min (>90); GLUCOSE,RANDOM 107.0 mg/dL (70-105); SODIUM SERUM 136.0 mmol/L (136-145); UREA NITROGEN, BLOOD 10.0 mg/dL (7-18)
[2025-01-18 15:37] LABS: APPEARANCE,URINE CLEAR (CLEAR); GLUCOSE, URINE (UA) NEGATIVE (NEGATIVE); LEUKOCYTE ESTERASE ,URINE NEGATIVE Leu/uL (NEGATIVE); NITRATE,URINE NEGATIVE (NEGATIVE); OCCULT BLOOD,URINE NEGATIVE (NEGATIVE); OTHER CASTS, URINE 1 /LPF (None Seen)
--- NOTE | 2025-01-18 16:11 | ERN ---
General Chief Complaint: Diarrhea Stated Complaint: DIARRHEA Time Seen by MD: 14:19 Source: patient History of Present Illness Initial Comments Patient is a 19-year-old male coming in complaining of diarrhea. Per patient this has been ongoing for several months. Patient will be referred to wind field manager by PCP the patient states that he came in because he felt as if he was given two many IV fluids a couple of weeks ago. Allergies: Coded Allergies: No Known Drug Allergies (Unverified Allergy, Unknown, 10/26/19) Home Meds Active Scripts Ondansetron (Ondansetron Odt) 4 Mg Tab.rapdis, 4 MG PO Q6HPRN PRN for nausea, #15 TAB 0 Refills Prov:MEGA TORRES NP 01/16/25 Dicyclomine HCl (Bentyl) 10 Mg Cap, 1 CAP PO Q6HPRN PRN for irritable bowel symptoms, #15 CAP 0 Refills Prov:MEGA TORRES NP 01/16/25 Lactobacillus Acidophilus (Acidophilus Probiotic) 500 Million Cell Capsule, 1 CAP PO DAILY for 30 Days, #30 CAP 0 Refills Prov:HAYDER HE MD 01/07/25 Dicyclomine HCl (Bentyl) 20 Mg Tab, 20 MG PO q12 hours PRN for abdominal pain/cramping, #10 TAB 0 Refills Prov:MEGA TORRES NP 11/04/24 Ondansetron (Ondansetron Odt) 8 Mg Tab.rapdis, 4 MG PO Q6H for nausea/vomiting for 3 Days, #12 TAB 0 Refills Prov:MEGA TORRES NP 11/04/24 Famotidine (Famotidine) 20 Mg Tablet, 1 TAB PO BID for 30 Days, #60 TAB 0 Refills Prov:MEGA TORRES NP 09/26/24 Ondansetron (Ondansetron Odt) 4 Mg Tab.rapdis, 4 MG PO Q6HPRN PRN for nausea, #15 TAB 0 Refills Prov:MEGA TORRES NP 09/26/24 Pantoprazole Sodium (Protonix) 40 Mg Ectab, 1 TAB PO DAILY for 30 Days, #30 TAB 0 Refills Prov:HAYDER HE MD 05/18/24 Famotidine (Pepcid) 20 Mg Tablet, 20 MG PO DAILY for 5 Days, #5 TAB Prov:RAMON SAN PA 02/16/24 Ondansetron (Ondansetron Odt) 4 Mg Tab.rapdis, 4 MG PO BID for 7 Days, #14 TAB Prov:RAMON SAN 02/16/24 Hydroxyzine HCl (Hydroxyzine HCl) 25 Mg Tablet, 25 MG PO BID for anxiety, #15 TAB Prov:HERMELINDA PATEL PAC 11/24/22 Past Medical History Past Medical History: Other Medical History Other: HYPOGLYCEMIA Past Surgical History: Other Surgical History Other: CYST REMOVAL TO RIGHT SHOULDER. Family History Family History: DM Social History Social History: ETOH ROS Dictation CONSTITUTIONAL: No chills, no fever, no weakness, no diaphoresis, no malaise. HEAD/FACE: No signs of trauma. EENT: No eye pain, no blurred vision, no tearing, no double vision, no ear pain, no ear discharge, no nose pain, no nasal congestion, no throat pain, no throat swelling, no mouth pain. RESPIRATORY: No cough, no orthopnea, no SOB, no stridor, no wheezing. CARDIOVASCULAR: No chest pain, no edema, no palpitations, no syncope. GASTROINTESTINAL/ABDOMINAL: No abdominal pain, no constipation, no diarrhea, no nausea, no vomiting. GENITOURINARY: No abnormal discharge, no dysuria, no frequent urination, no hematuria. No complaints of pain in the genitals. MUSCULOSKELETAL: No back pain, no gout, no joint pain, no joint swelling, no muscle pain, no muscle stiffness, no neck pain. INTEGUMENTARY: No change in color, no change in hair/nails, no dryness, no lesion, no lumps, no rash. NEUROLOGICAL/PSYCH: No anxiety, not depressed, no emotional problem, no headache, no numbness, no pre-existing deficit, no history of seizures, no tremors, no weakness. HEMATOLOGIC/LYMPHATIC: Not anemic, no history of blood clots, no apparent bleeding, no bruising, glands not swollen. All Systems Negative, Except as Noted. Physical Exam Physical Exam Dictation VITAL SIGNS: Reviewed. GENERAL APPEARANCE: Alert, oriented x3, no acute distress, obese. HEAD AND FACE: Non-traumatic. EYES: PERRL, pink conjunctivas, eyelid no trauma, anterior chamber clear. EARS: Pinnas intact and no signs of trauma or erythema. Ear canals clear and no discharge. TMs no erythema. NOSE: No discharge, no bleeding. OROPHARYNX: Mouth normal, teeth no caries, tongue pink. Pharynx clear, no erythema. Tonsils no exudates, no abscesses noted. Mucous membrane moist. NECK: Supple, non-tender, no thyromegaly, no masses, no JVD, no bruits. BREAST: Deferred. CHEST: No tenderness, no crepitus, no paradoxical movement, no retractions. LUNGS: Clear, well-ventilated, symmetric, no rales, no wheezing, no rhonchi, no stridor, good breath sounds bilaterally. HEART: Regular rate, regular rhythm, no murmur, no gallops. VASCULAR: No peripheral edema. ABDOMEN: Soft, positive bowel sounds, nondistended, no guarding, nontender, no rebound, no masses no hepatomegaly, no splenomegaly, no Ngo's sign, no hernias. RECTAL: Deferred. GENITAL: Deferred. NEUROLOGICAL: Normal speech, gross motor function intact, gross sensory function intact. MUSCULOSKELETAL: Neck nontender, full range of motion, back nontender, full range of motion. EXTREMITIES: Nontender, full range of motion. SKIN: Color pink, dry, no turgor, no rash, no lacerations, no abrasions, no contusions. LYMPHATICS: Deferred. Results Laboratory and Microbiology Lab and Micro Result Laboratory Tests Test 01/18/25 15:04 01/18/25 15:10 White Blood Count 8.7 K/uL (4.8-10.8) Red Blood Count 5.41 MIL/uL (4.50-6.20) Hemoglobin 15.7 g/dL (14.0-18.0) Hematocrit 47.0 % (42-54) Mean Corpuscular Volume 86.9 fL (80-100) Mean Corpuscular Hemoglobin 29.0 pg (27.0-33.0) Mean Corpuscular Hemoglobin Concent 33.4 g/dL (32.0-36.0) Red Cell Distribution Width 12.4 % (11.0-15.5) Platelet Count 290 K/uL (130-400) Mean Platelet Volume 10.5 fL (7.5-10.5) Immature Granulocyte % (Auto) 0.8 % (0-1) Neutrophils (%) (Auto) 73.7 % (40.0-77.0) Lymphocytes (%) (Auto) 17.0 % (21.0-51.0) L Monocytes (%) (Auto) 5.7 % (3.0-13.0) Eosinophils (%) (Auto) 2.0 % (0.0-8.0) Basophils (%) (Auto) 0.8 % (0.0-5.0) Neutrophils # (Auto) 6.4 K/uL (1.8-7.7) Lymphocytes # (Auto) 1.5 K/uL (1.0-4.8) Monocytes # (Auto) 0.5 K/uL (0.1-1.0) Eosinophils # (Auto) 0.17 K/uL (0.00-0.70) Basophils # (Auto) 0.07 K/uL (0.00-0.20) Absolute Immature Granulocyte (auto 0.07 K/uL (0-1) Nucleated Red Blood Cells 0.0 % (0.0-0.19) Sodium Level 136 mmol/L (136-145) Potassium Level 3.8 mmol/L (3.5-5.1) Chloride Level 100 mmol/L (101-111) L Carbon Dioxide Level 30 mmol/L (21-32) Blood Urea Nitrogen 10 mg/dL (7-18) Creatinine 0.9 mg/dL (0.5-1.3) Glomerular Filtration Rate Calc 125 mL/min (>90) Random Glucose 107 mg/dL (70-105) H Total Calcium 9.3 mg/dL (8.5-10.1) Urine Color LIGHT-YELLOW (YELLOW) Urine Appearance CLEAR (CLEAR) Urine pH 7.0 (5.0-8.0) Urine Specific [place] 1.014 (1.001-1.031) Urine Protein NEGATIVE mg/dL (NEGATIVE) Urine Glucose (UA) NEGATIVE mg/dL (NEGATIVE) Urine Ketones NEGATIVE mg/dL (NEGATIVE) Urine Occult Blood NEGATIVE (NEGATIVE) Urine Nitrate NEGATIVE (NEGATIVE) Urine Bilirubin NEGATIVE mg/dL (NEGATIVE) Urine Urobilinogen 0.2 mg/dL (0.2-1.0) Urine Leukocyte Esterase NEGATIVE Andre/uL Urine RBC 0-1 /HPF (0-1) Urine WBC 0-1 /HPF (0-1) Urine Amorphous Crystals (Auto) RARE /LPF (None Seen) Urine Bacteria RARE /HPF (None Seen) Urine Other Casts 1 /LPF (None Seen) Labs Reviewed?: Yes MDM MDM: Differential diagnosis: Chronic diarrhea, dehydration, viral gastroenteritis, wellness exam Rationale: Tests considered and ordered secondary to shared decision making include: Previous outside records reviewed: Old ER visits. Risk of complication and/or morbidity or mortality of patient management: None Medications-Per medication reconciliation Need for hospitalization: Patient does not meet criteria for hospitalization. Need for emergency major/minor surgery: No Patient is a 19-year-old male coming in complaining of diarrhea for several months. He states that he has a pending follow up with a wind field manager but felt as if he was overly hydrated so he came in for further evaluation. Laboratory workup within normal limits I did advised him appropriate follow up with PCP and/or wind field manager as indicated in the past. ED Course Orders Procedure Category Date Status Time Cbc With Differential LAB 01/18/25 Complete 14:44 Basic Metabolic Panel LAB 01/18/25 Complete 14:44 Urinalysis LAB 01/18/25 Complete W/Microscopic 14:44 Vital Signs Date Time Temp Pulse Resp B/P (MAP) Pulse Ox O2 Delivery O2 Flow Rate FiO2 01/18/25 14:16 98.4 107 18 155/82 97 Room Air DX & DISP Disposition: Discharge Departure Impression: Primary Impression: Anxiety Additional Impression: Viral gastroenteritis Condition: Stable Additional Instructions: FOLLOW-UP WITH PRIMARY CARE PROVIDER IN 1 TO 2 DAYS. TAKE MEDICATIONS DIRECTED HERE IN THE EMERGENCY ROOM. OKAY TO CONTINUE HOME MEDICATIONS UNLESS OTHERWISE DISCUSSED DURING YOUR VISIT IN THE EMERGENCY ROOM TODAY. RETURN TO YOUR NEAREST EMERGENCY ROOM IF SYMPTOMS WORSEN OR IF THERE IS NO IMPROVEMENT. CALL 911 IF YOU NEED IMMEDIATE ASSISTANCE. TAKE TYLENOL [id number] NEEDED AND IF NO CONTRAINDICATIONS ARE PRESENT. INCREASE ORAL HYDRATION. A WOUND CULTURE OR URINE CULTURE WAS ORDERED HERE IN THE EMERGENCY ROOM DEPARTMENT PLEASE FOLLOW-UP WITH PRIMARY CARE PROVIDER AND ADVISE THEM TO GET REPORTS FROM OUR FACILITY. IF YOU HAD ANY DONNA WRAP/SPLINTS THAT WERE APPLIED HERE, PLEASE DO NOT REMOVE THEM UNTIL YOU SEE YOUR PRIMARY CARE OR SPECIALTY. Referrals: Referrals: JAMES WALDRON (PCP) Time of Disposition: 16:11 HAYDER HE MD Jan 18, 2025 16:11
[2025-01-18 16:37] VITALS: BP 150/80; PULSE 102; RESP 16; TEMP 98.1; O2SAT 98
== END 2025-01-18 16:47 | disposition home or self-care (01) ==
LOC: EDH 14:15
DX: F41.9 Anxiety disorder, unspecified (principal); A08.4 Viral intestinal infection, unspecified; Z79.899 Other long term (current) drug therapy
CPT/HCPCS: 36415; 80048; 81001; 85025; 99283

== ENCOUNTER 2025-01-27 22:32 | Emergency (ER) | payer BC ==
[~2025-01-27] VITALS: Ht 167.6 cm; Wt 79.4 kg
[2025-01-27 22:33] VITALS: TEMP 98
[2025-01-27] MEDS: 0.9%NACL 1000ML 1,000 ML IV ONE (23:41)
[2025-01-27 23:49] LABS: IMMATURE GRANULOCYTE ABSOLUTE 0.05 K/uL (0-1); NUCLEATED RED BLOOD CELLS 0.0 % (0.0-0.19); PLATELET COUNT (AUTO) 278 K/uL (130-400); RED BLOOD CELL COUNT(AUTO) 5.39 MIL/uL (4.50-6.20); RED CELL DISTRIBUTION WIDTH 12.4 % (11.0-15.5); WHITE BLOOD COUNT (AUTO) 9.3 K/uL (4.8-10.8)
--- NOTE | 2025-01-27 23:51 | ERN ---
ED Note History of Present Illness Stated Complaint: VOMITING X 4 DAYS Chief Complaint: Nausea,Vomiting,Diarrhea Time Seen by MD: 22:43 Time Seen by Midlevel: 22:44 Dictation: 19-year-old male who presents to the emergency department due to report of h aving body aches, chills, nausea and vomiting that began 3 days ago. He denies having any confirmed fever. Patient denies having any abdominal pain or diarrhea associated with this. There is no report of having had contact with anybody with similar symptoms. He states that as of last night he had 3 episodes of vomiting. The patient states that he is mildly concerned about gett ing dehydrated. However, he states that his last void was 3 hours prior to arrival. Upon initial evaluation, the patient presents in no acute distress. Allergies: Coded Allergies: No Known Drug Allergies (Unverified Allergy, Unknown, 10/26/19) Emergency Care MEDICAL OFFICE ASSISTANT INSTRUCTOR: None Home Meds Active Scripts Ondansetron (Ondansetron Odt) 4 Mg Tab.rapdis, 4 MG PO Q6HPRN PRN for nausea, #15 TAB 0 Refills Prov:MEGA TORRES NP 01/16/25 Dicyclomine HCl (Bentyl) 10 Mg Cap, 1 CAP PO Q6HPRN PRN for irritable bowel symptoms, #15 CAP 0 Refills Prov:MEGA TORRES NP 01/16/25 Lactobacillus Acidophilus (Acidophilus Probiotic) 500 Million Cell Capsule, 1 CAP PO DAILY for 30 Days, #30 CAP 0 Refills Prov:HAYDER HE MD 01/07/25 Dicyclomine HCl (Bentyl) 20 Mg Tab, 20 MG PO q12 hours PRN for abdominal pain/cramping, #10 TAB 0 Refills Prov:MEGA TORRES NP 11/04/24 Ondansetron (Ondansetron Odt) 8 Mg Tab.rapdis, 4 MG PO Q6H for nausea/vomiting for 3 Days, #12 TAB 0 Refills Prov:MEGA TORRES NP 11/04/24 Famotidine (Famotidine) 20 Mg Tablet, 1 TAB PO BID for 30 Days, #60 TAB 0 Refills Prov:MEGA TORRES NP 09/26/24 Ondansetron (Ondansetron Odt) 4 Mg Tab.rapdis, 4 MG PO Q6HPRN PRN for nausea, #15 TAB 0 Refills Prov:MEGA TORRES WATER SAFETY INSTRUCTOR 09/26/24 Pantoprazole Sodium (Protonix) 40 Mg Ectab, 1 TAB PO DAILY for 30 Days, #30 TAB 0 Refills Prov:HAYDER HE MD 05/18/24 Famotidine (Pepcid) 20 Mg Tablet, 20 MG PO DAILY for 5 Days, #5 TAB Prov:RAMON SAN 02/16/24 Ondansetron (Ondansetron Odt) 4 Mg Tab.rapdis, 4 MG PO BID for 7 Days, #14 TAB Prov:RAMON SAN 02/16/24 Hydroxyzine HCl (Hydroxyzine HCl) 25 Mg Tablet, 25 MG PO BID for anxiety, #15 TAB Prov:HERMELINDA PATEL PAC 11/24/22 Past Medical History Past Medical History: Other Additional Past Medical Hx: HYPOGLYCEMIA Surgical History: Other Surgical History Other: CYST REMOVAL TO RIGHT SHOULDER. Family History: DM Social History: ETOH Review of System Dictation Constitutional: Chills Abdomen/GI: Nausea, vomiting Initial Vital Sign VS Vital Signs Date Time Temp Pulse Resp B/P (MAP) Pulse Ox O2 Delivery O2 Flow Rate FiO2 01/27/25 22:33 98.1 92 16 126/82 97 Room Air 0 01/27/25 22:33 21 Physical Exam Dictation General: awake, alert, NAD Head/Face: Normocephalic, atraumatic Eyes: PERRL, EOMI ENT: Oral mucosa dry Neck: Trachea midline, supple Cardiovascular: RRR, no edema Respiratory: Symmetrical, non-labored Abdomen: Soft, non-tender, non-distended, no guarding. Skin: Warm, dry, good turgor, no rash MS/Extremity: Pulses equal, no cyanosis, neurovascular intact, FROM Neuro: COAx4, GCS 15, steady gait, Psych: Normal behavior, mood, and affect normal Results (Laboratory/Radiology) Laboratory/Radiology Laboratory Tests Test 01/27/25 23:37 01/27/25 23:46 White Blood Count 9.3 K/uL (4.8-10.8) Red Blood Count 5.39 MIL/uL (4.50-6.20) Hemoglobin 15.6 g/dL (14.0-18.0) Hematocrit 46.8 % (42-54) Mean Corpuscular Volume 86.8 fL (80-100) Mean Corpuscular Hemoglobin 28.9 pg (27.0-33.0) Mean Corpuscular Hemoglobin Concent 33.3 g/dL (32.0-36.0) Red Cell Distribution Width 12.4 % (11.0-15.5) Platelet Count 278 K/uL (130-400) Mean Platelet Volume 10.6 fL (7.5-10.5) H Immature Granulocyte % (Auto) 0.5 % (0-1) Neutrophils (%) (Auto) 66.4 % (40.0-77.0) Lymphocytes (%) (Auto) 21.3 % (21.0-51.0) Monocytes (%) (Auto) 6.5 % (3.0-13.0) Eosinophils (%) (Auto) 4.3 % (0.0-8.0) Basophils (%) (Auto) 1.0 % (0.0-5.0) Neutrophils # (Auto) 6.2 K/uL (1.8-7.7) Lymphocytes # (Auto) 2.0 K/uL (1.0-4.8) Monocytes # (Auto) 0.6 K/uL (0.1-1.0) Eosinophils # (Auto) 0.40 K/uL (0.00-0.70) Basophils # (Auto) 0.09 K/uL (0.00-0.20) Absolute Immature Granulocyte (auto 0.05 K/uL (0-1) Nucleated Red Blood Cells 0.0 % (0.0-0.19) Sodium Level 137 mmol/L (136-145) Potassium Level 4.6 mmol/L (3.5-5.1) Chloride Level 100 mmol/L (101-111) L Carbon Dioxide Level 30 mmol/L (21-32) Blood Urea Nitrogen 6 mg/dL (7-18) L Creatinine 0.8 mg/dL (0.5-1.3) Glomerular Filtration Rate Calc 129 mL/min (>90) Random Glucose 95 mg/dL (70-105) Total Calcium 9.7 mg/dL (8.5-10.1) Total Bilirubin 0.3 mg/dL (0.2-1.0) Aspartate Amino Transf (AST/SGOT) 34 U/L (10-37) Alanine Aminotransferase (ALT/SGPT) 51 U/L (12-78) Alkaline Phosphatase 118 U/L (50-136) Total Protein 8.6 g/dL (6.0-8.3) H Albumin 4.1 g/dL (3.5-5.0) Lipase 15 U/L (16-77) L Influenza Type A Antigen Negative For Type A Influenza Type B Antigen Negative For Type B Labs Reviewed?: Yes ED Course ED Course Orders Procedure Category Date Status Time Cbc With Differential LAB 01/27/25 Complete 22:59 Comprehensive LAB 01/27/25 Complete Metabolic Panel 22:59 Lipase LAB 01/27/25 Complete 22:59 Influenza Type A & B, LAB 01/27/25 Complete Rapid 22:59 Saline Lock Iv CPOE 01/27/25 Transmitted 22:59 Ondansetron 4mg Inj PHA 01/27/25 Complete (Zofran 4mg Inj) 23:00 0.9%Nacl 1000ml (Ns PHA 01/27/25 Complete 1000ml) 23:00 Current Medications Medications (Trade) Dose Ordered Sig/Braulio Route PRN Reason Start Time Stop Time Status Last Admin Dose Admin Ondansetron HCl (zoFRAN 4MG INJ) 4 mg ONCE ONCE IVP 01/27/25 23:00 01/27/25 23:06 DC 01/27/25 23:41 Sodium Chloride 1,000 ml @ 0 mls/hr ONCE ONCE IV 01/27/25 23:00 01/27/25 23:06 DC 01/27/25 23:41 Vital Signs Date Time Temp Pulse Resp B/P (MAP) Pulse Ox O2 Delivery O2 Flow Rate FiO2 01/27/25 22:33 98.1 92 16 126/82 97 Room Air* 0 21 01/27/25 22:33 98.1 92 16 126/82 97 Room Air 0 Medical Decision Making MDM MDM: Differential diagnosis: Viral gastroenteritis, electrolyte imbalance, acute dehydration. Rationale: Tests considered and ordered secondary to shared decision making include: Previous outside records reviewed: Old ER visits. Risk of complication and/or morbidity or mortality of patient management: None Medications-Per medication reconciliation Need for hospitalization: Patient does not meet criteria for hospitalization. Need for emergency major/minor surgery: No There are no social concerns with this patient. Prescription drug management Prescriptions will include symptomatic care Patient's prior external medical records from other ER visits were reviewed by me as indicated. Prior testing and results from previous visits were reviewed. Prior tests were taken into account with medical decision making and resource utilization, independent historian/historians were used to obtain complete medical history. I independently interpreted the test that were performed, results were reviewed by me and considered findings on radiology if ordered. Medical management and examination interpretation discussions were had by me with other qualified healthcare professionals as indicated for the patient's care. DX & DISP Disposition: Discharge Departure Impression: Primary Impression: Viral gastroenteritis Condition: Stable Scripts Ondansetron (Ondansetron Odt) 4 Mg Tab.rapdis 4 MG PO Q8HPRN PRN for nausea, #16 TAB 0 Refills Prov: HERBIE VAN 01/28/25 Referrals: JAMES WALDRON (PCP) Time of Disposition: 00:18 HERBIE VAN Jan 27, 2025 23:51
[2025-01-27 23:59] LABS: CREATININE 0.8 mg/dL (0.5-1.3); GLOMERULAR FILTR. RATE CALC 129.0 mL/min (>90); GLUCOSE,RANDOM 95.0 mg/dL (70-105); SODIUM SERUM 137.0 mmol/L (136-145); UREA NITROGEN, BLOOD 6.0 mg/dL (7-18)
[2025-01-28 00:03] LABS: ASPARTATE AMINOTRANSFERASE 34.0 U/L (10-37); TOTAL PROTEIN, SERUM 8.6 g/dL (6.0-8.3)
[2025-01-28 00:11] LABS: INFLUENZA TYPE A Negative For Type A (NEGATIVE); INFLUENZA TYPE B Negative For Type B (NEGATIVE)
[2025-01-28] MEDS ORDERED: ONDA-243 PO (00:17)
[2025-01-28 00:29] VITALS: BP 134/75; PULSE 87; RESP 16; O2SAT 97
== END 2025-01-28 00:32 | disposition home or self-care (01) ==
LOC: EDH 22:32
DX: A08.4 Viral intestinal infection, unspecified (principal); Z79.899 Other long term (current) drug therapy; Z98.890 Other specified postprocedural states
CPT/HCPCS: 99284; 96374; 96361; 80053; 83690; 85025; 87804 ×2; 36415; J7030; J2405

== ENCOUNTER 2025-01-29 15:11 | Emergency (ER) | payer BC ==
[~2025-01-29] VITALS: Ht 165.1 cm; Wt 87.5 kg
[2025-01-29] MEDS: MAG/ALUM/SIMETH 30 ML UDCUP PO ONE (15:48)
[2025-01-29] MEDS: LIDOCAINE HCL 2% VISCOUS 15 ML UDCUP PO ONE (15:48)
[2025-01-29 16:05] LABS: IMMATURE GRANULOCYTE ABSOLUTE 0.05 K/uL (0-1); NUCLEATED RED BLOOD CELLS 0.0 % (0.0-0.19); PLATELET COUNT (AUTO) 291 K/uL (130-400); RED BLOOD CELL COUNT(AUTO) 5.35 MIL/uL (4.50-6.20); RED CELL DISTRIBUTION WIDTH 12.4 % (11.0-15.5); WHITE BLOOD COUNT (AUTO) 9.9 K/uL (4.8-10.8)
[2025-01-29 16:06] LABS: APPEARANCE,URINE CLEAR (CLEAR); GLUCOSE, URINE (UA) NEGATIVE (NEGATIVE); LEUKOCYTE ESTERASE ,URINE NEGATIVE Leu/uL (NEGATIVE); NITRATE,URINE NEGATIVE (NEGATIVE); OCCULT BLOOD,URINE NEGATIVE (NEGATIVE)
[2025-01-29 16:07] LABS: ADD UA MICROSCOPIC NO
[2025-01-29 16:22] LABS: CREATININE 0.9 mg/dL (0.5-1.3); GLOMERULAR FILTR. RATE CALC 125.0 mL/min (>90); GLUCOSE,RANDOM 84.0 mg/dL (70-105); SODIUM SERUM 138.0 mmol/L (136-145); UREA NITROGEN, BLOOD 9.0 mg/dL (7-18)
[2025-01-29 16:27] LABS: ASPARTATE AMINOTRANSFERASE 18.0 U/L (10-37); TOTAL PROTEIN, SERUM 8.2 g/dL (6.0-8.3)
[2025-01-29 16:30] VITALS: BP 124/60; PULSE 86; RESP 19; TEMP 98.6
--- NOTE | 2025-01-29 16:32 | ERN ---
General Chief Complaint: Abdominal Pain Stated Complaint: UPSET STOMACH/ WEAKNESS Time Seen by MD: 15:15 Source: patient History of Present Illness Initial Comments PATIENT IS A 19-YEAR-OLD MALE COMING IN COMPLAINING OF REFLUX. PER PATIENT HE HAS BEEN HAVING ABDOMINAL DISCOMFORT FOR A COUPLE OF DAYS. HE ALSO STATES THAT HE HAS BEEN MULTIPLE ER VISITS FOR THE SAME THING HAS NOT FOLLOWED UP WITH GI YET. Allergies: Coded Allergies: No Known Drug Allergies (Unverified Allergy, Unknown, 10/26/19) Home Meds Active Scripts Ondansetron (Ondansetron Odt) 4 Mg Tab.rapdis, 4 MG PO Q8HPRN PRN for nausea, #16 TAB 0 Refills Prov:HERBIE VAN 01/28/25 Ondansetron (Ondansetron Odt) 4 Mg Tab.rapdis, 4 MG PO Q6HPRN PRN for nausea, #15 TAB 0 Refills Prov:MEGA TORRES NP 01/16/25 Dicyclomine HCl (Bentyl) 10 Mg Cap, 1 CAP PO Q6HPRN PRN for irritable bowel symptoms, #15 CAP 0 Refills Prov:MEGA TORRES NP 01/16/25 Lactobacillus Acidophilus (Acidophilus Probiotic) 500 Million Cell Capsule, 1 CAP PO DAILY for 30 Days, #30 CAP 0 Refills Prov:HAYDER HE MD 01/07/25 Dicyclomine HCl (Bentyl) 20 Mg Tab, 20 MG PO q12 hours PRN for abdominal pain/cramping, #10 TAB 0 Refills Prov:MEGA TORRES NP 11/04/24 Ondansetron (Ondansetron Odt) 8 Mg Tab.rapdis, 4 MG PO Q6H for nausea/vomiting for 3 Days, #12 TAB 0 Refills Prov:MEGA TORRES NP 11/04/24 Famotidine (Famotidine) 20 Mg Tablet, 1 TAB PO BID for 30 Days, #60 TAB 0 Refills Prov:MEGA TORRES NP 09/26/24 Ondansetron (Ondansetron Odt) 4 Mg Tab.rapdis, 4 MG PO Q6HPRN PRN for nausea, #15 TAB 0 Refills Prov:MEGA TORRES NP 09/26/24 Pantoprazole Sodium (Protonix) 40 Mg Ectab, 1 TAB PO DAILY for 30 Days, #30 TAB 0 Refills Prov:HAYDER HE MD 05/18/24 Famotidine (Pepcid) 20 Mg Tablet, 20 MG PO DAILY for 5 Days, #5 TAB Prov:RAMON SAN 02/16/24 Ondansetron (Ondansetron Odt) 4 Mg Tab.rapdis, 4 MG PO BID for 7 Days, #14 TAB Prov:RAMON SAN 02/16/24 Hydroxyzine HCl (Hydroxyzine HCl) 25 Mg Tablet, 25 MG PO BID for anxiety, #15 TAB Prov:HERMELINDA PATEL 11/24/22 Past Medical History Past Medical History: GERD Medical History Other: HYPOGLYCEMIA Past Surgical History: None Surgical History Other: CYST REMOVAL TO RIGHT SHOULDER. Family History Family History: DM Social History Social History: ETOH ROS Dictation CONSTITUTIONAL: NO CHILLS, NO FEVER, NO WEAKNESS, NO DIAPHORESIS, NO MALAISE. HEAD/FACE: NO SIGNS OF TRAUMA. EENT: NO EYE PAIN, NO BLURRED VISION, NO TEARING, NO DOUBLE VISION, NO EAR PAIN, NO EAR DISCHARGE, NO NOSE PAIN, NO NASAL CONGESTION, NO THROAT PAIN, NO THROAT SWELLING, NO MOUTH PAIN. RESPIRATORY: NO COUGH, NO ORTHOPNEA, NO SOB, NO STRIDOR, NO WHEEZING. CARDIOVASCULAR: NO CHEST PAIN, NO EDEMA, NO PALPITATIONS, NO SYNCOPE. GASTROINTESTINAL/ABDOMINAL: ABDOMINAL PAIN, NO CONSTIPATION, NO DIARRHEA, NO NAUSEA, NO VOMITING. GENITOURINARY: NO ABNORMAL DISCHARGE, NO DYSURIA, NO FREQUENT URINATION, NO HEMATURIA. NO COMPLAINTS OF PAIN IN THE GENITALS. MUSCULOSKELETAL: NO BACK PAIN, NO GOUT, NO JOINT PAIN, NO JOINT SWELLING, NO MUSCLE PAIN, NO MUSCLE STIFFNESS, NO NECK PAIN. INTEGUMENTARY: NO CHANGE IN COLOR, NO CHANGE IN HAIR/NAILS, NO DRYNESS, NO LESION, NO LUMPS, NO RASH. NEUROLOGICAL/PSYCH: NO ANXIETY, NOT DEPRESSED, NO EMOTIONAL PROBLEM, NO HEADACHE, NO NUMBNESS, NO PRE-EXISTING DEFICIT, NO HISTORY OF SEIZURES, NO TREMORS, NO WEAKNESS. HEMATOLOGIC/LYMPHATIC: NOT ANEMIC, NO HISTORY OF BLOOD CLOTS, NO APPARENT BLEEDING, NO BRUISING, GLANDS NOT SWOLLEN. ALL SYSTEMS NEGATIVE, EXCEPT NOTED. Physical Exam Physical Exam Dictation VITAL SIGNS: REVIEWED. GENERAL APPEARANCE: ALERT, ORIENTED X3, NO ACUTE DISTRESS, OBESE. HEAD AND FACE: NON-TRAUMATIC. EYES: PERRL, PINK CONJUNCTIVAS, EYELID NO TRAUMA, ANTERIOR CHAMBER CLEAR. EARS: PINNAS INTACT AND NO SIGNS OF TRAUMA OR ERYTHEMA. EAR CANALS CLEAR AND NO DISCHARGE. TMS NO ERYTHEMA. NOSE: NO DISCHARGE, NO BLEEDING. OROPHARYNX: MOUTH NORMAL, TEETH NO CARIES, TONGUE PINK. PHARYNX CLEAR, NO ERYTHEMA. TONSILS NO EXUDATES, NO ABSCESSES NOTED. MUCOUS MEMBRANE MOIST. NECK: SUPPLE, NON-TENDER, NO THYROMEGALY, NO MASSES, NO JVD, NO BRUITS. BREAST: DEFERRED. CHEST: NO TENDERNESS, NO CREPITUS, NO PARADOXICAL MOVEMENT, NO RETRACTIONS. LUNGS: CLEAR, WELL-VENTILATED, SYMMETRIC, NO RALES, NO WHEEZING, NO RHONCHI, NO STRIDOR, GOOD BREATH SOUNDS BILATERALLY. HEART: REGULAR RATE, REGULAR RHYTHM, NO MURMUR, NO GALLOPS. VASCULAR: NO PERIPHERAL EDEMA. ABDOMEN: SOFT, POSITIVE BOWEL SOUNDS, NONDISTENDED, NO GUARDING, TENDER, NO REBOUND, NO MASSES NO HEPATOMEGALY, NO SPLENOMEGALY, NO DE LEON'S SIGN, NO HERNIAS. RECTAL: DEFERRED. GENITAL: DEFERRED. NEUROLOGICAL: NORMAL SPEECH, GROSS MOTOR FUNCTION INTACT, GROSS SENSORY FUNCTION INTACT. MUSCULOSKELETAL: NECK NONTENDER, FULL RANGE OF MOTION, BACK NONTENDER, FULL RANGE OF MOTION. EXTREMITIES: NONTENDER, FULL RANGE OF MOTION. SKIN: COLOR PINK, DRY, NO TURGOR, NO RASH, NO LACERATIONS, NO ABRASIONS, NO CONTUSIONS. LYMPHATICS: DEFERRED. Results Laboratory and Microbiology Lab and Micro Result Laboratory Tests Test 01/29/25 15:53 01/29/25 15:58 White Blood Count 9.9 K/uL (4.8-10.8) Red Blood Count 5.35 MIL/uL (4.50-6.20) Hemoglobin 15.7 g/dL (14.0-18.0) Hematocrit 46.8 % (42-54) Mean Corpuscular Volume 87.5 fL (80-100) Mean Corpuscular Hemoglobin 29.3 pg (27.0-33.0) Mean Corpuscular Hemoglobin Concent 33.5 g/dL (32.0-36.0) Red Cell Distribution Width 12.4 % (11.0-15.5) Platelet Count 291 K/uL (130-400) Mean Platelet Volume 10.6 fL (7.5-10.5) H Immature Granulocyte % (Auto) 0.5 % (0-1) Neutrophils (%) (Auto) 80.3 % (40.0-77.0) H Lymphocytes (%) (Auto) 12.2 % (21.0-51.0) L Monocytes (%) (Auto) 4.7 % (3.0-13.0) Eosinophils (%) (Auto) 1.9 % (0.0-8.0) Basophils (%) (Auto) 0.4 % (0.0-5.0) Neutrophils # (Auto) 8.0 K/uL (1.8-7.7) H Lymphocytes # (Auto) 1.2 K/uL (1.0-4.8) Monocytes # (Auto) 0.5 K/uL (0.1-1.0) Eosinophils # (Auto) 0.19 K/uL (0.00-0.70) Basophils # (Auto) 0.04 K/uL (0.00-0.20) Absolute Immature Granulocyte (auto 0.05 K/uL (0-1) Nucleated Red Blood Cells 0.0 % (0.0-0.19) Sodium Level 138 mmol/L (136-145) Potassium Level 3.9 mmol/L (3.5-5.1) Chloride Level 100 mmol/L (101-111) L Carbon Dioxide Level 30 mmol/L (21-32) Blood Urea Nitrogen 9 mg/dL (7-18) Creatinine 0.9 mg/dL (0.5-1.3) Glomerular Filtration Rate Calc 125 mL/min (>90) Random Glucose 84 mg/dL (70-105) Total Calcium 9.5 mg/dL (8.5-10.1) Total Bilirubin 0.3 mg/dL (0.2-1.0) Aspartate Amino Transf (AST/SGOT) 18 U/L (10-37) Alanine Aminotransferase (ALT/SGPT) 50 U/L (12-78) Alkaline Phosphatase 112 U/L (50-136) Total Protein 8.2 g/dL (6.0-8.3) Albumin 4.0 g/dL (3.5-5.0) Lipase 13 U/L (16-77) L Urine Color LIGHT-YELLOW (YELLOW) Urine Appearance CLEAR (CLEAR) Urine pH 7.0 (5.0-8.0) Urine Specific [place] 1.016 (1.001-1.031) Urine Protein NEGATIVE mg/dL (NEGATIVE) Urine Glucose (UA) NEGATIVE mg/dL (NEGATIVE) Urine Ketones NEGATIVE mg/dL (NEGATIVE) Urine Occult Blood NEGATIVE (NEGATIVE) Urine Nitrate NEGATIVE (NEGATIVE) Urine Bilirubin NEGATIVE mg/dL (NEGATIVE) Urine Urobilinogen 0.2 mg/dL (0.2-1.0) Urine Leukocyte Esterase NEGATIVE Andre/uL Labs Reviewed?: Yes MDM MDM: DIFFERENTIAL DIAGNOSIS: GERD, GASTRITIS, RATIONALE: TESTS CONSIDERED AND ORDERED SECONDARY TO SHARED DECISION MAKING INCLUDE: PREVIOUS OUTSIDE RECORDS REVIEWED: OLD ER VISITS. RISK OF COMPLICATION AND/OR MORBIDITY OR MORTALITY OF PATIENT MANAGEMENT: NONE MEDICATIONS-PER MEDICATION RECONCILIATION NEED FOR HOSPITALIZATION: PATIENT DOES NOT MEET CRITERIA FOR HOSPITALIZATION. NEED FOR EMERGENCY MAJOR/MINOR SURGERY: NO PATIENT IS A 19-YEAR-OLD MALE COMING IN COMPLAINING OF ABDOMINAL DISCOMFORT. PER PATIENT THIS HAS BEEN ON ONGOING ISSUE FOR SEVERAL MONTHS. PATIENT IS PENDI NG A GI VISIT. PATIENT HAS A DISCHARGED IN STABLE CONDITION WITH A DIAGNOSIS OF CHRONIC GASTRITIS MEDICATION WAS GIVEN FOR SYMPTOMATIC RELIEF. ED Course Orders Procedure Category Date Status Time Cbc With Differential LAB 01/29/25 Complete 15:33 Comprehensive LAB 01/29/25 Complete Metabolic Panel 15:33 Urinalysis Profile LAB 01/29/25 Complete 15:33 Lipase LAB 01/29/25 Complete 15:33 Lidocaine Hcl 2% PHA 01/29/25 Complete Viscous (Lidocaine Hcl 16:00 Mag/Alum/Simeth 30ml PHA 01/29/25 Complete (Maalox Plus 30ml) 16:00 Current Medications Medications (Trade) Dose Ordered Sig/Braulio Route PRN Reason Start Time Stop Time Status Last Admin Dose Admin Al Hydroxide/Mg Hydroxide (MAALox PLUS 30ML) 30 ml ONCE ONCE PO 01/29/25 16:00 01/29/25 16:01 DC 01/29/25 15:48 Lidocaine HCl (Lidocaine HCl 2% Viscous) 10 ml ONCE ONCE PO 01/29/25 16:00 01/29/25 16:01 DC 01/29/25 15:48 Vital Signs Date Time Temp Pulse Resp B/P (MAP) Pulse Ox O2 Delivery O2 Flow Rate FiO2 01/29/25 15:13 98.1 102 18 120/71 98 Room Air 0 DX & DISP Disposition: Discharge Departure Impression: Primary Impression: Anxiety Additional Impression: Gastritis Condition: Stable Additional Instructions: FOLLOW-UP WITH PRIMARY CARE PROVIDER IN 1 TO 2 DAYS. TAKE MEDICATIONS DIRECTED HERE IN THE EMERGENCY ROOM. OKAY TO CONTINUE HOME MEDICATIONS UNLESS OTHERWISE DISCUSSED DURING YOUR VISIT IN THE EMERGENCY ROOM TODAY. RETURN TO Y OUR NEAREST EMERGENCY ROOM IF SYMPTOMS WORSEN OR IF THERE IS NO IMPROVEMENT. CALL 911 IF YOU NEED IMMEDIATE ASSISTANCE. TAKE TYLENOL [id number] NEEDED AND IF NO CONTRAINDICATIONS ARE PRESENT. INCREASE ORAL HYDRATION. A WOUND CULTURE OR URINE CULTURE WAS ORDERED HERE IN THE EMERGENCY ROOM DEPARTMENT PLEASE FOLLOW-UP WITH PRIMARY CARE PROVIDER AND ADVISE THEM TO GET REPORTS FROM OUR FACILITY. IF YOU HAD ANY DONNA WRAP/SPLINTS THAT WERE APPLIED HERE, PLEASE DO NOT REMOVE THEM UNTIL YOU SEE YOUR PRIMARY CARE OR SPECIALTY. REFERRALS: Referrals: JAMES WALDRON (PCP) Time of Disposition: 16:32 HAYDER HE MD Jan 29, 2025 16:32
== END 2025-01-29 16:59 | disposition home or self-care (01) ==
LOC: EDH 15:11
DX: K29.70 Gastritis, unspecified, without bleeding (principal); F41.9 Anxiety disorder, unspecified; Z79.899 Other long term (current) drug therapy
CPT/HCPCS: 36415; 80053; 81003; 82948; 83690; 85025; 99283

== ENCOUNTER 2025-02-02 20:30 | Emergency (ER) | payer BC ==
[~2025-02-02] VITALS: Ht 165.1 cm; Wt 84.4 kg
--- NOTE | 2025-02-02 21:11 | EKG ---
[facility] Test Date: 2025-02-02 Test Time: 21:06:18 Pat Name: ROGELIO HANEY Department: [facility] Room: Gender: M Felt Checker: [id number] : 2005 Requested By: JING MARTINEZ Order Number: [id number] Reading MD: Measurements Intervals [place] Rate: 95 P: 61 GA: 129 QRS: 63 QRSD: 80 T: 43 QT: 324 QTc: 408 Interpretive Statements Sinus rhythm Please click the below link to view image of tracing.
[2025-02-02 21:36] LABS: IMMATURE GRANULOCYTE ABSOLUTE 0.09 K/uL (0-1); NUCLEATED RED BLOOD CELLS 0.0 % (0.0-0.19); PLATELET COUNT (AUTO) 287 K/uL (130-400); RED BLOOD CELL COUNT(AUTO) 4.89 MIL/uL (4.50-6.20); RED CELL DISTRIBUTION WIDTH 12.2 % (11.0-15.5); WHITE BLOOD COUNT (AUTO) 10.2 K/uL (4.8-10.8)
[2025-02-02 21:45] LABS: CREATININE 1.0 mg/dL (0.5-1.3); GLOMERULAR FILTR. RATE CALC 110.0 mL/min (>90); GLUCOSE,RANDOM 97.0 mg/dL (70-105); SODIUM SERUM 138.0 mmol/L (136-145); UREA NITROGEN, BLOOD 11.0 mg/dL (7-18)
--- NOTE | 2025-02-02 21:59 | HMCIMG ---
EXAM: XR Chest, 1 View. CLINICAL HISTORY: Dizziness and lightheadedness. COMPARISON: XR Chest dated 05/03/2024. FINDINGS: LUNGS: The lungs are clear. No consolidation. PLEURAL SPACES: No pleural effusion or pneumothorax. HEART: The heart size is normal. BONES: No acute osseous abnormality. IMPRESSION: 1. No acute findings. Similar to XR Chest dated 05/03/2024. /[place]
--- NOTE | 2025-02-02 22:54 | NUR ---
DR MARTINEZ MADE AWARE PATIENT RECIEVED IV FLUIDS WITH EMS, VERBAL ORDER TO D/C NEW IV FLUID ORDER
[2025-02-02] MEDS: 0.9%NACL 1000ML 1,000 ML IV ONE (22:55)
[2025-02-02 23:04] LABS: APPEARANCE,URINE CLEAR (CLEAR); GLUCOSE, URINE (UA) NEGATIVE (NEGATIVE); LEUKOCYTE ESTERASE ,URINE NEGATIVE Leu/uL (NEGATIVE); NITRATE,URINE NEGATIVE (NEGATIVE); OCCULT BLOOD,URINE NEGATIVE (NEGATIVE)
[2025-02-02] MEDS ORDERED: HYDR-3421 PO (23:05)
--- NOTE | 2025-02-02 23:05 | ERN ---
ED Note History of Present Illness Stated Complaint: DIZZINESS, WEAKNESS X 1 WEEK ABD PAIN X 1 MONTH Chief Complaint: Dizzy/Light Headed Time Seen by MD: 20:32 Dictation: This is a 19-year-old male who is overweight presented to the emergency room with complaints of dizziness generalized weakness. He states that he has a poor appetite for the past 1 month and every time he eats he gets abdominal pain and throws up. He has been evaluated in the past multiple times with CT scans of the chest which were unremarkable. He was recommended to see acid blower at he stated that he did not have money. He was recently seen on in the ER on the and diagnosed with gastroesophageal reflux disease. Patient stated that he has used Zofran ODT without much improvement. He states that he was diagnosed with anxiety and depression long time ago and was on medications when his symptoms were quite similar and he had improved at the time. EMS gave him a L of normal saline before coming to the ER. Temperature 98 pulse 102 respirations 14 blood pressure 107/62 with a pulse oximetry of 96% on room air Allergies: Coded Allergies: No Known Drug Allergies (Unverified Allergy, Unknown, 10/26/19) Home Meds Active Scripts Hydroxyzine HCl (Hydroxyzine HCl) 25 Mg Tablet, 1 TAB PO BID for anxiety for 10 Days, #20 TAB 0 Refills Prov:JING MARTINEZ MD 02/02/25 Ondansetron (Ondansetron Odt) 4 Mg Tab.rapdis, 4 MG PO Q8HPRN PRN for nausea, #16 TAB 0 Refills Prov:HERBIE VAN 01/28/25 Ondansetron (Ondansetron Odt) 4 Mg Tab.rapdis, 4 MG PO Q6HPRN PRN for nausea, #15 TAB 0 Refills Prov:MEGA TORRES NP 01/16/25 Dicyclomine HCl (Bentyl) 10 Mg Cap, 1 CAP PO Q6HPRN PRN for irritable bowel symptoms, #15 CAP 0 Refills Prov:MEGA TORRES NP 01/16/25 Lactobacillus Acidophilus (Acidophilus Probiotic) 500 Million Cell Capsule, 1 CAP PO DAILY for 30 Days, #30 CAP 0 Refills Prov:HAYDER HE MD 01/07/25 Dicyclomine HCl (Bentyl) 20 Mg Tab, 20 MG PO q12 hours PRN for abdominal pain/cramping, #10 TAB 0 Refills Prov:MEGA TORRES HOUSEHOLD APPLIANCE REPAIRER 11/04/24 Ondansetron (Ondansetron Odt) 8 Mg Tab.rapdis, 4 MG PO Q6H for nausea/vomiting for 3 Days, #12 TAB 0 Refills Prov:MEGA TORRES HOUSEHOLD APPLIANCE REPAIRER 11/04/24 Famotidine (Famotidine) 20 Mg Tablet, 1 TAB PO BID for 30 Days, #60 TAB 0 Refills Prov:MEGA TORRES HOUSEHOLD APPLIANCE REPAIRER 09/26/24 Ondansetron (Ondansetron Odt) 4 Mg Tab.rapdis, 4 MG PO Q6HPRN PRN for nausea, #15 TAB 0 Refills Prov:MEGA TORRES HOUSEHOLD APPLIANCE REPAIRER 09/26/24 Pantoprazole Sodium (Protonix) 40 Mg Ectab, 1 TAB PO DAILY for 30 Days, #30 TAB 0 Refills Prov:HAYDER HE MD 05/18/24 Famotidine (Pepcid) 20 Mg Tablet, 20 MG PO DAILY for 5 Days, #5 TAB Prov:RAMON SAN 02/16/24 Ondansetron (Ondansetron Odt) 4 Mg Tab.rapdis, 4 MG PO BID for 7 Days, #14 TAB Prov:RAMON SAN 02/16/24 Hydroxyzine HCl (Hydroxyzine HCl) 25 Mg Tablet, 25 MG PO BID for anxiety, #15 TAB Prov:HERMELINDA PATEL PAC 11/24/22 Past Medical History Past Medical History: Anxiety, GERD Additional Past Medical Hx: HYPOGLYCEMIA Surgical History: None Surgical History Other: CYST REMOVAL TO RIGHT SHOULDER. Family History: DM Social History: ETOH RN Note Reviewed/Agreed w/PFSH: Yes Review of System Dictation Constitutional: Negative for fever,chills, and weight loss Eyes: Negative for injury, pain,redness, and discharge ENT: Negative for injury,pain or swelling Cardiovascular: Negative for chest pain, palpitations, and edema Respiratory: Negative for shortness of breath, cough, and wheezing, Abdomen/GI: Positive for intermittent abdominal pain, nausea, vomiting, no diarrhea, and constipation Back: Negative for injury and pain : Negative for injury, bleeding and discharge MS/Extremity: Negative for injury and deformity Skin: Negative for rash, and discoloration Neuro: Negative for headache, weakness, numbness, tingling, and seizure Psych: Negative for suicide ideation, homicidal ideation, and hallucinations positive for severe anxiety Initial Vital Sign VS Vital Signs Date Time Temp Pulse Resp B/P (MAP) Pulse Ox O2 Delivery O2 Flow Rate FiO2 02/02/25 20:31 98.1 102 14 107/62 96 0 02/02/25 23:47 Room Air* 21 Physical Exam Dictation General: awake, alert, NAD generally anxious Head/Face: Normocephalic, atraumatic Eyes: PERRL, EOMI, vision at baseline ENT: oral cavity clear, TMs clear, no signs of infection Neck: Trachea midline, supple, no nuchal rigidity Cardiovascular: RRR, normal S1/S2, No MRGs, no JVD Respiratory: CTAB, no respiratory distress, No rales or wheezes Abdomen: Soft, non-tender, non-distended, normal bowel sounds, no guarding or r ebound. Skin: Warm, dry, normal turgor, no rash MS/Extremity: Pulses equal, no cyanosis, neurovascular intact, FROM Neuro: COAx4, GCS 15, strength 5/5, CN 2-12 intact, normal cerebellar exam, normal gait, Psych: Normal behavior, mood, and affect normal Extremities-trace edema without any palpable cords, Homans sign is negative Results (Laboratory/Radiology) Laboratory/Radiology Laboratory Tests Test 02/02/25 21:29 02/02/25 22:56 White Blood Count 10.2 K/uL (4.8-10.8) Red Blood Count 4.89 MIL/uL (4.50-6.20) Hemoglobin 14.2 g/dL (14.0-18.0) Hematocrit 43.1 % (42-54) Mean Corpuscular Volume 88.1 fL (80-100) Mean Corpuscular Hemoglobin 29.0 pg (27.0-33.0) Mean Corpuscular Hemoglobin Concent 32.9 g/dL (32.0-36.0) Red Cell Distribution Width 12.2 % (11.0-15.5) Platelet Count 287 K/uL (130-400) Mean Platelet Volume 10.4 fL (7.5-10.5) Immature Granulocyte % (Auto) 0.9 % (0-1) Neutrophils (%) (Auto) 73.6 % (40.0-77.0) Lymphocytes (%) (Auto) 17.6 % (21.0-51.0) L Monocytes (%) (Auto) 5.6 % (3.0-13.0) Eosinophils (%) (Auto) 1.6 % (0.0-8.0) Basophils (%) (Auto) 0.7 % (0.0-5.0) Neutrophils # (Auto) 7.5 K/uL (1.8-7.7) Lymphocytes # (Auto) 1.8 K/uL (1.0-4.8) Monocytes # (Auto) 0.6 K/uL (0.1-1.0) Eosinophils # (Auto) 0.16 K/uL (0.00-0.70) Basophils # (Auto) 0.07 K/uL (0.00-0.20) Absolute Immature Granulocyte (auto 0.09 K/uL (0-1) Nucleated Red Blood Cells 0.0 % (0.0-0.19) Sodium Level 138 mmol/L (136-145) Potassium Level 4.0 mmol/L (3.5-5.1) Chloride Level 102 mmol/L (101-111) Carbon Dioxide Level 30 mmol/L (21-32) Blood Urea Nitrogen 11 mg/dL (7-18) Creatinine 1.0 mg/dL (0.5-1.3) Glomerular Filtration Rate Calc 110 mL/min (>90) Random Glucose 97 mg/dL (70-105) Total Calcium 8.7 mg/dL (8.5-10.1) Lipase 15 U/L (16-77) L Urine Color LIGHT-YELLOW (YELLOW) Urine Appearance CLEAR (CLEAR) Urine pH 7.5 (5.0-8.0) Urine Specific [place] 1.018 (1.001-1.031) Urine Protein NEGATIVE mg/dL (NEGATIVE) Urine Glucose (UA) NEGATIVE mg/dL (NEGATIVE) Urine Ketones NEGATIVE mg/dL (NEGATIVE) Urine Occult Blood NEGATIVE (NEGATIVE) Urine Nitrate NEGATIVE (NEGATIVE) Urine Bilirubin NEGATIVE mg/dL (NEGATIVE) Urine Urobilinogen 0.2 mg/dL (0.2-1.0) Urine Leukocyte Esterase NEGATIVE Andre/uL Urine Opiates Screen NEGATIVE (NEGATIVE) Urine Barbiturates Screen NEGATIVE (NEGATIVE) Urine Phencyclidine Screen NEGATIVE (NEGATIVE) Urine Amphetamines Screen NEGATIVE (NEGATIVE) Urine Benzodiazepines Screen NEGATIVE (NEGATIVE) Urine Cocaine Screen NEGATIVE (NEGATIVE) Urine Marijuana (THC) Screen NEGATIVE (NEGATIVE) Labs Reviewed?: Yes ED Course ED Course Orders Procedure Category Date Status Time Cbc With Differential LAB 02/02/25 Complete 20:44 Urinalysis Profile LAB 02/02/25 Complete 20:44 12 Lead Ekg Tracing- EKG 02/02/25 Complete Technical 20:44 Chest 1vw RAD 02/02/25 Resulted 20:44 Lipase LAB 02/02/25 Complete 20:44 Basic Metabolic Panel LAB 02/02/25 Complete 20:44 Drug Screen Urine LAB 02/02/25 Complete 20:44 0.9%Nacl 1000ml (Ns PHA 02/02/25 Complete 1000ml) 23:00 Hydroxyzine 10mg Tab PHA 02/02/25 Complete (Atarax 10mg Tab) 23:30 Current Medications Medications (Trade) Dose Ordered Sig/Braulio Route PRN Reason Start Time Stop Time Status Last Admin Dose Admin Hydroxyzine HCl (ATArax 10MG TAB) 10 mg ONCE ONCE PO 02/02/25 23:30 02/02/25 23:31 DC 02/02/25 23:13 Sodium Chloride 1,000 ml @ 0 mls/hr ONCE ONCE IV 02/02/25 23:00 02/02/25 23:01 DC Vital Signs Date Time Temp Pulse Resp B/P (MAP) Pulse Ox O2 Delivery O2 Flow Rate FiO2 02/02/25 23:47 98.1 92 16 112/64 97 Room Air* 0 21 02/02/25 20:31 98.1 102 14 107/62 96 0 We will perform diagnostic labs, advanced imaging and administer medications according to the patient's complaint. Once the results are available, will review and personally interpreted the labs to rule out any acute life- threatening emergency the trach require immediate intervention and treatment. I will then re-evaluate the patient after treatment and diagnostic exams have return to determine whether the patient requires any further testing, can safely be discharged home or need further admission to hospital for additional treatment and evaluation. Medical Decision Making MDM Differential diagnosis: Gastritis, gastroesophageal reflux disease, severe anxiety with somatic complaints, inflammatory bowel disease. This is a 19-year-old male who is overweight presented to the emergency room with complaints of dizziness generalized weakness. He states that he has a poor appetite for the past 1 month and every time he eats he gets abdominal pain and throws up. He has been evaluated in the past multiple times with CT scans of the chest which were unremarkable. He was recommended to see acid blower at he stated that he did not have money. He was recently seen on in the ER on the and diagnosed with gastroesophageal reflux disease. Patient stated that he has used Zofran ODT without much improvement. He states that he was diagnosed with anxiety and depression long time ago and was on medications when his symptoms were quite similar and he had improved at the time. EMS gave him a L of normal saline before coming to the ER. Temperature 98 pulse 102 respirations 14 blood pressure 107/62 with a pulse oximetry of 96% on room air 10:15 p.m. labs reviewed CBC with a normal limits BNP 7 normal. Lipase 15, chest x-ray is unremarkable 10:47 p.m. urinalysis is unremarkable UDS is negative. A trial of non addicting anxiolytic and patient is willing to eat after the anxiolytic. Who is able to eat without any abdominal pain or vomitings. I have recommended that he should be evaluated by psychiatrist or his primary care physician for anxiety and depression as well as he needs to be evaluated for inflammatory bowel disease also and he verbalized full underwent Rationale: Tests considered and ordered secondary to shared decision making include: Previous outside records reviewed: Old ER visits. Risk of complication and/or morbidity or mortality of patient management: None Medications-Per medication reconciliation Need for hospitalization: Patient does not meet criteria for hospitalization. Need for emergency major/minor surgery: No There are no social concerns with this patient. Prescription drug management Prescriptions will include symptomatic care Patient's prior external medical records from other ER visits were reviewed by me as indicated. Prior testing and results from previous visits were reviewed. Prior tests were taken into account with medical decision making and resource utilization, independent historian/historians were used to obtain complete medical history. I independently interpreted the test that were performed, results were reviewed by me and considered findings on radiology if ordered. Medical management and examination interpretation discussions were had by me with other qualified healthcare professionals as indicated for the patient's care. Problem List Problem List: (1) Anxiety disorder (2) Gastritis (3) Mild dehydration (4) Dizziness DX & DISP Disposition: Discharge Departure Impression: Primary Impression: Anxiety disorder Additional Impressions: Gastritis, Dizziness, Mild dehydration Condition: Stable Scripts Hydroxyzine HCl (Hydroxyzine HCl) 25 Mg Tablet 1 TAB PO BID for anxiety for 10 Days, #20 TAB 0 Refills Prov: JING MARTINEZ MD 02/02/25 Additional Instructions: Patient and the caregiver have been informed of all the diagnostic tests and the imaging conducted during the today's visit to the emergency room and has verbalized understanding of the results I have personally reviewed and interpreted all diagnostic exams performed here in the ER today as well as the vital signs documented by the nursing staff. The patient is now being discharged to home and should follow up with the primary care physician or the specialist as directed by the ER staff. Follow-up with primary care provider in 1 to 2 days. Take medications as directed here in the emergency room. Okay to continue home medications unless otherwise discussed during your visit in the emergency room today. Return to your nearest emergency room if symptoms worsen or if there is no improvement. Call 911 if you need immediate assistance. Take Tylenol or Motrin [id number] as needed and if no contraindications are present. Increase oral hydration. A wound culture or urine culture was ordered here in the emergency room department please follow-up with primary care provider and advise them to get repeat ports from our facility. If you had any Bunny wrap/splints that were applied here, please do not remove them until you see your primary care or specialty. He has been using Tums for reflux symptoms and recommended to continue that for now Referrals: JAMES WALDRON (PCP) JING MARTINEZ MD Feb 02, 2025 23:05
[2025-02-02 23:12] LABS: AMPHET/METH SCREEN,URINE NEGATIVE (NEGATIVE); BARBITURATE SCREEN, URINE NEGATIVE (NEGATIVE); CANNABINOID SCREEN,URINE NEGATIVE (NEGATIVE); COCAINE SCREEN,URINE NEGATIVE (NEGATIVE)
[2025-02-02 23:34] LABS: ADD UA MICROSCOPIC NO
[2025-02-02 23:47] VITALS: BP 112/64; PULSE 92; RESP 16; TEMP 98.1; O2SAT 97
== END 2025-02-02 23:47 | disposition home or self-care (01) ==
LOC: EDH 20:30
DX: F41.9 Anxiety disorder, unspecified (principal); K29.70 Gastritis, unspecified, without bleeding; R42 Dizziness and giddiness; E86.0 Dehydration; Z79.899 Other long term (current) drug therapy
CPT/HCPCS: 36415; 71045; 80048; 80305; 81003; 83690; 85025; 93005; 99284

== ENCOUNTER 2025-02-08 19:09 | Emergency (ER) | payer BC ==
[~2025-02-08] VITALS: Ht 165.1 cm; Wt 83.9 kg
[2025-02-08 19:28] LABS: IMMATURE GRANULOCYTE ABSOLUTE 0.07 K/uL (0-1); NUCLEATED RED BLOOD CELLS 0.0 % (0.0-0.19); PLATELET COUNT (AUTO) 296 K/uL (130-400); RED BLOOD CELL COUNT(AUTO) 5.10 MIL/uL (4.50-6.20); RED CELL DISTRIBUTION WIDTH 12.4 % (11.0-15.5); WHITE BLOOD COUNT (AUTO) 9.6 K/uL (4.8-10.8)
[2025-02-08 19:40] LABS: CREATININE 1.0 mg/dL (0.5-1.3); GLOMERULAR FILTR. RATE CALC 110.0 mL/min (>90); GLUCOSE,RANDOM 110.0 mg/dL (70-105); SODIUM SERUM 141.0 mmol/L (136-145); UREA NITROGEN, BLOOD 11.0 mg/dL (7-18)
[2025-02-08 19:44] LABS: ASPARTATE AMINOTRANSFERASE 17.0 U/L (10-37); TOTAL PROTEIN, SERUM 7.4 g/dL (6.0-8.3)
--- NOTE | 2025-02-08 19:44 | ERN ---
ED Note History of Present Illness Stated Complaint: DEHYDRATION, DIZZINESS, DIARRHEA Chief Complaint: Multiple Complaints Time Seen by MD: 19:13 Time Seen by Midlevel: 19:13 Dictation: The patient is a 19-year-old male with history of anxiety who presents to the emergency department with complaints of nonbloody diarrhea. Patient reports symptoms been going on for a month and reports that he feels like he is dehydrated and feels lightheaded. Patient denies any nausea or vomiting, denies any fevers. Reports occasional lower abdominal pain right currently denies any pain. Allergies: Coded Allergies: No Known Drug Allergies (Unverified Allergy, Unknown, 10/26/19) Home Meds Active Scripts Hydroxyzine HCl (Hydroxyzine HCl) 25 Mg Tablet, 1 TAB PO BID for anxiety for 10 Days, #20 TAB 0 Refills Prov:JING MARTINEZ MD 02/02/25 Ondansetron (Ondansetron Odt) 4 Mg Tab.rapdis, 4 MG PO Q8HPRN PRN for nausea, #16 TAB 0 Refills Prov:HERBIE VAN 01/28/25 Ondansetron (Ondansetron Odt) 4 Mg Tab.rapdis, 4 MG PO Q6HPRN PRN for nausea, #15 TAB 0 Refills Prov:MEGA TORRES NP 01/16/25 Dicyclomine HCl (Bentyl) 10 Mg Cap, 1 CAP PO Q6HPRN PRN for irritable bowel symptoms, #15 CAP 0 Refills Prov:MEGA TORRES NP 01/16/25 Lactobacillus Acidophilus (Acidophilus Probiotic) 500 Million Cell Capsule, 1 CAP PO DAILY for 30 Days, #30 CAP 0 Refills Prov:HAYDER HE MD 01/07/25 Dicyclomine HCl (Bentyl) 20 Mg Tab, 20 MG PO q12 hours PRN for abdominal pain/cramping, #10 TAB 0 Refills Prov:MEGA TORRES NP 11/04/24 Ondansetron (Ondansetron Odt) 8 Mg Tab.rapdis, 4 MG PO Q6H for nausea/vomiting for 3 Days, #12 TAB 0 Refills Prov:MEGA TORRES NP 11/04/24 Famotidine (Famotidine) 20 Mg Tablet, 1 TAB PO BID for 30 Days, #60 TAB 0 Refills Prov:MEGA TORRES Lucy [employer] 09/26/24 Ondansetron (Ondansetron Odt) 4 Mg Tab.rapdis, 4 MG PO Q6HPRN PRN for nausea, #15 TAB 0 Refills Prov:MEGA TORRES Lucy [employer] 09/26/24 Pantoprazole Sodium (Protonix) 40 Mg Ectab, 1 TAB PO DAILY for 30 Days, #30 TAB 0 Refills Prov:HAYDER HE MD 05/18/24 Famotidine (Pepcid) 20 Mg Tablet, 20 MG PO DAILY for 5 Days, #5 TAB Prov:RAMON SAN 02/16/24 Ondansetron (Ondansetron Odt) 4 Mg Tab.rapdis, 4 MG PO BID for 7 Days, #14 TAB Prov:RAMON SAN 02/16/24 Hydroxyzine HCl (Hydroxyzine HCl) 25 Mg Tablet, 25 MG PO BID for anxiety, #15 TAB Prov:HERMELINDA PATEL PAC 11/24/22 Past Medical History Past Medical History: Anxiety, GERD Additional Past Medical Hx: HYPOGLYCEMIA Surgical History: None Surgical History Other: CYST REMOVAL TO RIGHT SHOULDER. Family History: DM Social History: ETOH RN Note Reviewed/Agreed w/PFSH: Yes Review of System Dictation Constitutional: Negative for fever,chills, and weight loss Eyes: Negative for injury, pain,redness, and discharge ENT: Negative for injury,pain or swelling Cardiovascular: Negative for chest pain, palpitations, and edema Respiratory: Negative for shortness of breath, cough, and wheezing, Abdomen/GI: Negative for abdominal pain, nausea, vomiting, and constipation positive for diarrhea Back: Negative for injury and pain : Negative for injury, bleeding and discharge MS/Extremity: Negative for injury and deformity Skin: Negative for rash, and discoloration Neuro: Negative for headache, weakness, numbness, tingling, and seizure Psych: Negative for suicide ideation, homicidal ideation, and hallucinations Initial Vital Sign VS Vital Signs Date Time Temp Pulse Resp B/P (MAP) Pulse Ox O2 Delivery O2 Flow Rate FiO2 02/08/25 19:10 98.2 111 20 133/80 98 Room Air Physical Exam Dictation Vital Signs reviewed General Appearance: Alert, oriented x 3, no acute distress, well developed, nourished. Head and Face: non-traumatic. Eyes: PERRL, pink conjunctivas, eyelid no trauma, anterior chamber with arcus senilis. Ears: Pinnas intact and no signs of trauma or erythema ear canals clear and no discharge TM no erythema Nose: No discharge, no bleeding. Oropharynx: Mouth normal, tongue pink. pharynx clear,no erythema, tonsils no exudates, no abscesses noted, mucous membrane moist Neck: Supple, non-tender, no thyromegaly, no masses, no JVD, no bruits Breast:Deferred Chest:No tenderness, no crepitus, no paradoxical movement, no retractions Lungs:Clear, well-ventilated, symmetric, no rales, no wheezing, no rhonchi, no stridor, good breath sounds bilaterally Heart: Regular rate, regular rhythm, no murmur, no gallops Vascular: no peripheral edema, Abdomen: Soft, positive bowel sounds, nondistended, no guarding, nontender, no rebound, no masses no hepatomegaly, no splenomegaly, no Ngo's sign, no hernias. Rectal: Deferred Genital: Deferred Neurological: Normal speech, motor function intact, sensory function intact , upper extremities equal in strength, lower extremities equal in strength Musculoskeletal: Neck nontender, full range of motion, back nontender, full range of motion, Extremities: nontender, full range of motion Skin: Color pink, dry, no turgor, no rash, no lacerations, no abrasions, no contusions. Lymphatic: Deferred Results (Laboratory/Radiology) Laboratory/Radiology Laboratory Tests Test 02/08/25 19:21 02/08/25 19:50 White Blood Count 9.6 K/uL (4.8-10.8) Red Blood Count 5.10 MIL/uL (4.50-6.20) Hemoglobin 15.0 g/dL (14.0-18.0) Hematocrit 43.6 % (42-54) Mean Corpuscular Volume 85.5 fL (80-100) Mean Corpuscular Hemoglobin 29.4 pg (27.0-33.0) Mean Corpuscular Hemoglobin Concent 34.4 g/dL (32.0-36.0) Red Cell Distribution Width 12.4 % (11.0-15.5) Platelet Count 296 K/uL (130-400) Mean Platelet Volume 10.6 fL (7.5-10.5) H Immature Granulocyte % (Auto) 0.7 % (0-1) Neutrophils (%) (Auto) 76.6 % (40.0-77.0) Lymphocytes (%) (Auto) 15.3 % (21.0-51.0) L Monocytes (%) (Auto) 5.2 % (3.0-13.0) Eosinophils (%) (Auto) 1.5 % (0.0-8.0) Basophils (%) (Auto) 0.7 % (0.0-5.0) Neutrophils # (Auto) 7.4 K/uL (1.8-7.7) Lymphocytes # (Auto) 1.5 K/uL (1.0-4.8) Monocytes # (Auto) 0.5 K/uL (0.1-1.0) Eosinophils # (Auto) 0.14 K/uL (0.00-0.70) Basophils # (Auto) 0.07 K/uL (0.00-0.20) Absolute Immature Granulocyte (auto 0.07 K/uL (0-1) Nucleated Red Blood Cells 0.0 % (0.0-0.19) Sodium Level 141 mmol/L (136-145) Potassium Level 4.0 mmol/L (3.5-5.1) Chloride Level 105 mmol/L (101-111) Carbon Dioxide Level 29 mmol/L (21-32) Blood Urea Nitrogen 11 mg/dL (7-18) Creatinine 1.0 mg/dL (0.5-1.3) Glomerular Filtration Rate Calc 110 mL/min (>90) Random Glucose 110 mg/dL (70-105) H Total Calcium 8.7 mg/dL (8.5-10.1) Total Bilirubin 0.3 mg/dL (0.2-1.0) Aspartate Amino Transf (AST/SGOT) 17 U/L (10-37) Alanine Aminotransferase (ALT/SGPT) 46 U/L (12-78) Alkaline Phosphatase 92 U/L (50-136) Total Protein 7.4 g/dL (6.0-8.3) Albumin 3.7 g/dL (3.5-5.0) Urine Color LIGHT-YELLOW (YELLOW) Urine Appearance CLOUDY (CLEAR) H Urine pH 7.0 (5.0-8.0) Urine Specific [place] 1.021 (1.001-1.031) Urine Protein NEGATIVE mg/dL (NEGATIVE) Urine Glucose (UA) NEGATIVE mg/dL (NEGATIVE) Urine Ketones NEGATIVE mg/dL (NEGATIVE) Urine Occult Blood NEGATIVE (NEGATIVE) Urine Nitrate NEGATIVE (NEGATIVE) Urine Bilirubin NEGATIVE mg/dL (NEGATIVE) Urine Urobilinogen 0.2 mg/dL (0.2-1.0) Urine Leukocyte Esterase NEGATIVE Andre/uL Urine Opiates Screen NEGATIVE (NEGATIVE) Urine Barbiturates Screen NEGATIVE (NEGATIVE) Urine Phencyclidine Screen NEGATIVE (NEGATIVE) Urine Amphetamines Screen NEGATIVE (NEGATIVE) Urine Benzodiazepines Screen NEGATIVE (NEGATIVE) Urine Cocaine Screen NEGATIVE (NEGATIVE) Urine Marijuana (THC) Screen NEGATIVE (NEGATIVE) Labs Reviewed?: Yes ED Course ED Course Orders Procedure Category Date Status Time Cbc With Differential LAB 02/08/25 Complete 19:16 Comprehensive LAB 02/08/25 Complete Metabolic Panel 19:16 Urinalysis Profile LAB 02/08/25 Complete 19:20 0.9%Nacl 1000ml (Ns PHA 02/08/25 Complete 1000ml) 19:30 Drug Screen Urine LAB 02/08/25 Complete 19:20 Current Medications Medications (Trade) Dose Ordered Sig/Braulio Route PRN Reason Start Time Stop Time Status Last Admin Dose Admin Sodium Chloride 1,000 ml @ 0 mls/hr ONCE ONCE IV 02/08/25 19:30 02/08/25 19:31 DC 02/08/25 19:57 Vital Signs Date Time Temp Pulse Resp B/P (MAP) Pulse Ox O2 Delivery O2 Flow Rate FiO2 02/08/25 19:10 98.2 111 20 133/80 98 Room Air Medical Decision Making MDM The patient is a 19-year-old male with history of anxiety who presents to the emergency department with complaints of nonbloody diarrhea. Patient reports symptoms been going on for a month and reports that he feels like he is dehydrated and feels lightheaded. Patient denies any nausea or vomiting, denies any fevers. Reports occasional lower abdominal pain right currently denies any pain. CBC showed no leukocytosis, no anemia, chemistry showed no electrolyte imbalance, normal renal function. Patient received a L of fluids in ER. On physical exam patient is in no acute distress, nontender abdomen to palpation. Nontoxic appearance, stable vital signs. Patient reports he has been following up with his primary doctor for this recent. Has been here multiple times. Patient is pending follow up with podiatric aide. Differential diagnosis: Gastroenteritis, gastritis, dehydration, acute kidney injury, electrolyte imbalance Need for hospitalization: Patient does not meet criteria for hospitalization. There are no social concerns with this patient. DX & DISP Disposition: Discharge Departure Impression: Primary Impression: Diarrhea Additional Impression: Mild dehydration Condition: Stable Additional Instructions: Please follow up with your primary doctor in 1-2 days. If anything worsens please return to ER. Continue oral hydration at home. FOLLOW-UP WITH PRIMARY CARE PROVIDER IN 1 TO 2 DAYS. TAKE MEDICATIONS DIRECTED HERE IN THE EMERGENCY ROOM. OKAY TO CONTINUE HOME MEDICATIONS UNLESS OTHERWISE DISCUSSED DURING YOUR VISIT IN THE EMERGENCY ROOM TODAY. RETURN TO YOUR NEAREST EMERGENCY ROOM IF SYMPTOMS WORSEN OR IF THERE IS NO IMPROVEMENT. CALL 911 IF YOU NEED IMMEDIATE ASSISTANCE. TAKE TYLENOL [id number] NEEDED AND IF NO CONTRAINDICATIONS ARE PRESENT. INCREASE ORAL HYDRATION. A WOUND CULTURE OR URINE CULTURE WAS ORDERED HERE IN THE EMERGENCY ROOM DEPARTMENT PLEASE FOLLOW-UP WITH PRIMARY CARE PROVIDER AND ADVISE THEM TO GET REPEAT PORTS FROM OUR FACILITY. IF YOU HAD ANY DONNA WRAP/SPLINTS THAT WERE APPLIED HERE, PLEASE DO NOT REMOVE THEM UNTIL YOU SEE YOUR PRIMARY CARE OR SPECIALTY. Referrals: JAMES WALDRON (PCP) Time of Disposition: 20:40 I have reviewed the case, and I agree with, Diagnosis and Plan TETE COVARRUBIAS Feb 08, 2025 19:44
[2025-02-08] MEDS: 0.9%NACL 1000ML 1,000 ML IV ONE (19:57)
[2025-02-08 20:12] LABS: APPEARANCE,URINE CLOUDY (CLEAR); GLUCOSE, URINE (UA) NEGATIVE (NEGATIVE); LEUKOCYTE ESTERASE ,URINE NEGATIVE Leu/uL (NEGATIVE); NITRATE,URINE NEGATIVE (NEGATIVE); OCCULT BLOOD,URINE NEGATIVE (NEGATIVE)
[2025-02-08 20:14] LABS: ADD UA MICROSCOPIC NO
[2025-02-08 20:21] LABS: AMPHET/METH SCREEN,URINE NEGATIVE (NEGATIVE); BARBITURATE SCREEN, URINE NEGATIVE (NEGATIVE); CANNABINOID SCREEN,URINE NEGATIVE (NEGATIVE); COCAINE SCREEN,URINE NEGATIVE (NEGATIVE)
[2025-02-08 20:49] VITALS: BP 129/78; PULSE 96; RESP 18; TEMP 98.4; O2SAT 99
== END 2025-02-08 20:50 | disposition home or self-care (01) ==
LOC: EDH 19:09
DX: R19.7 Diarrhea, unspecified (principal); E86.0 Dehydration; F41.9 Anxiety disorder, unspecified; Z79.899 Other long term (current) drug therapy
CPT/HCPCS: 99283; 80053; 80305; 85025; 36415; 81003; J7030

== ENCOUNTER 2025-02-16 03:23 | Emergency (ER) | payer BC ==
[~2025-02-16] VITALS: Ht 165.1 cm; Wt 86.2 kg
[2025-02-16 04:07] LABS: APPEARANCE,URINE CLEAR (CLEAR); GLUCOSE, URINE (UA) NEGATIVE (NEGATIVE); LEUKOCYTE ESTERASE ,URINE NEGATIVE Leu/uL (NEGATIVE); NITRATE,URINE NEGATIVE (NEGATIVE); OCCULT BLOOD,URINE NEGATIVE (NEGATIVE)
[2025-02-16 04:10] LABS: ADD UA MICROSCOPIC NO
[2025-02-16] MEDS: ORPHENADRINE 60MG/2ML IVP ONE (04:12)
[2025-02-16] MEDS: LACTATED RINGERS 1000ML IV STA (04:13)
[2025-02-16 04:25] LABS: IMMATURE GRANULOCYTE ABSOLUTE 0.05 K/uL (0-1); NUCLEATED RED BLOOD CELLS 0.0 % (0.0-0.19); PLATELET COUNT (AUTO) 255 K/uL (130-400); RED BLOOD CELL COUNT(AUTO) 4.95 MIL/uL (4.50-6.20); RED CELL DISTRIBUTION WIDTH 12.4 % (11.0-15.5); WHITE BLOOD COUNT (AUTO) 11.1 K/uL (4.8-10.8)
--- NOTE | 2025-02-16 04:25 | ERN ---
General Chief Complaint: Multiple Complaints Stated Complaint: ABD PAIN,N/V, DIZZINESS Time Seen by MD: 03:51 History of Present Illness Initial Comments 20-year-old male comes in with 48 hours of abdominal pain nausea vomiting feeling lightheaded. He states he had gone to another hospital earlier today where he was given a little fluid but his symptoms were not relieved. He is wondering if he has hypoglycemic as this is happened to him in the past in his blood sugar was 40. Patient is completely unable to keep any solid food or liquids down. Allergies: Coded Allergies: No Known Drug Allergies (Unverified Allergy, Unknown, 10/26/19) Home Meds Active Scripts Hydroxyzine HCl (Hydroxyzine HCl) 25 Mg Tablet, 1 TAB PO BID for anxiety for 10 Days, #20 TAB 0 Refills Prov:JING MARTINEZ MD 02/02/25 Ondansetron (Ondansetron Odt) 4 Mg Tab.rapdis, 4 MG PO Q8HPRN PRN for nausea, #16 TAB 0 Refills Prov:HERBIE VAN 01/28/25 Ondansetron (Ondansetron Odt) 4 Mg Tab.rapdis, 4 MG PO Q6HPRN PRN for nausea, #15 TAB 0 Refills Prov:MEGA TORRES NP 01/16/25 Dicyclomine HCl (Bentyl) 10 Mg Cap, 1 CAP PO Q6HPRN PRN for irritable bowel symptoms, #15 CAP 0 Refills Prov:MEGA TORRES NP 01/16/25 Lactobacillus Acidophilus (Acidophilus Probiotic) 500 Million Cell Capsule, 1 CAP PO DAILY for 30 Days, #30 CAP 0 Refills Prov:HAYDER HE MD 01/07/25 Dicyclomine HCl (Bentyl) 20 Mg Tab, 20 MG PO q12 hours PRN for abdominal pain/cramping, #10 TAB 0 Refills Prov:MEGA TORRES NP 11/04/24 Ondansetron (Ondansetron Odt) 8 Mg Tab.rapdis, 4 MG PO Q6H for nausea/vomiting for 3 Days, #12 TAB 0 Refills Prov:MEGA TORRES NP 11/04/24 Famotidine (Famotidine) 20 Mg Tablet, 1 TAB PO BID for 30 Days, #60 TAB 0 Refills Prov:MEGA TORRES Lucy [employer] 09/26/24 Ondansetron (Ondansetron Odt) 4 Mg Tab.rapdis, 4 MG PO Q6HPRN PRN for nausea, #15 TAB 0 Refills Prov:MEGA TORRES Lucy LAZO 09/26/24 Pantoprazole Sodium (Protonix) 40 Mg Ectab, 1 TAB PO DAILY for 30 Days, #30 TAB 0 Refills Prov:HAYDER HE MD 05/18/24 Famotidine (Pepcid) 20 Mg Tablet, 20 MG PO DAILY for 5 Days, #5 TAB Prov:RAMON SAN 02/16/24 Ondansetron (Ondansetron Odt) 4 Mg Tab.rapdis, 4 MG PO BID for 7 Days, #14 TAB Prov:RAMON SAN 02/16/24 Hydroxyzine HCl (Hydroxyzine HCl) 25 Mg Tablet, 25 MG PO BID for anxiety, #15 TAB Prov:HERMELINDA PATEL PAC 11/24/22 Past Medical History Past Medical History: Anxiety, GERD Medical History Other: HYPOGLYCEMIA Past Surgical History: None Surgical History Other: CYST REMOVAL TO RIGHT SHOULDER. Family History Family History: DM Social History Social History: ETOH Constitutional: (-) chills, (-) diaphoresis, (-) fever, (-) malaise, (-) weakness, (-) other documentation EENTM: (-) eye pain, (-) blurred vision, (-) tearing, (-) double vision, (-) ear pain, (-) ear discharge, (-) nose pain, (-) nose congestion, (-) throat pain, (-) Throat swelling, (-) mouth pain, (-) tooth pain, (-) mouth swelling, (-) other documentation Respiratory: (-) cough, (-) orthopnea, (-) short of breath, (-) stridor, (-) wheezing, (-) other documentation Cardiovascular: (-) chest pain, (-) edema, (-) palpitations, (-) syncope, (-) dyspnea on exertion, (-) other documentation Gastrointestinal/Abdominal: (+) nausea, (+) vomiting, (+) abdominal pain Genitourinary: (-) penile discharge, (-) dysuria, (-) frequency, (-) hematuria, (-) pain, (-) other documentation Musculoskeletal: (-) Neck pain, (-) back pain, (-) Flank Pain, (-) joint pain, (-) joint swelling, (-) muscle pain, (-) muscle stiffness, (-) gout, (-) other documentation Physical Exam General Appearance: (+) mild distress Orientation: (+) alert, (+) oriented x 3 Head/Face Trauma: No Eye: bilateral eye normal inspection, bilateral eye PERRL, bilateral eye EOMI Ear, Nose, Throat: (+) hearing grossly normal, (+) normal ENT inspection Neck: (+) normal inspection, (+) supple Respiratory: (+) chest non-tender, (+) lungs clear Heart: (+) regular, (+) no gallop Vascular: (+) no edema Gastrointestinal: (+) soft, (+) tender, (+) abnormal bowel sounds Gastrointestinal Comment Patient's abdominal tenderness appears to be musculoskeletal as when he sits up and flexes his stomach muscles has pain in his abdomen is worse. Results Laboratory and Microbiology Lab and Micro Result Laboratory Tests Test 02/16/25 03:59 02/16/25 04:11 02/16/25 04:27 Urine Color LIGHT-YELLOW (YELLOW) Urine Appearance CLEAR (CLEAR) Urine pH 7.5 (5.0-8.0) Urine Specific [place] 1.026 (1.001-1.031) Urine Protein NEGATIVE mg/dL (NEGATIVE) Urine Glucose (UA) NEGATIVE mg/dL (NEGATIVE) Urine Ketones NEGATIVE mg/dL (NEGATIVE) Urine Occult Blood NEGATIVE (NEGATIVE) Urine Nitrate NEGATIVE (NEGATIVE) Urine Bilirubin NEGATIVE mg/dL (NEGATIVE) Urine Urobilinogen 0.2 mg/dL (0.2-1.0) Urine Leukocyte Esterase NEGATIVE Andre/uL White Blood Count 11.1 K/uL (4.8-10.8) H Red Blood Count 4.95 MIL/uL (4.50-6.20) Hemoglobin 14.5 g/dL (14.0-18.0) Hematocrit 42.9 % (42-54) Mean Corpuscular Volume 86.7 fL (79-99) Mean Corpuscular Hemoglobin 29.3 pg (27.0-33.0) Mean Corpuscular Hemoglobin Concent 33.8 g/dL (32.0-36.0) Red Cell Distribution Width 12.4 % (11.0-15.5) Platelet Count 255 K/uL (130-400) Mean Platelet Volume 11.1 fL (7.5-10.5) H Immature Granulocyte % (Auto) 0.5 % (0-1) Neutrophils (%) (Auto) 90.1 % (40.0-77.0) H Lymphocytes (%) (Auto) 5.2 % (21.0-51.0) L Monocytes (%) (Auto) 3.8 % (3.0-13.0) Eosinophils (%) (Auto) 0.1 % (0.0-8.0) Basophils (%) (Auto) 0.3 % (0.0-5.0) Neutrophils # (Auto) 10.0 K/uL (1.8-7.7) H Lymphocytes # (Auto) 0.6 K/uL (1.0-4.8) L Monocytes # (Auto) 0.4 K/uL (0.1-1.0) Eosinophils # (Auto) 0.01 K/uL (0.00-0.70) Basophils # (Auto) 0.03 K/uL (0.00-0.20) Absolute Immature Granulocyte (auto 0.05 K/uL (0-1) Nucleated Red Blood Cells 0.0 % (0.0-0.19) White Cell Morphology Comment See comments Sodium Level 137 mmol/L (136-145) Potassium Level 3.9 mmol/L (3.5-5.1) Chloride Level 102 mmol/L (101-111) Carbon Dioxide Level 24 mmol/L (21-32) Blood Urea Nitrogen 10 mg/dL (7-18) Creatinine 1.0 mg/dL (0.5-1.3) Glomerular Filtration Rate Calc 109 mL/min (>90) Random Glucose 98 mg/dL (70-105) Lactic Acid Level 1.6 mmol/L (0.8-2.5) Total Calcium 8.6 mg/dL (8.5-10.1) Total Bilirubin 0.4 mg/dL (0.2-1.0) Aspartate Amino Transf (AST/SGOT) 22 U/L (10-37) Alanine Aminotransferase (ALT/SGPT) 43 U/L (12-78) Alkaline Phosphatase 90 U/L (50-136) Total Protein 7.4 g/dL (6.0-8.3) Albumin 3.7 g/dL (3.5-5.0) Whole Blood Glucose 89 MG/DL (70-110) MDM I will order standard labs on this patient including a UA and I will give him some fluid as well as some muscle relaxants. With the IV fluids in the medicine the patient is feeling better I gave him some food and he tolerated it well. His laboratory studies are normal except for minimally elevated white blood cell count and a possible indication of concentrated urine. The patient would like to go home. ED Course Orders Procedure Category Date Status Time Lactic Acid LAB 02/16/25 Complete 03:51 Comprehensive LAB 02/16/25 Complete Metabolic Panel 03:51 Cbc With Differential LAB 02/16/25 Complete 03:51 Urinalysis Profile LAB 02/16/25 Complete 03:51 Ondansetron 4mg Inj PHA 02/16/25 Complete (Zofran 4mg Inj) 04:00 Lactated Ringers PHA 02/16/25 Complete 1000ml (Lactated 03:51 Orphenadrine Citrate PHA 02/16/25 Complete (Norflex) 04:00 Abd 1vw RAD 02/16/25 Taken 03:51 Lidocaine Hcl 2% PHA 02/16/25 Complete Viscous (Lidocaine Hcl 05:30 Mag/Alum/Simeth 30ml PHA 02/16/25 Complete (Maalox Plus 30ml) 05:30 Dicyclomine Hcl PHA 02/16/25 Complete (Bentyl 10mg/5ml 05:30 Ketorolac PHA 02/16/25 Complete Tromethamine 30mg/Ml 05:30 Current Medications Medications (Trade) Dose Ordered Sig/Braulio Route PRN Reason Start Time Stop Time Status Last Admin Dose Admin Al Hydroxide/Mg Hydroxide (MAALox PLUS 30ML) 30 ml ONCE ONCE PO 02/16/25 05:30 02/16/25 05:31 DC 02/16/25 05:19 Dicyclomine HCl (Bentyl 10mg/5ml Syrup) 10 mg ONCE ONCE PO 02/16/25 05:30 02/16/25 05:31 DC 02/16/25 05:21 Ketorolac Tromethamine (toRADol) 30 mg ONCE ONCE IVP 10/6/25 05:30 02/16/25 05:31 DC 02/16/25 05:25 Lactated Ringer's (Lactated Ringers 1000ml) 1,000 ml BOLUS STAT IV 02/16/25 03:51 02/16/25 03:55 DC 02/16/25 04:13 Lidocaine HCl (Lidocaine HCl 2% Viscous) 10 ml ONCE ONCE PO 02/16/25 05:30 02/16/25 05:31 DC 02/16/25 05:19 Ondansetron HCl (zoFRAN 4MG INJ) 4 mg ONCE ONCE IVP 02/16/25 04:00 02/16/25 04:01 DC 02/16/25 04:12 Orphenadrine Citrate (Norflex) 60 mg ONCE ONCE IVP 02/16/25 04:00 02/16/25 04:01 DC 02/16/25 04:12 Vital Signs Date Time Temp Pulse Resp B/P (MAP) Pulse Ox O2 Delivery O2 Flow Rate FiO2 02/16/25 05:10 98.4 107 17 108/73 98 Room Air* 0 21 02/16/25 04:36 98.4 116 18 122/74 98 Room Air* 0 21 02/16/25 03:38 99.3 89 16 153/66 99 Room Air 0 DX & DISP Disposition: Discharge Departure Impression: Primary Impression: Mild dehydration Additional Impressions: Musculoskeletal strain, Nausea Condition: Stable Additional Instructions: You came in with concerns about feeling lightheaded with some abdominal pain nausea and vomiting. I think you were dehydrated as your symptoms improved with the IV fluids. Another possibility is a gastroenteritis as your white blood cell count was just ever so slightly elevated. In either case your feeling better now with fluids. Your abdominal pain I think was musculoskeletal pain. The location and the fact that the tenderness is located along the rectus sheath strongly suggest musculoskeletal pain. I gave you a muscle relaxant and that has help your pain. At this point your eating food and keeping it down. I recommend you stay well hydrated you can use Pedialyte. Drink enough fluid every day so that your urine runs clear at least once a day. Please follow-up with your primary care physician if your symptoms do not improve in the next few days. Referrals: JAMES WALDRON (PCP) FLORENTIN ZAPATA MD Feb 16, 2025 04:25
[2025-02-16 04:38] LABS: CREATININE 1.0 mg/dL (0.5-1.3); GLOMERULAR FILTR. RATE CALC 109.0 mL/min (>90); GLUCOSE,RANDOM 98.0 mg/dL (70-105); SODIUM SERUM 137.0 mmol/L (136-145); UREA NITROGEN, BLOOD 10.0 mg/dL (7-18)
[2025-02-16 04:41] LABS: ASPARTATE AMINOTRANSFERASE 22.0 U/L (10-37); TOTAL PROTEIN, SERUM 7.4 g/dL (6.0-8.3)
--- NOTE | 2025-02-16 05:10 | NUR ---
PT CARE ASSUMED AT THIS TIME
[2025-02-16] MEDS: MAG/ALUM/SIMETH 30 ML UDCUP PO ONE (05:19)
[2025-02-16] MEDS: LIDOCAINE HCL 2% VISCOUS 15 ML UDCUP PO ONE (05:19)
[2025-02-16] MEDS: DICYCLOMINE HCL 10 MG/5 ML ML PO ONE (05:21)
[2025-02-16 06:37] VITALS: BP 121/78; PULSE 98; RESP 16; TEMP 98.3; O2SAT 98
--- NOTE | 2025-02-16 06:39 | HMCIMG ---
EXAM: CR Abdomen, 1 view. CLINICAL HISTORY: Pain. Nausea and vomiting COMPARISON: Prior CT abdomen and pelvis without dated, February 16, 2024 FINDINGS: Non obstructed nonspecific bowel gas pattern. Mild gaseous distention of the stomach. No free air is evident. No abnormal calcification. No aggressive appearing osseous lesion. IMPRESSION: No acute process. No obstructive bowel gas pattern. Mild gaseous distention of the stomach. /[place]
== END 2025-02-16 06:39 | disposition home or self-care (01) ==
LOC: EDH 03:23
DX: S39.011A Strain of muscle, fascia and tendon of abdomen, initial encounter (principal); E86.0 Dehydration; R11.2 Nausea with vomiting, unspecified; F41.9 Anxiety disorder, unspecified; Z79.899 Other long term (current) drug therapy; X58.XXXA Exposure to other specified factors, initial encounter; Y93.89 Activity, other specified; Y92.89 Other specified places as the place of occurrence of the external cause; Y99.8 Other external cause status
CPT/HCPCS: 99284; 96374; 96375; 80053; 85025; 82948; 83605; 81003; 36415; 74018; J1885; J7120; J2405; J2360

== ENCOUNTER 2025-02-20 01:12 | Emergency (ER) | payer BC ==
[~2025-02-20] VITALS: Ht 165.1 cm; Wt 85.7 kg
[2025-02-20 02:12] LABS: IMMATURE GRANULOCYTE ABSOLUTE 0.04 K/uL (0-1); NUCLEATED RED BLOOD CELLS 0.0 % (0.0-0.19); PLATELET COUNT (AUTO) 287 K/uL (130-400); RED BLOOD CELL COUNT(AUTO) 4.90 MIL/uL (4.50-6.20); RED CELL DISTRIBUTION WIDTH 12.3 % (11.0-15.5); WHITE BLOOD COUNT (AUTO) 7.6 K/uL (4.8-10.8)
[2025-02-20 02:32] LABS: CREATININE 0.9 mg/dL (0.5-1.3); GLOMERULAR FILTR. RATE CALC 124.0 mL/min (>90); GLUCOSE,RANDOM 98.0 mg/dL (70-105); SODIUM SERUM 141.0 mmol/L (136-145); UREA NITROGEN, BLOOD 9.0 mg/dL (7-18)
--- NOTE | 2025-02-20 02:32 | ERN ---
General Chief Complaint: Multiple Complaints Stated Complaint: C/O ABD PAIN WITH N X V Time Seen by MD: 01:14 Time Seen by Midlevel: 01:14 Source: patient History of Present Illness Initial Comments The patient is a 20-year-old male presenting to the emergency department for evaluation of generalized body weakness. Patient states he has not been eating well for the past six days and has not been drinking enough fluids. He has been feeling very fatigue. Patient states this is gone on for three months. He also reports he has been having diarrhea for three months. He saw a GI specialist today and has a colonoscopy scheduled in four days. Allergies: Coded Allergies: No Known Drug Allergies (Unverified Allergy, Unknown, 10/26/19) Home Meds Active Scripts Hydroxyzine HCl (Hydroxyzine HCl) 25 Mg Tablet, 1 TAB PO BID for anxiety for 10 Days, #20 TAB 0 Refills Prov:JING MARTINEZ MD 02/02/25 Ondansetron (Ondansetron Odt) 4 Mg Tab.rapdis, 4 MG PO Q8HPRN PRN for nausea, #16 TAB 0 Refills Prov:[facility]E [facility] 01/28/25 Ondansetron (Ondansetron Odt) 4 Mg Tab.rapdis, 4 MG PO Q6HPRN PRN for nausea, #15 TAB 0 Refills Prov:MEGA TORRES [facility] 01/16/25 Dicyclomine HCl (Bentyl) 10 Mg Cap, 1 CAP PO Q6HPRN PRN for irritable bowel symptoms, #15 CAP 0 Refills Prov:MEGA TORRES [facility] 01/16/25 Lactobacillus Acidophilus (Acidophilus Probiotic) 500 Million Cell Capsule, 1 CAP PO DAILY for 30 Days, #30 CAP 0 Refills Prov:HAYDER HE MD 01/07/25 Dicyclomine HCl (Bentyl) 20 Mg Tab, 20 MG PO q12 hours PRN for abdominal pain/cramping, #10 TAB 0 Refills Prov:MEGA TORRES [facility] 11/04/24 Ondansetron (Ondansetron Odt) 8 Mg Tab.rapdis, 4 MG PO Q6H for nausea/vomiting for 3 Days, #12 TAB 0 Refills Prov:MEGA TORRES [facility] 11/04/24 Famotidine (Famotidine) 20 Mg Tablet, 1 TAB PO BID for 30 Days, #60 TAB 0 Re fills Prov:MEGA TORRES [facility] 09/26/24 Ondansetron (Ondansetron Odt) 4 Mg Tab.rapdis, 4 MG PO Q6HPRN PRN for nausea, #15 TAB 0 Refills Prov:MEGA TORRES [facility] 09/26/24 Pantoprazole Sodium (Protonix) 40 Mg Ectab, 1 TAB PO DAILY for 30 Days, #30 TAB 0 Refills Prov:HAYDER HE MD 05/18/24 Famotidine (Pepcid) 20 Mg Tablet, 20 MG PO DAILY for 5 Days, #5 TAB Prov:RAMON SAN [facility] 02/16/24 Ondansetron (Ondansetron Odt) 4 Mg Tab.rapdis, 4 MG PO BID for 7 Days, #14 TAB Prov:RAMON [facility] 02/16/24 Hydroxyzine HCl (Hydroxyzine HCl) 25 Mg Tablet, 25 MG PO BID for anxiety, #15 TAB Prov:HERMELINDA PATEL [facility] 11/24/22 Past Medical History Past Medical History: Anxiety Medical History Other: HYPOGLYCEMIA Past Surgical History: None Surgical History Other: CYST REMOVAL TO RIGHT SHOULDER. Family History Family History: DM Social History Social History: ETOH ROS Dictation CONSTITUTIONAL: Negative except for HPI HEAD/FACE: Negative except for HPI EENT: Negative except for HPI RESPIRATORY: Negative except for HPI GASTROINTESTINAL/ABDOMINAL: Negative except for HPI GENITOURINARY: Negative except for HPI MUSCULOSKELETAL: Negative except for HPI INTEGUMENTARY: Negative except for HPI NEUROLOGICAL/PSYCH: Negative except for HPI HEMATOLOGIC/LYMPHATIC: Negative except for HPI All Systems Negative, Except as noted above. 13 point review of systems assessed and all negative except for above. Physical Exam Physical Exam Dictation Vital Signs reviewed General Appearance: Alert, oriented x 3, no acute distress, well developed, nourished. Head and Face: non-traumatic. Eyes: PERRL, pink conjunctivas, eyelid no trauma, anterior chamber with arcus senilis. Ears: Pinnas intact and no signs of trauma or erythema ear canals clear and no discharge TM no erythema Nose: No discharge, no bleeding. Oropharynx: Mouth normal, tongue pink, pharynx clear,no erythema, tonsils no exudates, no abscesses noted, mucous membrane moist Neck: Supple, non-tender, no thyromegaly, no masses, no JVD, no bruits Breast:Deferred Chest:No tenderness, no crepitus, no paradoxical movement, no retractions Lungs:Clear, well-ventilated, symmetric, no rales, no wheezing, no rhonchi, no stridor, good breath sounds bilaterally Heart: Regular rate, regular rhythm, no murmur, no gallops Vascular: no peripheral edema, Abdomen: Soft, positive bowel sounds, nondistended, no guarding, nontender, no rebound, no masses no hepatomegaly, no splenomegaly, no Ngo's sign, no hernias. Rectal: Deferred Genital: Deferred Neurological: Normal speech, motor function intact, sensory function intact Musculoskeletal: Neck nontender, full range of motion, back nontender, full range of motion, Extremities: nontender, full range of motion Skin: Color pink, dry, no turgor, no rash, no lacerations, no abrasions, no contusions. Lymphatic: Deferred Results Laboratory and Microbiology Lab and Micro Result Laboratory Tests Test 02/20/25 02:03 White Blood Count 7.6 K/uL (4.8-10.8) Red Blood Count 4.90 MIL/uL (4.50-6.20) Hemoglobin 14.4 g/dL (14.0-18.0) Hematocrit 42.7 % (42-54) Mean Corpuscular Volume 87.1 fL (79-99) Mean Corpuscular Hemoglobin 29.4 pg (27.0-33.0) Mean Corpuscular Hemoglobin Concent 33.7 g/dL (32.0-36.0) Red Cell Distribution Width 12.3 % (11.0-15.5) Platelet Count 287 K/uL (130-400) Mean Platelet Volume 10.3 fL (7.5-10.5) Immature Granulocyte % (Auto) 0.5 % (0-1) Neutrophils (%) (Auto) 66.4 % (40.0-77.0) Lymphocytes (%) (Auto) 23.5 % (21.0-51.0) Monocytes (%) (Auto) 7.1 % (3.0-13.0) Eosinophils (%) (Auto) 2.0 % (0.0-8.0) Basophils (%) (Auto) 0.5 % (0.0-5.0) Neutrophils # (Auto) 5.0 K/uL (1.8-7.7) Lymphocytes # (Auto) 1.8 K/uL (1.0-4.8) Monocytes # (Auto) 0.5 K/uL (0.1-1.0) Eosinophils # (Auto) 0.15 K/uL (0.00-0.70) Basophils # (Auto) 0.04 K/uL (0.00-0.20) Absolute Immature Granulocyte (auto 0.04 K/uL (0-1) Nucleated Red Blood Cells 0.0 % (0.0-0.19) Sodium Level 141 mmol/L (136-145) Potassium Level 4.0 mmol/L (3.5-5.1) Chloride Level 103 mmol/L (101-111) Carbon Dioxide Level 29 mmol/L (21-32) Blood Urea Nitrogen 9 mg/dL (7-18) Creatinine 0.9 mg/dL (0.5-1.3) Glomerular Filtration Rate Calc 124 mL/min (>90) Random Glucose 98 mg/dL (70-105) Total Calcium 8.7 mg/dL (8.5-10.1) Total Bilirubin 0.2 mg/dL (0.2-1.0) Aspartate Amino Transf (AST/SGOT) 22 U/L (10-37) Alanine Aminotransferase (ALT/SGPT) 55 U/L (12-78) Alkaline Phosphatase 89 U/L (50-136) Total Protein 7.7 g/dL (6.0-8.3) Albumin 3.8 g/dL (3.5-5.0) Lipase 16 U/L (16-77) Labs Reviewed?: Yes MDM MDM: Differential diagnosis: Anxiety, gastroenteritis, wellness examination There are no social concerns with this patient. Prescription drug management Prescriptions will include: None Medical management and examination interpretation discussions were had by me with other qualified healthcare professionals as indicated for the patient's c are. ED Course Orders Procedure Category Date Status Time Cbc With Differential LAB 02/20/25 Complete 01:56 Comprehensive LAB 02/20/25 Complete Metabolic Panel 01:56 Lipase LAB 10/10/25 Complete 01:56 0.9%Nacl 1000ml (Ns PHA 02/20/25 Complete 1000ml) 02:00 Current Medications Medications (Trade) Dose Ordered Sig/Braulio Route PRN Reason Start Time Stop Time Status Last Admin Dose Admin Sodium Chloride 1,000 ml @ 0 mls/hr ONCE ONCE IV 02/20/25 02:00 02/20/25 02:02 DC 02/20/25 02:42 Vital Signs Date Time Temp Pulse Resp B/P (MAP) Pulse Ox O2 Delivery O2 Flow Rate FiO2 02/20/25 01:13 98.1 82 18 120/76 99 Room Air DX & DISP Disposition: Discharge Departure Impression: Primary Impression: Wellness examination Condition: Stable Additional Instructions: Your blood work is unremarkable. Continue with your colonoscopy prep. Follow up with your GI doctor as scheduled. Referrals: JAMES WALDRON (PCP) I have reviewed the case, and I agree with, Diagnosis and Plan I performed the substantive portion of the visit. I have reviewed and personally made and approve the management plan that is documented in the note by myself or the MARLON. I acknowledge for responsibility for the patient's management plan. RAMON SAN PAC Feb 20, 2025 02:31
[2025-02-20 02:36] LABS: ASPARTATE AMINOTRANSFERASE 22.0 U/L (10-37); TOTAL PROTEIN, SERUM 7.7 g/dL (6.0-8.3)
[2025-02-20] MEDS: 0.9%NACL 1000ML 1,000 ML IV ONE (02:42)
[2025-02-20 03:37] VITALS: BP 116/69; PULSE 73; RESP 19; TEMP 97.7; O2SAT 98
== END 2025-02-20 03:44 | disposition home or self-care (01) ==
LOC: EDH 01:12
DX: R53.1 Weakness (principal); R11.2 Nausea with vomiting, unspecified; R19.7 Diarrhea, unspecified; F41.9 Anxiety disorder, unspecified; Z79.899 Other long term (current) drug therapy
CPT/HCPCS: 36415; 80053; 83690; 85025; 99283

== ENCOUNTER 2025-02-27 21:16 | Emergency (ER) | payer BC ==
[~2025-02-27] VITALS: Ht 165.1 cm; Wt 85.7 kg
--- NOTE | 2025-02-27 21:30 | ERN ---
ED Note History of Present Illness Stated Complaint: DIZZINESS Chief Complaint: Dizzy/Light Headed Time Seen by MD: 21:23 Dictation: PATIENT IS A 20-YEAR-OLD MALE COMING IN TODAY VIA EMS WITH COMPLAINTS OF DIZZINESS WITH NAUSEA WORSE WHEN HE TURNS HIS HEAD FOR THE LAST 2-3 DAYS. DENIES ANY HEADACHE AT THIS TIME NIH IS 0. HE STATES HE HAS A HISTORY OF DIZZINESS IN THE PAST HOWEVER HE HAS NOT BEEN TO SEE HIS DOCTOR. Allergies: Coded Allergies: No Known Drug Allergies (Unverified Allergy, Unknown, 10/26/19) Home Meds Active Scripts Hydroxyzine HCl (Hydroxyzine HCl) 25 Mg Tablet, 1 TAB PO BID for anxiety for 10 Days, #20 TAB 0 Refills Prov:JING MARTINEZ MD 02/02/25 Ondansetron (Ondansetron Odt) 4 Mg Tab.rapdis, 4 MG PO Q8HPRN PRN for nausea, #16 TAB 0 Refills Prov:[facility] 01/28/25 Ondansetron (Ondansetron Odt) 4 Mg Tab.rapdis, 4 MG PO Q6HPRN PRN for nausea, #15 TAB 0 Refills Prov:MEGA TORRES [facility] 01/16/25 Dicyclomine HCl (Bentyl) 10 Mg Cap, 1 CAP PO Q6HPRN PRN for irritable bowel symptoms, #15 CAP 0 Refills Prov:MEGA TORRES [facility] 01/16/25 Lactobacillus Acidophilus (Acidophilus Probiotic) 500 Million Cell Capsule, 1 CAP PO DAILY for 30 Days, #30 CAP 0 Refills Prov:HAYDER HE MD 01/07/25 Dicyclomine HCl (Bentyl) 20 Mg Tab, 20 MG PO q12 hours PRN for abdominal pain/cramping, #10 TAB 0 Refills Prov:MEGA TORRESP 11/04/24 Ondansetron (Ondansetron Odt) 8 Mg Tab.rapdis, 4 MG PO Q6H for nausea/vomiting for 3 Days, #12 TAB 0 Refills Prov:MEGA TORRES [facility] 11/04/24 Famotidine (Famotidine) 20 Mg Tablet, 1 TAB PO BID for 30 Days, #60 TAB 0 Refills Prov:MEGA TORRES [facility] 09/26/24 Ondansetron (Ondansetron Odt) 4 Mg Tab.rapdis, 4 MG PO Q6HPRN PRN for nausea, #15 TAB 0 Refills Prov:MEGA TORRES [facility] 09/26/24 Pantoprazole Sodium (Protonix) 40 Mg Ectab, 1 TAB PO DAILY for 30 Days, #30 TAB 0 Refills Prov:HAYDER HE MD 05/18/24 Famotidine (Pepcid) 20 Mg Tablet, 20 MG PO DAILY for 5 Days, #5 TAB Prov:[facility] 02/16/24 Ondansetron (Ondansetron Odt) 4 Mg Tab.rapdis, 4 MG PO BID for 7 Days, #14 TAB Prov:[facility] 02/16/24 Hydroxyzine HCl (Hydroxyzine HCl) 25 Mg Tablet, 25 MG PO BID for anxiety, #15 TAB Prov:HERMELINDA PATEL [facility] 11/24/22 Past Medical History Past Medical History: Anxiety Additional Past Medical Hx: HYPOGLYCEMIA Surgical History: None Surgical History Other: CYST REMOVAL TO RIGHT SHOULDER. Family History: DM Social History: ETOH RN Note Reviewed/Agreed w/PFSH: Yes Review of System Dictation CONSTITUTIONAL: NEGATIVE EXCEPT FOR HPI HEAD/FACE: NEGATIVE EXCEPT FOR HPI EENT: NEGATIVE EXCEPT FOR HPI RESPIRATORY: NEGATIVE EXCEPT FOR HPI GASTROINTESTINAL/ABDOMINAL: NEGATIVE EXCEPT FOR HPI NAUSEA GENITOURINARY: NEGATIVE EXCEPT FOR HPI MUSCULOSKELETAL: NEGATIVE EXCEPT FOR HPI INTEGUMENTARY: NEGATIVE EXCEPT FOR HPI NEUROLOGICAL/PSYCH: NEGATIVE EXCEPT FOR HPI DIZZINESS/VERTIGO HEMATOLOGIC/LYMPHATIC: NEGATIVE EXCEPT FOR HPI ALL SYSTEMS NEGATIVE, EXCEPT NOTED ABOVE. 13 POINT REVIEW OF SYSTEMS ASSESSED AND ALL NEGATIVE EXCEPT FOR ABOVE. Initial Vital Sign VS Vital Signs Date Time Temp Pulse Resp B/P (MAP) Pulse Ox O2 Delivery O2 Flow Rate FiO2 02/27/25 21:25 98.2 98 16 121/77 100 Room Air 0 Physical Exam Dictation VITAL SIGNS REVIEWED GENERAL APPEARANCE: ALERT, ORIENTED X 3, NO ACUTE DISTRESS, WELL DEVELOPED, NOURISHED. HEAD AND FACE: NON-TRAUMATIC. EYES: PERRL, PINK CONJUNCTIVAS, EYELID NO TRAUMA, ANTERIOR CHAMBER WITH ARCUS SENILIS. LEFT HORIZONTAL NYSTAGMUS EARS: PINNAS INTACT AND NO SIGNS OF TRAUMA OR ERYTHEMA EAR CANALS CLEAR AND NO DISCHARGE TM NO ERYTHEMA NOSE: NO DISCHARGE, NO BLEEDING. OROPHARYNX: MOUTH NORMAL, TONGUE PINK, PHARYNX CLEAR,NO ERYTHEMA, TONSILS NO EXUDATES, NO ABSCESSES NOTED, MUCOUS MEMBRANE MOIST NECK: SUPPLE, NON-TENDER, NO THYROMEGALY, NO MASSES, NO JVD, NO BRUITS BREAST:DEFERRED CHEST:NO TENDERNESS, NO CREPITUS, NO PARADOXICAL MOVEMENT, NO RETRACTIONS LUNGS:CLEAR, WELL-VENTILATED, SYMMETRIC, NO RALES, NO WHEEZING, NO RHONCHI, NO STRIDOR, GOOD BREATH SOUNDS BILATERALLY HEART: REGULAR RATE, REGULAR RHYTHM, NO MURMUR, NO GALLOPS VASCULAR: NO PERIPHERAL EDEMA, ABDOMEN: SOFT, POSITIVE BOWEL SOUNDS, NONDISTENDED, NO GUARDING, NONTENDER, NO REBOUND, NO MASSES NO HEPATOMEGALY, NO SPLENOMEGALY, NO DE LEON'S SIGN, NO HERNIAS. RECTAL: DEFERRED GENITAL: DEFERRED NEUROLOGICAL: NORMAL SPEECH, MOTOR FUNCTION INTACT, SENSORY FUNCTION INTACT NIH IS 0, GAIT IS STEADY MUSCULOSKELETAL: NECK NONTENDER, FULL RANGE OF MOTION, BACK NONTENDER, FULL RANGE OF MOTION, EXTREMITIES: NONTENDER, FULL RANGE OF MOTION SKIN: COLOR PINK, DRY, NO TURGOR, NO RASH, NO LACERATIONS, NO ABRASIONS, NO CONTUSIONS. LYMPHATIC: DEFERRED Results (Laboratory/Radiology) Laboratory/Radiology Laboratory Tests Test 02/27/25 21:39 Whole Blood Glucose 79 MG/DL (70-110) Labs Reviewed?: Yes ED Course ED Course Orders Procedure Category Date Status Time Ondansetron Odt 4mg PHA 02/27/25 Complete Tab (Zofran 4mg Odt) 21:30 Dexamethasone 4mg/Ml PHA 02/27/25 Complete 1ml Vial (Dexametha 21:30 Meclizine Hcl 25 Mg PHA 02/27/25 Complete (Antivert 25 Mg) 21:30 Current Medications Medications (Trade) Dose Ordered Sig/Braulio Route PRN Reason Start Time Stop Time Status Last Admin Dose Admin Dexamethasone Sodium Phosphate (dexaMETHasone 4MG/ML 1ML VIAL) 8 mg ONCE ONCE IM 02/27/25 21:30 02/27/25 22:07 DC Meclizine HCl (ANTIvert 25 mg) 50 mg ONCE ONCE PO 02/27/25 21:30 02/27/25 22:07 DC Ondansetron HCl (zoFRAN 4MG ODT) 4 mg ONCE ONCE SL 02/27/25 21:30 02/27/25 22:07 DC Vital Signs Date Time Temp Pulse Resp B/P (MAP) Pulse Ox O2 Delivery O2 Flow Rate FiO2 02/27/25 21:25 98.2 98 16 121/77 100 Room Air 0 PATIENT STATES HE FEELS BETTER AFTER MECLIZINE ZOFRAN AND DECADRON. DISCHARGED HOME WITH ZOFRAN/MEDROL/MECLIZINE Medical Decision Making MDM MEDICAL DECISION-MAKING BASED ON EMPIRIC TREATMENT FOR VERTIGO AND LABYRINTHITIS. PATIENT STATES HE FEELS MARKEDLY IMPROVED AFTER MECLIZINE/ZOFRAN/DECADRON DISCHARGED HOME WITH THE SAME TOLD SEE HIS PRIMARY CARE DOCTOR ON SUNDAY DX & DISP Disposition: Discharge Departure Impression: Primary Impression: Positional vertigo Additional Impression: Nausea Condition: Stable Scripts Ondansetron (Ondansetron Odt) 4 Mg Tab.rapdis 4 MG PO Q6HPRN PRN for nausea, #16 TAB 0 Refills Prov: [facility]I [facility] [employer] 02/27/25 Meclizine HCl (Meclizine HCl) 25 Mg Tablet 25 MG PO TID for vertigo, #30 TAB 0 Refills Prov: K[employer]I [employer] 02/27/25 Methylprednisolone (Medrol) 4 Mg Tab.ds.pk 1 TAB PO AD for 6 Days, #21 TAB 0 Refills 6 on day 1 then reduce by one tablet daily until gone Prov: K[employer]I [facility] 02/27/25 Additional Instructions: FOLLOW-UP WITH PRIMARY CARE PROVIDER IN 1 TO 2 DAYS. TAKE MEDICATIONS DIRECTED HERE IN THE EMERGENCY ROOM. OKAY TO CONTINUE HOME MEDICATIONS UNLESS OTHERWISE DISCUSSED DURING YOUR VISIT IN THE EMERGENCY ROOM TODAY. RETURN TO YOUR NEAREST EMERGENCY ROOM IF SYMPTOMS WORSEN OR IF THERE IS NO IMPROVEMENT. CALL 911 IF YOU NEED IMMEDIATE ASSISTANCE. TAKE TYLENOL OR MOTRIN [id number] NEEDED AND IF NO CONTRAINDICATIONS ARE PRESENT. INCREASE ORAL HYDRATION. A WOUND CULTURE OR URINE CULTURE WAS ORDERED HERE IN THE EMERGENCY ROOM DEPARTMENT PLEASE FOLLOW-UP WITH PRIMARY CARE PROVIDER AND ADVISE THEM TO GET REPEAT PORTS FROM OUR FACILITY. IF YOU HAD ANY DONNA WRAP/SPLINTS THAT WERE APPLIED HERE, PLEASE DO NOT REMOVE THEM UNTIL YOU SEE YOUR PRIMARY CARE OR SPECIALTY. TAKE MEDROL DOSEPAK DIRECTED UNTIL GONE. TAKE MECLIZINE EVERY 8 HOURS FOR THE NEXT THREE DAYS. INCREASE YOUR WATER INTAKE. SEE YOUR PRIMARY CARE DOCTOR FOR FOLLOW UP ON SUNDAY FOR ALL YOUR COMPLAINTS AND CONCERNS Referrals: JAMES WALDRON (PCP) Time of Disposition: 22:22 I have reviewed the case, and I agree with, Diagnosis and Plan [employer]I [employer] Feb 27, 2025 21:30
--- NOTE | 2025-02-27 21:42 | NUR ---
FINGERSTICK GLUCOSE = 79MG/DL
[2025-02-27] MEDS ORDERED: METH4TAB3 PO (22:23)
[2025-02-27] MEDS ORDERED: ONDA-243 PO (22:23)
[2025-02-27] MEDS ORDERED: MECL-302 PO (22:23)
[2025-02-27 22:44] VITALS: BP 132/78; PULSE 89; RESP 18; TEMP 98.3; O2SAT 98
== END 2025-02-27 22:52 | disposition home or self-care (01) ==
LOC: EDH 21:16
DX: H81.10 Benign paroxysmal vertigo, unspecified ear (principal); R11.0 Nausea; F41.9 Anxiety disorder, unspecified; Z79.899 Other long term (current) drug therapy
CPT/HCPCS: 99284; 82948 ×2; 96372; J1100

== ENCOUNTER 2025-03-08 17:49 | Emergency (ER) | payer BC ==
[~2025-03-08] VITALS: Ht 165.1 cm; Wt 86.2 kg
[~2025-03-08 17:49] MED LIST changes: +MECL-302 PO; +METH4TAB3 PO
[2025-03-08 17:51] VITALS: TEMP 98.7
[2025-03-08] MEDS ORDERED: 0.9%NACL 1000ML 1,000 ML IV ONE (18:00)
[2025-03-08 18:17] LABS: IMMATURE GRANULOCYTE ABSOLUTE 0.04 K/uL (0-1); NUCLEATED RED BLOOD CELLS 0.0 % (0.0-0.19); PLATELET COUNT (AUTO) 314 K/uL (130-400); RED BLOOD CELL COUNT(AUTO) 5.10 MIL/uL (4.50-6.20); RED CELL DISTRIBUTION WIDTH 12.4 % (11.0-15.5); WHITE BLOOD COUNT (AUTO) 8.9 K/uL (4.8-10.8)
[2025-03-08 18:24] LABS: CREATININE 1.0 mg/dL (0.5-1.3); GLOMERULAR FILTR. RATE CALC 109.0 mL/min (>90); GLUCOSE,RANDOM 100.0 mg/dL (70-105); SODIUM SERUM 141.0 mmol/L (136-145); UREA NITROGEN, BLOOD 9.0 mg/dL (7-18)
[2025-03-08 18:29] LABS: CREATINE KINASE, TOTAL 99.0 U/L (21-232)
--- NOTE | 2025-03-08 18:39 | ERN ---
General Chief Complaint: Multiple Complaints Stated Complaint: MULTIPLE COMPLAINTS Time Seen by MD: 17:56 Time Seen by Midlevel: 17:56 Source: patient History of Present Illness Initial Comments 20-year-old male who was recently diagnosed with IBS presents to the emergency department for evaluation of leg cramping. Patient reports chronic area in his concerned he may be dehydrated. Allergies: Coded Allergies: No Known Drug Allergies (Unverified Allergy, Unknown, 10/26/19) Home Meds Active Scripts Ondansetron (Ondansetron Odt) 4 Mg Tab.rapdis, 4 MG PO Q6HPRN PRN for nausea, #16 TAB 0 Refills Prov:[facility] 02/27/25 Meclizine HCl (Meclizine HCl) 25 Mg Tablet, 25 MG PO TID for vertigo, #30 TAB 0 Refills Prov:[facility] 02/27/25 Methylprednisolone (Medrol) 4 Mg Tab.ds.pk, 1 TAB PO AD for 6 Days, #21 TAB 0 Refills 6 on day 1 then reduce by one tablet daily until gone Prov:[facility] 02/27/25 Hydroxyzine HCl (Hydroxyzine HCl) 25 Mg Tablet, 1 TAB PO BID for anxiety for 10 Days, #20 TAB 0 Refills Prov:JING MARTINEZ MD 02/02/25 Ondansetron (Ondansetron Odt) 4 Mg Tab.rapdis, 4 MG PO Q8HPRN PRN for nausea, #16 TAB 0 Refills Prov:[facility] 01/28/25 Ondansetron (Ondansetron Odt) 4 Mg Tab.rapdis, 4 MG PO Q6HPRN PRN for nausea, #15 TAB 0 Refills Prov:MEGA [facility] 01/16/25 Dicyclomine HCl (Bentyl) 10 Mg Cap, 1 CAP PO Q6HPRN PRN for irritable bowel symptoms, #15 CAP 0 Refills Prov:MEGA [facility] 01/16/25 Lactobacillus Acidophilus (Acidophilus Probiotic) 500 Million Cell Capsule, 1 CAP PO DAILY for 30 Days, #30 CAP 0 Refills Prov:HAYDER HE MD 01/07/25 Dicyclomine HCl (Bentyl) 20 Mg Tab, 20 MG PO q12 hours PRN for abdominal pain/cramping, #10 TAB 0 Refills Prov:[facility] 11/04/24 Ondansetron (Ondansetron Odt) 8 Mg Tab.rapdis, 4 MG PO Q6H for nausea/vomiting for 3 Days, #12 TAB 0 Refills Prov:[facility] 11/04/24 Famotidine (Famotidine) 20 Mg Tablet, 1 TAB PO BID for 30 Days, #60 TAB 0 Refills Prov:[facility] 09/26/24 Ondansetron (Ondansetron Odt) 4 Mg Tab.rapdis, 4 MG PO Q6HPRN PRN for nausea, #15 TAB 0 Refills Prov:[facility] 09/26/24 Pantoprazole Sodium (Protonix) 40 Mg Ectab, 1 TAB PO DAILY for 30 Days, #30 TAB 0 Refills Prov:HAYDER HE MD 05/18/24 Famotidine (Pepcid) 20 Mg Tablet, 20 MG PO DAILY for 5 Days, #5 TAB Prov:RAMON SAN PAC 02/16/24 Ondansetron (Ondansetron Odt) 4 Mg Tab.rapdis, 4 MG PO BID for 7 Days, #14 TAB Prov:RAMON SAN PAC 02/16/24 Hydroxyzine HCl (Hydroxyzine HCl) 25 Mg Tablet, 25 MG PO BID for anxiety, #15 TAB Prov:HERMELINDA PATEL PAC 11/24/22 Past Medical History Past Medical History: No Pertinent History, IBS Medical History Other: HYPOGLYCEMIA Past Surgical History: Other Surgical History Other: COLONOSCOPY Family History Family History: DM Social History Social History: ETOH ROS Dictation CONSTITUTIONAL: Negative except for HPI HEAD/FACE: Negative except for HPI EENT: Negative except for HPI RESPIRATORY: Negative except for HPI GASTROINTESTINAL/ABDOMINAL: Negative except for HPI GENITOURINARY: Negative except for HPI MUSCULOSKELETAL: Negative except for HPI INTEGUMENTARY: Negative except for HPI NEUROLOGICAL/PSYCH: Negative except for HPI HEMATOLOGIC/LYMPHATIC: Negative except for HPI All Systems Negative, Except as noted above. 13 point review of systems assessed and all negative except for above. Physical Exam Physical Exam Dictation Vital Signs reviewed General Appearance: Alert, oriented x 3, no acute distress, well developed, nourished. Head and Face: non-traumatic. Eyes: PERRL, pink conjunctivas, eyelid no trauma, anterior chamber with arcus senilis. Ears: Pinnas intact and no signs of trauma or erythema ear canals clear and no discharge TM no erythema Nose: No discharge, no bleeding. Oropharynx: Mouth normal, tongue pink, pharynx clear,no erythema, tonsils no exudates, no abscesses noted, mucous membrane moist Neck: Supple, non-tender, no thyromegaly, no masses, no JVD, no bruits Breast:Deferred Chest:No tenderness, no crepitus, no paradoxical movement, no retractions Lungs:Clear, well-ventilated, symmetric, no rales, no wheezing, no rhonchi, no stridor, good breath sounds bilaterally Heart: Regular rate, regular rhythm, no murmur, no gallops Vascular: no peripheral edema, Abdomen: Soft, positive bowel sounds, nondistended, no guarding, nontender, no rebound, no masses no hepatomegaly, no splenomegaly, no Ngo's sign, no hernias. Rectal: Deferred Genital: Deferred Neurological: Normal speech, motor function intact, sensory function intact Musculoskeletal: Neck nontender, full range of motion, back nontender, full range of motion, Extremities: nontender, full range of motion Skin: Color pink, dry, no turgor, no rash, no lacerations, no abrasions, no contusions. Lymphatic: Deferred Results Laboratory and Microbiology Lab and Micro Result Laboratory Tests Test 03/08/25 18:05 White Blood Count 8.9 K/uL (4.8-10.8) Red Blood Count 5.10 MIL/uL (4.50-6.20) Hemoglobin 14.7 g/dL (14.0-18.0) Hematocrit 43.7 % (42-54) Mean Corpuscular Volume 85.7 fL (79-99) Mean Corpuscular Hemoglobin 28.8 pg (27.0-33.0) Mean Corpuscular Hemoglobin Concent 33.6 g/dL (32.0-36.0) Red Cell Distribution Width 12.4 % (11.0-15.5) Platelet Count 314 K/uL (130-400) Mean Platelet Volume 10.7 fL (7.5-10.5) H Immature Granulocyte % (Auto) 0.4 % (0-1) Neutrophils (%) (Auto) 66.7 % (40.0-77.0) Lymphocytes (%) (Auto) 22.5 % (21.0-51.0) Monocytes (%) (Auto) 7.0 % (3.0-13.0) Eosinophils (%) (Auto) 2.8 % (0.0-8.0) Basophils (%) (Auto) 0.6 % (0.0-5.0) Neutrophils # (Auto) 6.0 K/uL (1.8-7.7) Lymphocytes # (Auto) 2.0 K/uL (1.0-4.8) Monocytes # (Auto) 0.6 K/uL (0.1-1.0) Eosinophils # (Auto) 0.25 K/uL (0.00-0.70) Basophils # (Auto) 0.05 K/uL (0.00-0.20) Absolute Immature Granulocyte (auto 0.04 K/uL (0-1) Nucleated Red Blood Cells 0.0 % (0.0-0.19) Sodium Level 141 mmol/L (136-145) Potassium Level 3.9 mmol/L (3.5-5.1) Chloride Level 104 mmol/L (101-111) Carbon Dioxide Level 28 mmol/L (21-32) Blood Urea Nitrogen 9 mg/dL (7-18) Creatinine 1.0 mg/dL (0.5-1.3) Glomerular Filtration Rate Calc 109 mL/min (>90) Random Glucose 100 mg/dL (70-105) Total Calcium 8.5 mg/dL (8.5-10.1) Magnesium Level 2.00 mg/dL (1.80-2.40) Total Creatine Kinase 99 U/L (21-232) Labs Reviewed?: Yes MDM MDM: Differential diagnosis: Anxiety, wellness examination, electrolyte abnormality, dehydration There are no social concerns with this patient. Prescription drug management Prescriptions will include: Loperamide Medical management and examination interpretation discussions were had by me with other qualified healthcare professionals as indicated for the patient's care. ED Course Orders Procedure Category Date Status Time Cbc With Differential LAB 03/08/25 Complete 17:56 Basic Metabolic Panel LAB 03/08/25 Complete 17:56 Creatine Kinase, Total LAB 03/08/25 Complete 17:56 Magnesium LAB 03/08/25 Complete 17:56 0.9%Nacl 1000ml (Ns PHA 03/08/25 Complete 1000ml) 18:00 Current Medications Medications (Trade) Dose Ordered Sig/Braulio Route PRN Reason Start Time Stop Time Status Last Admin Dose Admin Sodium Chloride 1,000 ml @ 0 mls/hr ONCE ONCE IV 03/08/25 18:00 03/08/25 18:01 DC Vital Signs Date Time Temp Pulse Resp B/P (MAP) Pulse Ox O2 Delivery O2 Flow Rate FiO2 03/08/25 17:51 98.8 108 18 140/97 98 N/C High Flow System 0 DX & DISP Disposition: Discharge Departure Impression: Primary Impression: History of IBS Condition: Stable Scripts Loperamide HCl (Loperamide) 2 Mg Capsule 2 MG PO 5XDAY for diarrhea, #10 CAP 0 Refills Take 2 tablets initially and then 1 tablet with every loose bowel movement. Prov: RAMON SAN PAC 03/08/25 Additional Instructions: Your blood work today is unremarkable. All of your electrolytes are normal. Your kidney function is normal. There are no signs of dehydration. No need for IV fluids at this time. Continue with oral hydration at home. Follow up with your primary care doctor. Referrals: JAMES WALDRON (PCP) I have reviewed the case, and I agree with, Diagnosis and Plan I performed the substantive portion of the visit. I have reviewed and personally made and approve the management plan that is documented in the note by myself or the MARLON. I acknowledge for responsibility for the patient's management plan. RAMON SAN PAC Mar 08, 2025 18:39
[2025-03-08] MEDS ORDERED: LOPE2CAP PO (18:41)
[2025-03-08 19:37] VITALS: BP 135/70; PULSE 101; RESP 17; O2SAT 98
== END 2025-03-08 19:37 | disposition home or self-care (01) ==
LOC: EDH 17:49
DX: K58.0 Irritable bowel syndrome with diarrhea (principal); R25.2 Cramp and spasm; Z79.899 Other long term (current) drug therapy
CPT/HCPCS: 36415; 80048; 82550; 83735; 85025; 99283